=== PATIENT | female | born 1950 | race Caucasian/White ===

== ENCOUNTER 2016-08-11 02:08 | Inpatient (IN) | payer OTHER ==
[~2016-08-11] VITALS: Ht 160 cm; Wt 43.5 kg
[~2016-08-11 02:08] MED LIST: ALIGN4 MG PO; AUGMENTIN 875875 MG PO; BLACK CHERRY PO; CALCIUM 600600 M1 PO; CANASA1000 MG RC; CIPRO 500MG TA500 MG PO; CRANBERRY200 MG PO; CRANBERRY400 M1 PO; DILAUDID2 M1 PO; DILAUDID2 MG PO; FISH OIL CONCEN1 SGL PO; FLAG500 PO; GLUCOSAMINE & C1 CAP PO; HAIR VITAMINS E1 TAB PO; LEVSIN/SL0.125 MG SL; LOMOTIL 0.025 M1 TAB PO; MELATONIN5 M1 PO; MELOXICAM15 MG PO; MSIR PO; OMEPRAZOLE D/R20 MG PO; PERCOCET 325 MG1 TA2 PO; PHENERGAN25 M1 PO; PHENERGAN25 MG PO; PRINIVIL 5MG5 MG PO; PROBIOTIC FORM1 EACH PO; PROBIOTIC FORMU1 CA1 PO; PROMETHAZINE25 M1 PO; REGLAN10 MG PO; TYLENOL TAB 32325 MG PO; VITAMIN B-121000 MC3 PO; VITAMIN C500 M6 PO; VITAMIN D31000 UNI2 PO; VITAMIN E100 I1 PO; VITAMIN E100 UNI3 PO; ZOFRAN 4 MG TABL4 MG PO; ZOFRAN ODT4 MG PO
--- NOTE | 2016-08-11 02:24 | NUR ---
PT WITH HX BOWEL OBSTRUCTION C/O NAUSEA, VOMITING, AND DIFFUSE ABDOMINAL PAIN FOR PAST 4 HOURS.
--- NOTE | 2016-08-11 02:33 | ED GI/GU/ABDOMINAL COMPLAINT ---
History of Present Illness General Chief Complaint: General Adult Stated Complaint: "PER PT N+V+D, CHILLS" Source: patient, family, old records Exam Limitations: no limitations Vital Signs & Intake/Output Vital Signs & Intake/Output Vital Signs Date Time Temp Pulse Resp B/P Pulse O2 O2 Flow FiO2 Ox Delivery Rate 08/11 0431 101 18 148/69 97 08/11 0223 97.7 88 18 154/87 97 Allergies Coded Allergies: NO KNOWN ALLERGIES (09/07/15) Reconcile Medications Ascorbic Acid (Vitamin C) 500 MG TAB 1 TAB PO DAILY SUPPLEMENT (Reported) [BLACK SERNA] 1 CAP PO DAILY SUPPLEMENT (Reported) Cholecalciferol (Vitamin D3) 1,000 UNIT TABLET 1,000 IU PO DAILY VITAMIN D SUPPLEMET (Reported) CRANBERRY FRUIT CONCENTRATE (Cranberry) (Unknown Strength) CAP (Unknown Dose) PO DAILY SUPPLEMENT (Reported) Cyanocobalamin (Vitamin B-12) (Unknown Strength) TAB (Unknown Dose) PO DAILY SUPPLEMENT (Reported) Hydromorphone HCl (Dilaudid) 2 MG TABLET 1 TAB PO Q6H PRN PAIN Lactobacillus Acidophilus (Probiotic Formula Capsule) 1 CAP CAP 1 CAP PO DAILY SUPPLEMENT (Reported) Lisinopril (Prinivil) 5 MG TABLET 1 TAB PO DAILY BP (Reported) Multivitamin, Minerals, and 88 (Hair Vitamins Extra Strength) (Unknown Strength) TAB 1 TAB PO DAILY SUPPLEMENT (Reported) Promethazine Hydrochloride (Phenergan) 25 MG TAB 1 TAB PO Q6H PRN NAUSEA Vitamin E Succinate (Vitamin E) (Unknown Strength) TAB (Unknown Dose) PO DAILY SUPPLEMENT (Reported) Triage Note: PT WITH HX BOWEL OBSTRUCTION C/O NAUSEA LLQ PAIN AND CHILLS FOR PAST 3 HOURS. Triage Nurses Notes Reviewed? yes ? N Is pt currently ? No HPI: Patient presents with a 4 hour long history of crampy diffuse abdominal pain as well as nausea vomiting and diarrhea. The diarrhea is constant over the past few years however the nausea and vomiting is new since this evening. The pain is cramping and is diffuse however there is no radiation outside of the abdominal area. There are no aggravating or mitigating factors. The pain is 10 out of 10. Patient does not know if the pain is similar or dissimilar to her prior small bowel obstructions. Past History Travel History Traveled to [place] past 21 day No Medical History Any Pertinent Medical History? 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 [employer]/Reproductive: miscarriage, OOPHORECTOMY History of MRSA: No History of VRE: No History of CDIFF: No Surgical History Surgical History: colon resection (2001), hysterectomy, right subclavian Port-A- C enucleation right eye bunions ileostomy reversal 2003 laparotomy, lysis of adhesions, revision of anastomosis, ventral hernia repair 01/11/15 ILEECTOMY, LYSIS OF ADHESION Psychosocial History Who do you live with Son Services at Home None What is your primary language Vietnamese Tobacco Use: Never used ETOH Use: denies use Illicit Drug Use: denies illicit drug use Family History Family History, If Any: MOTHER FH: CAD (coronary artery disease) FH: ovarian cancer FATHER FH: CAD (coronary artery disease) FATHER (CAD s/p bipass age 69). Hx Contributory? No Review of Systems Review of Systems Constitutional: Reports: no symptoms. EENTM: Reports: no symptoms. Respiratory: Reports: no symptoms. Cardiovascular: Reports: no symptoms. GI: Reports: see HPI, abdominal pain, diarrhea, nausea, vomiting. Genitourinary: Reports: no symptoms. Musculoskeletal: Reports: no symptoms. Skin: Reports: no symptoms. Neurological/Psychological: Reports: no symptoms. Hematologic/Endocrine: Reports: no symptoms. Immunologic/Allergic: Reports: no symptoms. All Other Systems: Reviewed and Negative Physical Exam Physical Exam General Appearance: well developed/nourished, alert, awake, anxious, severe distress Head: atraumatic, normal appearance Eyes: Bilateral: PERRL, EOMI. Ears, Nose, Throat, Mouth: hearing grossly normal, DRY MUCOUS MEMBRANES Neck: normal inspection, supple, full range of motion Respiratory: normal breath sounds, chest non-tender, no respiratory distress, lungs clear Cardiovascular: regular rate/rhythm, normal peripheral pulses Gastrointestinal: normal bowel sounds, soft, tenderness, NO GUARDING OR REBOUND Back: normal inspection, normal range of motion Extremities: normal range of motion Neurologic/Psych: no motor/sensory deficits, awake, alert, oriented x 3, normal mood/affect Skin: intact, normal color, warm/dry Core Measures ACS in differential dx? No Severe Sepsis Present: No Septic Shock Present: No Progress Differential Diagnosis: bowel obstruction, gastritis, hepatitis, ischemic bowel, inflamm bowel dis, pancreatitis, SBO, UTI/pyelo Plan of Care: Orders Procedure Date/time Status Place in observation 08/11 458 Active Telemetry/Rn Homecare 08/11 229 Active URINALYSIS 08/11 229 Complete TROPONIN LEVEL 08/11 229 Complete LIPASE 08/11 229 Complete COMPREHENSIVE METABOLIC PANEL 08/11 229 Complete CBC WITHOUT DIFFERENTIAL 08/11 229 Complete AMYLASE 08/11 229 Complete EKG 08/11 229 Active Laboratory Tests 08/11/16 0432: Urine Color STRAW, Urine Clarity CLEAR, Urine pH 7.5, Ur Specific [place] 1.010, Urine Protein NEG, Urine Ketones NEG, Urine Nitrite NEG, Urine Bilirubin NEG, Urine Urobilinogen 0.2, Ur Leukocyte Esterase NEG, Ur Microscopic EXAM NOT REQUIRED, Urine Hemoglobin NEG, Urine Glucose NEG 08/11/16 0246: Anion Gap 10, Estimated GFR > 60, BUN/Creatinine Ratio 45.0 H, Glucose 178 H, Calcium 9.2, Total Bilirubin 0.6, AST 26, ALT 53 H, Alkaline Phosphatase 138 H , Troponin I < 0.01, Total Protein 6.7, Albumin 3.8, Globulin 2.9, Albumin/ Globulin Ratio 1.3, Amylase < 30 L, Lipase 123, CBC w Diff MAN DIFF ORDERED, RBC 3.86 L, MCV 82.5, MCH 26.5 L, RDW 16.0 H, MPV 8.0, Gran % 84.6 H, Lymphocytes % 7.8 L, Monocytes % 6.5, Eosinophils % 0.4, Basophils % 0.7, Absolute Granulocytes 11.5 H, Absolute Lymphocytes 1.1 L, Absolute Monocytes 0.9 H, Absolute Eosinophils 0, Absolute Basophils 0.1, Platelet Estimate INCREASED, Polychromasia 1+, Hypochromic-Microcytic 1+, Poikilocytosis 1+, PUBS MCHC 32.2 L Diagnostic Imaging: Viewed by Me: CT Scan. Discussed w/RAD: CT Scan. Radiology Impression: PATIENT: DILIP BUCHANAN PRESENT AGE: 66 PATIENT ACCOUNT NO: [id number] : 49 LOCATION: [facility] ORDERING PHYSICIAN: SIRENA GOLDEN MD SERVICE DATE: 08/11/16 EXAM TYPE: CAT - CT ABD & PELVIS W IV CONTRAST EXAMINATION: CT ABDOMEN AND PELVIS WITH CONTRAST CLINICAL INFORMATION: Pain, vomiting, diarrhea COMPARISON: Multiple priors, most recent 12/13/2015 TECHNIQUE: Multidetector volumetric imaging was performed of the abdomen and pelvis before and after the IV administration of 85 mL of Optiray 320 intravenous contrast. Sagittal and coronal reformatted images were obtained on the technologist's workstation. DLP: 247.41 mGy-cm. FINDINGS: LUNG BASES: The visualized lung bases are unremarkable. LIVER, GALLBLADDER, AND BILIARY TREE: The liver is normal in size, shape, and attenuation. A few scattered hepatic lesions are again noted, largest in the left lobe and favored to reflect cysts. No biliary ductal dilatation is present. The gallbladder is unremarkable with no evidence of radiopaque gallstones, gallbladder wall thickening, or obvious pericholecystic inflammatory changes. PANCREAS: Unremarkable. SPLEEN: Unremarkable. ADRENAL GLANDS: Unremarkable. KIDNEYS AND URETERS: The kidneys are normal in size, shape, and attenuation. No hydronephrosis, hydroureter, or calculi seen. No perinephric stranding. BLADDER: Unremarkable. GASTROINTESTINAL TRACT: There are several loops of mildly dilated, fluid-filled small bowel in the pelvis. The colon is mostly collapsed. Overall pattern is concerning for a small bowel obstruction. Transition point is not discretely identified, though suspected to lie in the region of the central to right pelvis. Overall appearance of small bowel is similar to prior studies including 12/13/2015 and 01/18/2016 ABDOMINAL WALL: No significant hernia is appreciated. LYMPH NODES: Normal. VASCULAR: Scattered atherosclerotic calcifications are present. PELVIC VISCERA: Grossly unremarkable. Presacral fluid is noted. OSSEOUS STRUCTURES: There are degenerative changes in the lumbar spine and bilateral hips. IMPRESSION: Multiple loops of mildly dilated, fluid- filled small bowel in the pelvis. The colon is mostly collapsed, and pattern is suspicious for small bowel obstruction. Of note, overall appearance is similar to prior exams, suggesting recurrent obstruction. DICTATED BY: FIONA GOOD MD DATE/TIME DICTATED:08/11/16433 PILE OPERATOR:AGA DATE/TIME TRANSCRIBED:08/11/16433 CONFIDENTIAL, DO NOT COPY WITHOUT APPROPRIATE AUTHORIZATION. <Electronically signed in Other Vendor System> SIGNED BY: FIONA GOOD MD 08/11/16 0448 Initial ED EKG: NSR, no ST T wave changes Prior EKG: unchanged Rhythm Strip: normal sinus rhythm Departure Departure Disposition: STILL A PATIENT Condition: Stable Clinical Impression Primary Impression: SBO (small bowel obstruction) Referrals: KENNY RAO MD (PCP/Family) Departure Forms: Customer Survey General Discharge Information Observation Note Spoke With: MAHAD HOLMAN,MANSOOR [place] Physician Advisor Notified: CHICO HOLMAN,SIRENA Astudillo Place Patient In: Non-ED OBS Care Area Rationale for Observation: My rational for observation is as follows [nothing by mouth, IV fluids, IV antiemetics, IV pain control. The patient has a history of recurrent small bowel obstructions and they usually resolve on their own however she has required surgical intervention in the past.].
--- NOTE | 2016-08-11 02:49 | NUR ---
PT MEDICATED WITH HYDROMORPHONE 2 MG AND ZOFRAN 4 MG PER ORDER. WILL CONTINUE TO MONITOR.
[2016-08-11 02:54] LABS: ABSOLUTE BASOPHIL COUNT 0.1 /CUMM (0.0-0.2); ABSOLUTE EOSINOPHIL COUNT 0 /CUMM (0.0-0.7); ABSOLUTE GRANULOCYTE CT 11.5 /CUMM (1.4-6.5); ABSOLUTE LYMPH COUNT 1.1 /CUMM (1.2-3.4); ABSOLUTE MONOCYTE COUNT 0.9 /CUMM (0.10-0.60); BASOPHIL % 0.7 % (0.0-2.0); EOSINOPHIL % 0.4 % (0-5); GRANULOCYTE % 84.6 % (42.2-75.2); HEMATOCRIT 31.9 % (37-47); MEAN CORPUSCULAR HGB 26.5 PG (27.0-31.0); MEAN CORPUSCULAR HGB CONC 32.2 G/DL (33.0-37.0); MEAN CORPUSCULAR VOLUME 82.5 FL (81.0-99.0); PLATELET COUNT 443 /CUMM (130-400); RED BLOOD CELL CT 3.86 /CUMM (4.20-5.40); WHITE BLOOD CELL COUNT 13.6 /CUMM (4.8-10.8)
--- NOTE | 2016-08-11 02:54 | NUR ---
EKG DONE AND SHOWN TO DR. GOLDEN.
--- NOTE | 2016-08-11 04:48 | CT SCAN REPORT ---
EXAMINATION: CT ABDOMEN AND PELVIS WITH CONTRAST CLINICAL INFORMATION: Pain, vomiting, diarrhea COMPARISON: Multiple priors, most recent 12/13/2015 TECHNIQUE: Multidetector volumetric imaging was performed of the abdomen and pelvis before and after the IV administration of 85 mL of Optiray 320 intravenous contrast. Sagittal and coronal reformatted images were obtained on the technologist's workstation. DLP: 247.41 mGy-cm. FINDINGS: LUNG BASES: The visualized lung bases are unremarkable. LIVER, GALLBLADDER, AND BILIARY TREE: The liver is normal in size, shape, and attenuation. A few scattered hepatic lesions are again noted, largest in the left lobe and favored to reflect cysts. No biliary ductal dilatation is present. The gallbladder is unremarkable with no evidence of radiopaque gallstones, gallbladder wall thickening, or obvious pericholecystic inflammatory changes. PANCREAS: Unremarkable. SPLEEN: Unremarkable. ADRENAL GLANDS: Unremarkable. KIDNEYS AND URETERS: The kidneys are normal in size, shape, and attenuation. No hydronephrosis, hydroureter, or calculi seen. No perinephric stranding. BLADDER: Unremarkable. GASTROINTESTINAL TRACT: There are several loops of mildly dilated, fluid-filled small bowel in the pelvis. The colon is mostly collapsed. Overall pattern is concerning for a small bowel obstruction. Transition point is not discretely identified, though suspected to lie in the region of the central to right pelvis. Overall appearance of small bowel is similar to prior studies including 12/13/2015 and 01/18/2016 ABDOMINAL WALL: No significant hernia is appreciated. LYMPH NODES: Normal. VASCULAR: Scattered atherosclerotic calcifications are present. PELVIC VISCERA: Grossly unremarkable. Presacral fluid is noted. OSSEOUS STRUCTURES: There are degenerative changes in the lumbar spine and bilateral hips. IMPRESSION: Multiple loops of mildly dilated, fluid-filled small bowel in the pelvis. The colon is mostly collapsed, and pattern is suspicious for small bowel obstruction. Of note, overall appearance is similar to prior exams, suggesting recurrent obstruction.
--- NOTE | 2016-08-11 04:52 | NUR ---
PT REPORTS PAIN AND NAUSEA RETURNING. PT MEDICATED ZOFRAN AND HYDROMORPHONE PER ORDER.
--- NOTE | 2016-08-11 05:30 | NUR ---
PT AMBULATORY TO BATHROOM. GAIT STEADY. TOLERTED WELL
--- NOTE | 2016-08-11 05:41 | Admission Core Measures ---
Admission Lab Results I reviewed the following labs: Laboratory Tests 08/11 08/11 0932 0246 Chemistry Sodium (137 - 145 mmol/L) 141 Potassium (3.5 - 5.1 mmol/L) 3.1 L Chloride (98 - 107 mmol/L) 98 Carbon Dioxide (22 - 30 mmol/L) 33 H Anion Gap (5 - 16) 10 BUN (7 - 17 mg/dL) 18 H Creatinine (0.5 - 1.0 mg/dL) 0.4 L Estimated GFR (>60 ml/min) > 60 BUN/Creatinine Ratio (7 - 25 %) 45.0 H Glucose (65 - 99 mg/dL) 178 H Calcium (8.4 - 10.2 mg/dL) 9.2 Total Bilirubin (0.2 - 1.3 mg/dL) 0.6 AST (14 - 36 U/L) 26 ALT (9 - 52 U/L) 53 H Alkaline Phosphatase (<127 U/L) 138 H Troponin I (< 0.11 ng/ml) < 0.01 Total Protein (6.3 - 8.2 g/dL) 6.7 Albumin (3.5 - 5.0 g/dL) 3.8 Globulin (1.9 - 4.2 gm/dL) 2.9 Albumin/Globulin Ratio (1.1 - 2.2 %) 1.3 Amylase (30 - 110 U/L) < 30 L Lipase (23 - 300 U/L) 123 Hematology CBC w Diff MAN DIFF ORDERED WBC (4.8 - 10.8 /CUMM) 13.6 H RBC (4.20 - 5.40 /CUMM) 3.86 L Hgb (12.0 - 16.0 G/DL) 10.3 L Hct (37 - 47 %) 31.9 L MCV (81.0 - 99.0 FL) 82.5 MCH (27.0 - 31.0 PG) 26.5 L RDW (11.5 - 14.5 %) 16.0 H Plt Count (130 - 400 /CUMM) 443 H MPV (7.4 - 10.4 FL) 8.0 Gran % (42.2 - 75.2 %) 84.6 H Lymphocytes % (20.5 - 51.1 %) 7.8 L Monocytes % (1.7 - 9.3 %) 6.5 Eosinophils % (0 - 5 %) 0.4 Basophils % (0.0 - 2.0 %) 0.7 Absolute Granulocytes (1.4 - 6.5 /CUMM) 11.5 H Absolute Lymphocytes (1.2 - 3.4 /CUMM) 1.1 L Absolute Monocytes (0.10 - 0.60 /CUMM) 0.9 H Absolute Eosinophils (0.0 - 0.7 /CUMM) 0 Absolute Basophils (0.0 - 0.2 /CUMM) 0.1 Platelet Estimate (ADEQUATE) INCREASED Polychromasia 1+ Hypochromic-Microcytic 1+ Poikilocytosis 1+ PUBS MCHC (33.0 - 37.0 G/DL) 32.2 L Urines Urine Color (YEL,AMB,STR) STRAW Urine Clarity (CLEAR) CLEAR Urine pH (5.0 - 8.0) 7.5 Ur Specific [employer] (1.001 - 1.035) 1.010 Urine Protein (NEG,<30 MG/DL) NEG Urine Ketones (NEG) NEG Urine Nitrite (NEG) NEG Urine Bilirubin (NEG) NEG Urine Urobilinogen (0.1 - 1.0 EU/dl) 0.2 Ur Leukocyte Esterase (NEG) NEG Ur Microscopic EXAM NOT REQUIRED Urine Hemoglobin (NEG) NEG Urine Glucose (N MG/DL) NEG Admission Meds I reviewed the following Meds: Current Medications Sig/Millicent Start time Last Medication Dose Stop Time Status Admin Acetaminophen 1,000 MG Q6P PRN 08/11 0545 UNVr (Ofirmev) N/A 1 UNIT (No Carrier) Dextrose/Sodium 1,000 ML .Q10H 08/11 0530 UNVr Chloride (D5W-1/2 Normal Saline 1000ML) Heparin Sodium 5,000 UNIT Q8 08/11 0600 UNVr (Porcine) Hydromorphone HCl 1 MG Q4P PRN 08/11 0545 UNVr (Dilaudid) Morphine Sulfate 2 MG Q2P PRN 08/11 0545 UNVr (Morphine) Ondansetron HCl 4 MG Q8P PRN 08/11 0530 UNVr (Zofran) Acute Coronary Syndrome Inclusion Criteria ACS Diagnosis No Inpatient Core Measures LDL Reminder: If No, please order W/I first 24hr of stay Congestive Heart Failure Inclusion Criteria CHF Diagnosis No Cerebrovascular accident Inclusion Criteria CVA/TIA Diagnosis No Inpatient Core Measures Bedside Swallow Eval Reminder: If BSE failed, place ST order Antithrombotic Reminder: Order Antithrombotic Medication by end of day 2 Antithrombotic Reminder: Document Reason Antithrombotic Not ordered by end of day 2 AFIB/Flutter Reminder: If Present, add to problem list AFIB/Flutter Reminder: Order Anticoag Medication for pts with AFIB/Flutter Atherosclerosis Reminder: If Present, add to problem list LDL Reminder: If No, please order W/I first 24hr of stay PT Order Reminder: If No, please order Venous thromboembolism Inpatient Core Measures VTE Risk Factors: Age > 40 VTE Prophylaxis Ordered Inpt Mech & Pharm No Mech VTE prophylaxis d/t No contraindications No VTE Pharm Prophylaxis d/t No contraindications Inclusion Criteria - Per Current guidelines, there needs to be overlap - treatment for the first 5 days of Warfarin therapy. - Parenteral Anticoagulation (IV or SC) needs to be - given along with Warfarin therapy. VTE Diagnosis No VTE Type NONE VTE Confirmed by (Test) NONE Problem List As ranked by this Provider includes Assessment & Plan 1. Vomiting 2. Abdominal pain HOME MEDS Home Med List Ascorbic Acid (Vitamin C) 500 MG TAB 1 TAB PO DAILY SUPPLEMENT (Reported) [BLACK SERNA] 1 CAP PO DAILY SUPPLEMENT (Reported) Cholecalciferol (Vitamin D3) 1,000 UNIT TABLET 1,000 IU PO DAILY VITAMIN D SUPPLEMET (Reported) CRANBERRY FRUIT CONCENTRATE (Cranberry) (Unknown Strength) CAP (Unknown Dose) PO DAILY SUPPLEMENT (Reported) Cyanocobalamin (Vitamin B-12) (Unknown Strength) TAB (Unknown Dose) PO DAILY SUPPLEMENT (Reported) Hydromorphone HCl (Dilaudid) 2 MG TABLET 1 TAB PO Q6H PRN PAIN Lactobacillus Acidophilus (Probiotic Formula Capsule) 1 CAP CAP 1 CAP PO DAILY SUPPLEMENT (Reported) Lisinopril (Prinivil) 5 MG TABLET 1 TAB PO DAILY BP (Reported) Multivitamin, Minerals, and 88 (Hair Vitamins Extra Strength) (Unknown Strength) TAB 1 TAB PO DAILY SUPPLEMENT (Reported) Promethazine Hydrochloride (Phenergan) 25 MG TAB 1 TAB PO Q6H PRN NAUSEA Vitamin E Succinate (Vitamin E) (Unknown Strength) TAB (Unknown Dose) PO DAILY SUPPLEMENT (Reported)
--- NOTE | 2016-08-11 06:31 | NUR ---
PT APPEARS COMFORTABLE AFTER BEING MEDICATED. PT REPORTS NAUSEA AND PAIN SUBSIDING.
--- NOTE | 2016-08-11 07:35 | NUR ---
PT SLEEPING AT THIS TIME
--- NOTE | 2016-08-11 07:41 | NUR ---
PT AWAKE STATES HER NAUSEA IS RETURNING HOUSE STAFF PAGED AT [phone] PT HAS ORDER FOR Q8 AND RECEIVED LAST DOSE AT 0800
--- NOTE | 2016-08-11 07:51 | NUR ---
SPOKE WITH CHIOMA ALBERTS SHE WILL ORDER MEDICATION
--- NOTE | 2016-08-11 08:29 | NUR ---
PT AMBULATED BACK AND FORTH TO BR WITH STAND BY ASSIST OF1
--- NOTE | 2016-08-11 08:29 | NUR ---
PT MEDICATED FOR PAIN (SEE MAR)
--- NOTE | 2016-08-11 10:29 | NUR ---
PT MEDICATED WITH MORPHINE FOR PAIN
--- NOTE | 2016-08-11 10:52 | NUR ---
PT HAS BED ASSIGNMENT [id number] NOTIFIED.
--- NOTE | 2016-08-11 11:21 | NUR ---
PT GIVEN RICE SOCK STATES SHE IS FEELING BETTER AFTER THE MORPHINE
[2016-08-11 14:15] VITALS: BP 120/70
--- NOTE | 2016-08-11 15:43 | Patient Discharge Instructions ---
Discharge Instructions General Discharge Information You were seen/treated for: Abdominal pain and questionable partial small bowel obstruction You had these procedures: Conservative management Watch for these problems: Significantly increased pain, temperature, vomiting, increased abdominal distention or no bowel movements for 48 hours Diet Continue normal diet: Yes Activity Full Activity/No Limits: Yes Acute Coronary Syndrome Inclusion Criteria At DC or during hospital stay patient has or had the following: ACS DIAGNOSIS No Discharge Core Measures Meds if any: Prescribed or Continued at Discharge Meds if any: NOT Prescribed or Continued at Discharge Congestive Heart Failure Inclusion Criteria At DC or during hospital stay patient has or had the following: CHF DIAGNOSIS No Discharge Core Measures Meds if any: Prescribed or Continued at Discharge Meds if any: NOT Prescribed or Continued at Discharge Cerebrovascular accident Inclusion Criteria At DC or during hospital stay patient has or had the following: CVA/TIA Diagnosis No Discharge Core Measures Meds if any: Prescribed or Continued at Discharge Meds if any: NOT Prescribed or Continued at Discharge Venous thromboembolism Inclusion Criteria VTE Diagnosis No VTE Type NONE VTE Confirmed by (Test) NONE Discharge Core Measures - Per Current guidelines, there needs to be overlap - treatment for the first 5 days of Warfarin therapy. - If discharged on Warfarin prior to 5 days of - overlap therapy, the patient will need to be - assessed for post discharge needs including - *Post discharge parental anticoagulation - *Warfarin and/or parental anticoagulation education - *Follow up date to check INR post discharge At least 5 days overlap therapy as Inpatient No Meds if any: Prescribed or Continued at Discharge Note: Overlap Therapy is Warfarin and Anticoagulant Meds if any: NOT Prescribed or Continued at Discharge
--- NOTE | 2016-08-11 16:52 | History & Physical Pre-Op ---
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 I saw last in my office postoperatively after an ileocecectomy back in June 2015 a little over a year ago, then my colleague admitted her briefly for recurrent symptoms last November. Just prior to this, she underwent a lysis of adhesions at another facility. Now she returns to the ER for the first time since November complaining of 4 hours of increased abdominal pain and vomiting, no diarrhea. This is a recurrent set of symptoms and despite the gap, this is the seventh time this year. Patient denies any fevers or sweats or upper respiratory symptoms, wonders if it's the flu bug going around. She has stopped vomiting in the ER. She denies any unusual meals unusual straining she doesn't recall anything unusual prior to onset today. The abdominal pain is relieved with IV analgesics. I've reviewed the PFSH and ROS and there are no changes unless stated here since the ENM done here on 12/30/2014. No history of GERD, PUD, bleeding problems, heart disease or issues with anesthesia. Allergies/Medications Allergies: Coded Allergies: NO KNOWN ALLERGIES (09/07/15) Home Med list Ascorbic Acid (Vitamin C) 500 MG TAB 1 TAB PO DAILY SUPPLEMENT (Reported) [BLACK SERNA] 1 CAP PO DAILY SUPPLEMENT (Reported) Cholecalciferol (Vitamin D3) 1,000 UNIT TABLET 1,000 IU PO DAILY VITAMIN D SUPPLEMET (Reported) CRANBERRY FRUIT CONCENTRATE (Cranberry) (Unknown Strength) CAP (Unknown Dose) PO DAILY SUPPLEMENT (Reported) Cyanocobalamin (Vitamin B-12) (Unknown Strength) TAB (Unknown Dose) PO DAILY SUPPLEMENT (Reported) Hydromorphone HCl (Dilaudid) 2 MG TABLET 1 TAB PO Q6H PRN PAIN Lactobacillus Acidophilus (Probiotic Formula Capsule) 1 CAP CAP 1 CAP PO DAILY SUPPLEMENT (Reported) Lisinopril (Prinivil) 5 MG TABLET 1 TAB PO DAILY BP (Reported) Multivitamin, Minerals, and 88 (Hair Vitamins Extra Strength) (Unknown Strength) TAB 1 TAB PO DAILY SUPPLEMENT (Reported) Promethazine Hydrochloride (Phenergan) 25 MG TAB 1 TAB PO Q6H PRN NAUSEA Vitamin E Succinate (Vitamin E) (Unknown Strength) TAB (Unknown Dose) PO DAILY SUPPLEMENT (Reported) Past History Medical History Blood Transfusion Hx: No Neurological: NONE EENT: LT.EYE ENUCLEATION Cardiovascular: hypertension Respiratory: pulmonary embolism (- and DVT s/p completion of AC) Gastrointestinal: umbilical hernia, SMALL BOWEL OBSTRUCTIONS Hepatic: NONE Renal: NONE Musculoskeletal: osteoarthritis, BUNIONS Psychiatric: NONE Endocrine: NONE Blood Disorders: NONE Cancer(s): colon/rectal cancer (s/p chemo, xrt, resection), 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 Psychosocial History Who Do You Live With? child Services at Home None Smoking Status: Former Smoker ETOH Use: denies use Illicit Drug Use: denies illicit drug use Functional Ability ADLs Independent: dressing, eating, toileting, bathing. IADLs Independent: shopping, housework, finances, food prep, telephone, transportation , medication admin. Review of Systems Review of Systems: Reviewed as stated above Exam & Diagnostic Data Last 24 Hrs of Vital Signs/I&O I reviewed Vital Signs Date Time Temp Pulse Resp B/P Pulse O2 O2 Flow FiO2 Ox Delivery Rate 08/11 1415 98.2 76 20 120/70 95 Room Air 08/11 1032 98.6 80 18 177/84 100 Room Air 08/11 1029 97.8 75 18 130/63 08/11 0647 97.8 75 18 130/63 100 Room Air 08/11 0431 101 18 148/69 97 08/11 0223 97.7 88 18 154/87 97 I reviewed Intake & Output 08/11 1600 08/11 0800 08/11 0000 Intake Total 2000 Output Total Balance 2000 Intake, IV 2000 Patient 96 lb 96 lb 15.98 oz Weight Physical Exam: Constitutional: pleasant, no acute distress, conversant Eyes: sclera anicteric ENMT: ears and nose atraumatic, moist mucous membranes, good dentition, no lip lesions Neck: Supple, trachea is midline, no cervical or supraclavicular adenopathy and no palpable thyromegaly Cardiovascular: S1, S2, no murmurs, no peripheral edema Respiratory: clear to auscultation with normal respiratory effort and no intercostal retractions GI: abdomen soft, not focally tender, no rebound, nondistended, no palpable hepatosplenomegaly Extremities / lymphatics: symmetrically warm, free range of motion no peripheral edema, no cervical, supraclavicular, axillary, or inguinal adenopathy Musculoskeletal: Denies evaluate gait and station, no digital cyanosis, good muscle strength and tone no atrophy, motor grossly 5 out of 5 throughout Skin: no jaundice, no rashes warm, nondiaphoretic, no areas of erythema or induration Psychiatric: mood and affect are appropriate and alert and oriented to person place and time Last 24 Hrs of Labs/Gilbert: I reviewed Laboratory Tests 08/11/16 0432: Urine Color STRAW, Urine Clarity CLEAR, Urine pH 7.5, Ur Specific [place] 1.010, Urine Protein NEG, Urine Ketones NEG, Urine Nitrite NEG, Urine Bilirubin NEG, Urine Urobilinogen 0.2, Ur Leukocyte Esterase NEG, Ur Microscopic EXAM NOT REQUIRED, Urine Hemoglobin NEG, Urine Glucose NEG 08/11/16 0246: Anion Gap 10, Estimated GFR > 60, BUN/Creatinine Ratio 45.0 H, Glucose 178 H, Calcium 9.2, Total Bilirubin 0.6, AST 26, ALT 53 H, Alkaline Phosphatase 138 H , Troponin I < 0.01, Total Protein 6.7, Albumin 3.8, Globulin 2.9, Albumin/ Globulin Ratio 1.3, Amylase < 30 L, Lipase 123, CBC w Diff MAN DIFF ORDERED, RBC 3.86 L, MCV 82.5, MCH 26.5 L, RDW 16.0 H, MPV 8.0, Gran % 84.6 H, Lymphocytes % 7.8 L, Monocytes % 6.5, Eosinophils % 0.4, Basophils % 0.7, Absolute Granulocytes 11.5 H, Absolute Lymphocytes 1.1 L, Absolute Monocytes 0.9 H, Absolute Eosinophils 0, Absolute Basophils 0.1, Platelet Estimate INCREASED, Polychromasia 1+, Hypochromic-Microcytic 1+, Poikilocytosis 1+, PUBS MCHC 32.2 L I reviewed the CT scan on PACS myself from earlier today compared it to the previous one on 12/13/2015, there are similar current film shows a slightly paulson stomach but she has chronically dilated small bowel and also suggested on the report there is no definite transition point. Assessment/Plan Assessment/Plan: Impression is given her history she possibly has so we should treat her for one but she does improve rapidly and at this point doesn't need an NG tube, the small bowel obstruction could be presumably from adhesions from prior surgeries, often exacerbated by an unusual meal high in fiber or chewy food, or even straining, which her history doesn't suggest, perhaps she really does have the GI bug it's prevalent. In the meantime will treat in routine nonoperative fashion with bowel rest, hold off on NG tube unless she worsens, give maintenance IV fluids and for the GI losses, monitor uo, electrolytes, vital signs, serial exams, labs, abdominal x-rays, as before her labs suggest an element of dehydration. Presently there are no peritoneal signs, if situation plateaus or worsens, especially if abdominal pain worsens in next 6-12 hours, might need urgent surgical intervention in the interest of bowel viability, but as I explained, most of the time it is not needed. As Ranked By This Provider Problem List: 1. Vomiting 2. Dehydration 3. Nausea and vomiting 4. Abdominal pain 5. Partial small bowel obstruction 6. Enteritis Attending MD Review Statement Attending Statement Attending MD Statement: examined this patient
[2016-08-11 22:10] VITALS: BP 132/60
--- NOTE | 2016-08-12 04:37 | NUR ---
LATE ENTRY; PT COMPLAINS OF 10/10 PAIN, PA AWARE, PT IS NOT TO RECIEVE ADDITIONAL PAIN MEDS. PT REFUSED DISCHARGE 08/11. DC ORDER ACTIVE AT THIS TIME.
[2016-08-12 06:33] VITALS: BP 150/72
[2016-08-12 08:12] LABS: ABSOLUTE BASOPHIL COUNT 0 /CUMM (0.0-0.2); ABSOLUTE EOSINOPHIL COUNT 0 /CUMM (0.0-0.7); ABSOLUTE GRANULOCYTE CT 8.5 /CUMM (1.4-6.5); ABSOLUTE LYMPH COUNT 0.7 /CUMM (1.2-3.4); ABSOLUTE MONOCYTE COUNT 0.6 /CUMM (0.10-0.60); BASOPHIL % 0.1 % (0.0-2.0); EOSINOPHIL % 0.1 % (0-5); GRANULOCYTE % 86.4 % (42.2-75.2); HEMATOCRIT 32.2 % (37-47); MEAN CORPUSCULAR HGB 26.8 PG (27.0-31.0); MEAN CORPUSCULAR HGB CONC 32.7 G/DL (33.0-37.0); MEAN CORPUSCULAR VOLUME 82.1 FL (81.0-99.0); MEAN PLATELET VOLUME 8.5 FL (7.4-10.4); PLATELET COUNT 425 /CUMM (130-400); RBC DISTRIBUTION WIDTH 15.8 % (11.5-14.5); RED BLOOD CELL CT 3.93 /CUMM (4.20-5.40); WHITE BLOOD CELL COUNT 9.9 /CUMM (4.8-10.8)
[2016-08-12 14:34] VITALS: BP 160/80
--- NOTE | 2016-08-12 16:55 | NUR ---
LATE ENTRY: ADMISSION NOTE. PT ARRIVED ON THE FLOOR FROM ED ON STRETCHER, AMBULATED TO BED ON OWN, ALERT AND ORIETNED X3 VSS AFEBRILE, C/O ABD PAIN 8-04/05 STATING " MEDICATINS IN THE ED HAVE NOT HELPED". PT HAS PIV#20 TO RAC WITH D5 1/2NS RUNNING @75ML/HR. PT IS BEING ADMITTED A 23 HOUR OBS TO RULE OUT SBO VS VIRAL INFECTION. PT DENIES NAUSEA AT THIS TIME. ORIENTED TO ROOM CALL DYSON BED CONTROLS. PT AMBULATED TO THE BATHROOM WITH MINIMAL ASSISTANCE. WILL CONT TO MONITOR
--- NOTE | 2016-08-12 19:27 | NUR ---
PER DR. TOBIN, PT DOES NOT NEED TO BE ON TELE MONITOR AND ORDER WILL BE REMOVED LATER HE IS IN SX NOW. K+ 2.7 THIS AM, PT REPLETED DURING DAY SHIFT. BLOOD WORK OBTAINED AT 1800 AND RESULTS PENDING.
--- NOTE | 2016-08-12 20:45 | PN- General Surgery ---
Subjective Subjective: followup SBO, no more nausea vomiting still has abdominal pain passing a little bit of gas no bowel movement no fevers no sweats Objective Vital Signs and I&Os I reviewed Vital Signs Date Time Temp Pulse Resp B/P Pulse O2 O2 Flow FiO2 Ox Delivery Rate 08/12 1434 99.0 85 20 160/80 96 Room Air 08/12 1035 70 148/90 08/12 0633 97.9 69 20 150/72 98 Room Air 08/11 2210 98.0 87 20 132/60 98 I reviewed Intake & Output 08/12 1600 08/12 0800 08/12 0000 08/11 1600 08/11 0800 08/11 0000 Intake Total 1400 102 979 3514 Output Total Balance 1400 859 969 5358 Intake, IV 800 356 665 9539 Intake, Oral 600 Patient 96 lb 96 lb 15.98 oz Weight Physical Exam: Constitutional: no acute distress no pain Eyes: sclera anicteric ENMT: moist mucous membranes Cardiovascular: S1-S2 no murmurs no peripheral edema Respiratory: clear to auscultation with normal respiratory effort and no intercostal retractions GI: abdomen soft nontender nondistended Extremities / lymphatics: free range of motion no peripheral edema Skin: no jaundice no rashes warm, nondiaphoretic Psychiatric: mood and affect are appropriate and alert and oriented to person place and time Current Medications: I reviewed Current Medications Sig/Millicent Start time Last Medication Dose Route Stop Time Status Admin Acetaminophen 1,000 MG Q6P PRN 08/11 0545 N/A 1 UNIT IV Dextrose/Sodium 1,000 ML .Q10H 08/11 0530 DC 08/12 Chloride IV 0030 Heparin Sodium 5,000 UNIT Q8 08/11 0600 08/12 (Porcine) SC 1350 Hydromorphone HCl 2 MG Q6P PRN 08/11 1545 AC 08/12 PO 1845 Lisinopril 5 MG DAILY 08/11 1000 AC 08/12 PO 1035 Ondansetron HCl 4 MG .STK-MED ONE 08/12 0533 DC IM 08/12 0534 Ondansetron HCl 4 MG Q6-PRN PRN 08/11 0800 08/12 IV 1351 Potassium Chloride 40 MEQ BID 08/12 1000 AC 08/12 PO 08/12 2201 1033 Potassium Chloride 20 MEQ Q10H 08/12 0915 08/12 Dextrose/Sodium 1,000 ML IV 1959 Chloride Trimethobenzamide HCl 200 MG TID PRN 08/11 0800 AC 08/11 IM 0758 Results Last 48 Hours of Labs: I reviewed Laboratory Tests 08/12 08/12 1800 0630 Chemistry Sodium (137 - 145 mmol/L) 136 L 137 Potassium (3.5 - 5.1 mmol/L) 3.2 L 2.7 *L Chloride (98 - 107 mmol/L) 97 L 97 L Carbon Dioxide (22 - 30 mmol/L) 29 29 Anion Gap (5 - 16) 9 11 BUN (7 - 17 mg/dL) 8 Creatinine (0.5 - 1.0 mg/dL) 0.4 L Estimated GFR (>60 ml/min) > 60 BUN/Creatinine Ratio (7 - 25 %) 20.0 Hematology CBC w Diff NO MAN DIFF REQ WBC (4.8 - 10.8 /CUMM) 9.9 RBC (4.20 - 5.40 /CUMM) 3.93 L Hgb (12.0 - 16.0 G/DL) 10.5 L Hct (37 - 47 %) 32.2 L MCV (81.0 - 99.0 FL) 82.1 MCH (27.0 - 31.0 PG) 26.8 L RDW (11.5 - 14.5 %) 15.8 H Plt Count (130 - 400 /CUMM) 425 H MPV (7.4 - 10.4 FL) 8.5 Gran % (42.2 - 75.2 %) 86.4 H Lymphocytes % (20.5 - 51.1 %) 7.4 L Monocytes % (1.7 - 9.3 %) 6.0 Eosinophils % (0 - 5 %) 0.1 Basophils % (0.0 - 2.0 %) 0.1 Absolute Granulocytes (1.4 - 6.5 /CUMM) 8.5 H Absolute Lymphocytes (1.2 - 3.4 /CUMM) 0.7 L Absolute Monocytes (0.10 - 0.60 /CUMM) 0.6 Absolute Eosinophils (0.0 - 0.7 /CUMM) 0 Absolute Basophils (0.0 - 0.2 /CUMM) 0 PUBS MCHC (33.0 - 37.0 G/DL) 32.7 L 08/11 08/11 0432 0246 Chemistry Sodium (137 - 145 mmol/L) 141 Potassium (3.5 - 5.1 mmol/L) 3.1 L Chloride (98 - 107 mmol/L) 98 Carbon Dioxide (22 - 30 mmol/L) 33 H Anion Gap (5 - 16) 10 BUN (7 - 17 mg/dL) 18 H Creatinine (0.5 - 1.0 mg/dL) 0.4 L Estimated GFR (>60 ml/min) > 60 BUN/Creatinine Ratio (7 - 25 %) 45.0 H Glucose (65 - 99 mg/dL) 178 H Calcium (8.4 - 10.2 mg/dL) 9.2 Total Bilirubin (0.2 - 1.3 mg/dL) 0.6 AST (14 - 36 U/L) 26 ALT (9 - 52 U/L) 53 H Alkaline Phosphatase (<127 U/L) 138 H Troponin I (< 0.11 ng/ml) < 0.01 Total Protein (6.3 - 8.2 g/dL) 6.7 Albumin (3.5 - 5.0 g/dL) 3.8 Globulin (1.9 - 4.2 gm/dL) 2.9 Albumin/Globulin Ratio (1.1 - 2.2 %) 1.3 Amylase (30 - 110 U/L) < 30 L Lipase (23 - 300 U/L) 123 Hematology CBC w Diff MAN DIFF ORDERED WBC (4.8 - 10.8 /CUMM) 13.6 H RBC (4.20 - 5.40 /CUMM) 3.86 L Hgb (12.0 - 16.0 G/DL) 10.3 L Hct (37 - 47 %) 31.9 L MCV (81.0 - 99.0 FL) 82.5 MCH (27.0 - 31.0 PG) 26.5 L RDW (11.5 - 14.5 %) 16.0 H Plt Count (130 - 400 /CUMM) 443 H MPV (7.4 - 10.4 FL) 8.0 Gran % (42.2 - 75.2 %) 84.6 H Lymphocytes % (20.5 - 51.1 %) 7.8 L Monocytes % (1.7 - 9.3 %) 6.5 Eosinophils % (0 - 5 %) 0.4 Basophils % (0.0 - 2.0 %) 0.7 Absolute Granulocytes (1.4 - 6.5 /CUMM) 11.5 H Absolute Lymphocytes (1.2 - 3.4 /CUMM) 1.1 L Absolute Monocytes (0.10 - 0.60 /CUMM) 0.9 H Absolute Eosinophils (0.0 - 0.7 /CUMM) 0 Absolute Basophils (0.0 - 0.2 /CUMM) 0.1 Platelet Estimate (ADEQUATE) INCREASED Polychromasia 1+ Hypochromic-Microcytic 1+ Poikilocytosis 1+ PUBS MCHC (33.0 - 37.0 G/DL) 32.2 L Urines Urine Color (YEL,AMB,STR) STRAW Urine Clarity (CLEAR) CLEAR Urine pH (5.0 - 8.0) 7.5 Ur Specific [place] (1.001 - 1.035) 1.010 Urine Protein (NEG,<30 MG/DL) NEG Urine Ketones (NEG) NEG Urine Nitrite (NEG) NEG Urine Bilirubin (NEG) NEG Urine Urobilinogen (0.1 - 1.0 EU/dl) 0.2 Ur Leukocyte Esterase (NEG) NEG Ur Microscopic EXAM NOT REQUIRED Urine Hemoglobin (NEG) NEG Urine Glucose (N MG/DL) NEG Assessment/Plan Assessment/Plan Possible partial small bowel obstruction appears to be resolving there are signs of bowel function no need for NG tube at this time may start some clear liquid diet I encouraged her to avoid the narcotic analgesics because I feel that they contribute to the slow transit if not almost an ileus type of pattern, which is compounded by some chronic radiation enteritis distally. Core Measures/Miscellaneous Venous Thromboembolism VTE Risk Factors: Acute medical illness VTE Contraindications: No Contraindications VTE Prophylaxis Ordered Inpt Mech & Pharm VTE Diagnosis: No VTE Type: NONE VTE Confirmed by (Test): NONE Beta Saravanan Is Beta Saravanan a Home Med? No Antibiotics Is Patient on Antibiotics? No
[2016-08-12 21:05] VITALS: BP 170/76
[2016-08-12 22:29] VITALS: BP 180/90
[2016-08-13] VITALS: BP 176/70
--- NOTE | 2016-08-13 03:54 | NUR ---
PT BP 176/70 HR 80, SUGRICIAL ARISTEO DASILVA MADE AWARE, NO NEW ORDERS AT THIS TIME.
[2016-08-13 06:30] VITALS: BP 154/90
--- NOTE | 2016-08-13 07:35 | PN- General Surgery ---
Subjective Subjective: Awake, alert Feels better than yesterday Still with chronic abdominal pain - no nausea Objective Vital Signs and I&Os Vital Signs Date Time Temp Pulse Resp B/P Pulse O2 O2 Flow FiO2 Ox Delivery Rate 08/13 0630 98.2 73 18 154/90 97 Room Air 08/13 0000 80 176/70 08/12 2229 98.5 82 20 180/90 98 Room Air 08/12 2105 170/76 08/12 1434 99.0 85 20 160/80 96 Room Air 08/12 1035 70 148/90 Intake & Output 08/13 0800 08/13 0000 08/12 1600 08/12 0800 08/12 0000 08/11 1600 Intake Total 470 513 6586 800 300 Output Total Balance 915 480 8372 800 300 Intake, IV 800 800 800 300 Intake, Oral 120 240 600 Number 0 Bowel Movements Patient 96 lb Weight Physical Exam: BP slightly high - diastolic reading 90 Other VSS afebrile No loose stools since admission General: alert and oriented Chest: clear anteriorly bilaterally, RRR Abd: soft, nondistended, good bs Ext: warm, no edema Assessment/Plan Assessment/Plan 66 yo female with recurrent chronic abdominal pain fu labs this am monitor potassium continue regular diet continue home dilaudid dose - pt takes this chronically Will discuss with attending - further plan to follow Core Measures/Miscellaneous Venous Thromboembolism VTE Risk Factors: Age > 40 VTE Contraindications: No Contraindications VTE Prophylaxis Ordered Inpt Mech & Pharm VTE Diagnosis: No VTE Type: NONE VTE Confirmed by (Test): NONE Beta Saravanan Is Beta Saravanan a Home Med? No Antibiotics Is Patient on Antibiotics? No
[2016-08-13 14:32] VITALS: BP 170/94
--- NOTE | 2016-08-13 15:05 | NUR ---
1430- B/P 170/94. B/P THIS MORNING 148/84. LISINOPRIL GIVEN THIS MORNING. SURG PA TU MUNOZ NOTIFIED OF ABOVE. NO NEW ORDERS GIVEN.
--- NOTE | 2016-08-13 16:52 | NUR ---
1630-B/P 168/96, HR 90, RR 18, O2 SAT 97% ON RA. PT COMPLAINING OF SOB AND CONTINUED PAIN. POOR PO INTAKE TODAY. ABOVE REPORTED TO SURG ARISTEO MUNOZ. DISCHARGE ORDER CURRENTLY IN PLACE. PER SURG PA, SHE WILL REPORT ABOVE TO DR TOBIN. NO NEW ORDERS AT THIS TIME.
--- NOTE | 2016-08-13 17:27 | PN- General Surgery ---
Subjective Subjective: f/up abdomial pain, still no vomiting passing gas no bowel movement there has been some relief of abdominal pain with IV analgesics nonnarcotic, this afternoon it was noted that her blood pressure is elevated and the patient feels short of breath. Patient denies any increase in abdominal or chest pain denies any leg swelling or discomfort, she has tried a little bit of solid food today. Objective Vital Signs and I&Os I reviewed Vital Signs Date Time Temp Pulse Resp B/P Pulse O2 O2 Flow FiO2 Ox Delivery Rate 08/13 1441 98.1 90 18 98 Room Air 08/13 1432 170/94 08/13 0954 70 148/84 08/13 0630 98.2 73 18 154/90 97 Room Air 08/13 0000 80 176/70 08/12 2229 98.5 82 20 180/90 98 Room Air 08/12 2105 170/76 I reviewed Intake & Output 08/13 1600 08/13 0800 08/13 0000 08/12 1600 08/12 0800 08/12 0000 Intake Total 1400 750 166 2787 800 300 Output Total Balance 1400 704 142 6899 800 300 Intake, IV 800 800 800 800 300 Intake, Oral 600 120 240 600 Number 0 Bowel Movements Physical Exam: Constitutional: no acute distress no pain Eyes: sclera anicteric ENMT: moist mucous membranes Cardiovascular: S1-S2 no murmurs no peripheral edema Respiratory: clear to auscultation with normal respiratory effort and no intercostal retractions GI: abdomen soft nontender nondistended Extremities / lymphatics: free range of motion no peripheral edema Skin: no jaundice no rashes warm, nondiaphoretic Psychiatric: mood and affect are appropriate and alert and oriented to person place and time Current Medications: I reviewed Current Medications Sig/Millicent Start time Last Medication Dose Route Stop Time Status Admin Acetaminophen 1,000 MG Q6P PRN 08/11 0545 AC 08/12 N/A 1 UNIT IV 2258 Heparin Sodium 5,000 UNIT Q8 08/11 0600 AC 08/13 (Porcine) SC 1424 Hydromorphone HCl 2 MG Q6P PRN 08/11 1545 AC 08/13 PO 0116 Ketorolac 30 MG Q8P PRN 08/12 2100 AC 08/13 Tromethamine IV 08/13 2101 1424 Lisinopril 5 MG DAILY 08/11 1000 AC 08/13 PO 0954 Magnesium Sulfate 1 GM Q2H 08/13 0930 DC 08/13 Dextrose/Water 100 ML IV 08/13 1329 1416 Ondansetron HCl 4 MG .STK-MED ONE 08/13 0054 DC IM 08/13 0055 Ondansetron HCl 4 MG Q6-PRN PRN 08/11 0800 AC 08/13 IV 0101 Patient Medication 1 ED .STK-MED ONE 08/13 1408 DC Teaching ED 08/13 1409 Potassium Chloride 40 MEQ ONCE ONE 08/13 0930 DC 08/13 PO 08/13 0931 1157 Potassium Chloride 40 MEQ BID 08/12 1000 DC 08/12 PO 08/12 2201 2113 Potassium Chloride 20 MEQ Q10H 08/12 0915 DC 08/13 Dextrose/Sodium 1,000 ML IV 0557 Chloride Trimethobenzamide HCl 200 MG TID PRN 08/11 0800 AC 08/11 IM 0758 Results Last 48 Hours of Labs: I reviewed Laboratory Tests 08/13 08/12 08/12 0625 1800 0630 Chemistry Sodium (137 - 145 mmol/L) 135 L 136 L 137 Potassium (3.5 - 5.1 mmol/L) 3.8 3.2 L 2.7 *L Chloride (98 - 107 mmol/L) 98 97 L 97 L Carbon Dioxide (22 - 30 mmol/L) 28 29 29 Anion Gap (5 - 16) 9 9 11 BUN (7 - 17 mg/dL) 5 L 8 Creatinine (0.5 - 1.0 mg/dL) 0.4 L 0.4 L Estimated GFR (>60 ml/min) > 60 > 60 BUN/Creatinine Ratio (7 - 25 %) 12.5 20.0 Magnesium (1.6 - 2.3 mg/dL) 1.4 L Hematology CBC w Diff NO MAN DIFF REQ WBC (4.8 - 10.8 /CUMM) 9.9 RBC (4.20 - 5.40 /CUMM) 3.93 L Hgb (12.0 - 16.0 G/DL) 10.5 L Hct (37 - 47 %) 32.2 L MCV (81.0 - 99.0 FL) 82.1 MCH (27.0 - 31.0 PG) 26.8 L RDW (11.5 - 14.5 %) 15.8 H Plt Count (130 - 400 /CUMM) 425 H MPV (7.4 - 10.4 FL) 8.5 Gran % (42.2 - 75.2 %) 86.4 H Lymphocytes % (20.5 - 51.1 %) 7.4 L Monocytes % (1.7 - 9.3 %) 6.0 Eosinophils % (0 - 5 %) 0.1 Basophils % (0.0 - 2.0 %) 0.1 Absolute Granulocytes (1.4 - 6.5 /CUMM) 8.5 H Absolute Lymphocytes (1.2 - 3.4 /CUMM) 0.7 L Absolute Monocytes (0.10 - 0.60 /CUMM) 0.6 Absolute Eosinophils (0.0 - 0.7 /CUMM) 0 Absolute Basophils (0.0 - 0.2 /CUMM) 0 PUBS MCHC (33.0 - 37.0 G/DL) 32.7 L Assessment/Plan Assessment/Plan Impression is gradually improving bowel function and pain control, now with new onset elevated blood pressure and dyspnea, physical exam is unchanged, encouraged her to eat out of bed in the meantime we will check a chest x-ray and consult medicine for example perhaps she needs an increase in her blood pressure medication temporarily. Problem List: 1. Hypertension 2. Dyspnea Core Measures/Miscellaneous Venous Thromboembolism VTE Risk Factors: Age > 40 VTE Contraindications: No Contraindications VTE Prophylaxis Ordered Inpt Mech & Pharm VTE Diagnosis: No VTE Type: NONE VTE Confirmed by (Test): NONE Beta Saravanan Is Beta Saravanan a Home Med? No Antibiotics Is Patient on Antibiotics? No
--- NOTE | 2016-08-13 19:16 | RADIOLOGY REPORT ---
EXAMINATION: XR CHEST CLINICAL INFORMATION: Shortness of breath. COMPARISON: None. TECHNIQUE: PA and lateral views of the chest were obtained. FINDINGS: Hyperinflation of lungs. Lungs are clear. No pulmonary vascular congestion. No infiltrate or pleural effusion. No pneumothorax. Heart size is normal. Cardiac and mediastinal contours are normal. Degenerative change of both shoulders involving the glenohumeral joint with joint space narrowing and spur. There is residual deformity of an old healed fracture of the left proximal humerus. Ossified loose bodies are present in the left and right shoulder joints. Multilevel degenerative change of dorsal spine with disc height narrowing and endplate spurs of the vertebrae. IMPRESSION: No acute abnormality of chest.
--- NOTE | 2016-08-13 22:07 | NUR ---
Patient BP 160/100, no chest pain, TAMEZ, dizziness. Pulse 76, O2 saturation 99% on RA, lungs clear. Discussed with surgical ARISTEO Lux, no changes to POC at this time. Will continue to monitor.
[2016-08-13 23:49] VITALS: BP 160/100
[2016-08-14 06:42] VITALS: BP 158/90
--- NOTE | 2016-08-14 08:53 | PN- General Surgery ---
See Addendum Subjective Subjective: Discharge held yesterday due to reported shortness of breath, with no evidence of hypoxia. No acute findings by chest xray last night. Her blood pressure remains elevated with her usual dose of lisinopril 5 mg from home. She reports her blood pressure is usually much lower than it has been reading here. She is currently asking for toradol for abdominal discomfort. Tolerating diet. Intermittent nausea. Passing flatus. No more loose stools reported since admission. Objective Vital Signs and I&Os Vital Signs Date Time Temp Pulse Resp B/P Pulse O2 O2 Flow FiO2 Ox Delivery Rate 08/14 0642 98.4 91 18 158/90 97 Room Air 08/13 2349 98.0 99 20 160/100 98 Room Air 08/13 1441 98.1 90 18 98 Room Air 08/13 1432 170/94 08/13 0954 70 148/84 Intake & Output 08/14 1600 08/14 0800 08/14 0000 08/13 1600 08/13 0800 08/13 0000 Intake Total 739 683 8789 920 240 Output Total 300 400 Balance -723 455 9565 920 240 Intake, IV 800 800 Intake, Oral 100 500 600 120 240 Number 0 Bowel Movements Output, Urine 300 400 Physical Exam: General - alert & oriented x 3. no acute distress. Lungs - clear bilaterally. no w/r/r. Cardiac - s1s2. reg. Abdomen - soft. nondistended. bowel sounds appreciated. Extremities - warm bilaterally. no c/c/e. calves soft and nontender b/l. 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 no more loose stools reported since admission. f/u labs toradol prn dilaudid is her home med for chronic pain holding opium tincture for now given "sbo" continue lisinopril called medical consult for uncontrolled hypertension per encouraged oob/ambulation hep sc - dvt ppx will d/w Core Measures/Miscellaneous Venous Thromboembolism VTE Risk Factors: Age > 40 VTE Contraindications: No Contraindications VTE Prophylaxis Ordered Inpt Mech & Pharm VTE Diagnosis: No VTE Type: NONE VTE Confirmed by (Test): NONE Beta Saravanan Is Beta Saravanan a Home Med? No Antibiotics Is Patient on Antibiotics? No
--- NOTE | 2016-08-14 09:17 | Cons- Medical ---
SHELBIE CLEMENTE 08/14/16 0917: General Information and HPI Consulting Request Date of Consult: 08/14/16 Requested By: MAHAD HOLMAN,MANSOOR Waters Reason for Consult: hypertension Source of Information: patient History of Present Illness: Patient is 66-year-old female with past medical history significant for rectal cancer status post radical surgery, chemotherapy therapy and radiation, multiple bowel obstructions in the past and multiple surgeries, hypertension and PE not on any anticoagulation was admitted to [facility] under surgical services on 16 with diagnosis of small bowel obstruction and was managed conservatively. At baseline she is hypertensive and her blood pressure remained stable for first 1-2 days but lately her blood pressure was running high between 148-170/84-100 millimeters of mercury. She was complaining of some headache off and on but denying any headache at current moment. She is also complaining of shortness of breath and explaining that it's hard for her to catch her breath for last 2 days but no hypoxia was noted. She denied any pleuritic chest pain but admit for having palpitations and also hyperventilating. She feels very weak and tired but denies any fever, nausea vomiting, diarrhea or any urinary complaints. She denied any lower extremity swelling or calf tenderness. Allergies/Medications Allergies: Coded Allergies: NO KNOWN ALLERGIES (09/07/15) Home Med List: Ascorbic Acid (Vitamin C) 500 MG TAB 1 TAB PO DAILY SUPPLEMENT (Reported) [BLACK SERNA] 1 CAP PO DAILY SUPPLEMENT (Reported) Cholecalciferol (Vitamin D3) 1,000 UNIT TABLET 1,000 IU PO DAILY VITAMIN D SUPPLEMET (Reported) CRANBERRY FRUIT CONCENTRATE (Cranberry) (Unknown Strength) CAP (Unknown Dose) PO DAILY SUPPLEMENT (Reported) Cyanocobalamin (Vitamin B-12) (Unknown Strength) TAB (Unknown Dose) PO DAILY SUPPLEMENT (Reported) Hydromorphone HCl (Dilaudid) 2 MG TABLET 1 TAB PO Q6H PRN PAIN Lactobacillus Acidophilus (Probiotic Formula Capsule) 1 CAP CAP 1 CAP PO DAILY SUPPLEMENT (Reported) Lisinopril (Prinivil) 5 MG TABLET 1 TAB PO DAILY BP (Reported) Multivitamin, Minerals, and 88 (Hair Vitamins Extra Strength) (Unknown Strength) TAB 1 TAB PO DAILY SUPPLEMENT (Reported) Promethazine Hydrochloride (Phenergan) 25 MG TAB 1 TAB PO Q6H PRN NAUSEA Vitamin E Succinate (Vitamin E) (Unknown Strength) TAB (Unknown Dose) PO DAILY SUPPLEMENT (Reported) Current Medications: Current Medications Sig/Millicent Start time Last Medication Dose Route Stop Time Status Admin Acetaminophen 1,000 MG .STK-MED ONE 08/13 2002 DC IV 08/13 2003 Acetaminophen 1,000 MG Q6P PRN 08/11 0545 08/14 N/A 1 UNIT IV 0621 Heparin Sodium 5,000 UNIT Q8 08/11 0600 08/14 (Porcine) SC 0534 Hydromorphone HCl 2 MG Q6P PRN 08/11 1545 AC 08/14 PO 0109 Ketorolac 30 MG Q8P PRN 08/14 0900 DC 08/14 Tromethamine IV 0923 Ketorolac 30 MG Q8P PRN 08/12 2100 NJ 08/13 Tromethamine IV 08/13 2101 1424 Lisinopril 10 MG DAILY 08/15 1000 AC PO Lisinopril 5 MG ONCE ONE 08/14 1000 DC PO 08/14 1001 Lisinopril 5 MG DAILY 08/11 1000 DC 08/14 PO 0922 Magnesium Sulfate 1 GM Q2H 08/13 0930 NJ 08/13 Dextrose/Water 100 ML IV 08/13 1329 1416 Ondansetron HCl 4 MG Q6-PRN PRN 08/11 0800 08/14 IV 0922 Patient Medication 1 ED .STK-MED ONE 08/13 1408 DC Teaching ED 08/13 1409 Potassium Chloride 20 MEQ Q10H 08/12 0915 NJ 08/13 Dextrose/Sodium 1,000 ML IV 0557 Chloride Trimethobenzamide HCl 200 MG TID PRN 08/11 0800 08/11 IM 0758 Review of Systems Review of Systems Constitutional: Reports: chills, malaise, weakness. EENTM: Denies: blurred vision. Cardiovascular: Reports: palpitations. Denies: chest pain, edema. Respiratory: Reports: short of breath. Denies: cough, orthopnea. GI: Denies: abdominal pain, constipation, diarrhea. Genitourinary: Denies: dysuria, frequency. Musculoskeletal: Reports: back pain, muscle pain. 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 Psychosocial History Who Do You Live With? child Services at Home: None Smoking Status: Former Smoker ETOH Use: denies use Illicit Drug Use: denies illicit drug use Functional Ability ADLs Independent: dressing, eating, toileting, bathing. IADLs Independent: shopping, housework, finances, food prep, telephone, transportation , medication admin. Exam & Diagnostic Data Last 24 Hrs of Vital Signs/I&O Vital Signs Date Time Temp Pulse Resp B/P Pulse O2 O2 Flow FiO2 Ox Delivery Rate 08/14 0922 90 158/98 08/14 0642 98.4 91 18 158/90 97 Room Air 08/13 2349 98.0 99 20 160/100 98 Room Air 08/13 1441 98.1 90 18 98 Room Air 08/13 1432 170/94 Intake & Output 08/14 1600 08/14 0800 08/14 0000 Intake Total 100 500 Output Total 300 400 Balance -200 100 Intake, Oral 100 500 Output, Urine 300 400 Physical Exam General Appearance: awake, anxious, cachetic, lethargic Head: atraumatic Respiratory: normal breath sounds, chest non-tender Cardiovascular: regular rate/rhythm Gastrointestinal: soft, non-tender Last 24 Hrs of Labs/Gilbert: Laboratory Tests 08/14/16 0620: Anion Gap 9, Estimated GFR > 60, BUN/Creatinine Ratio 30.0 H, Magnesium 1.7 Diagnostic Data CXR Results SERVICE DATE: 08/13/16- EXAM TYPE: RAD - XRY-CHEST XRAY, PA AND LATERAL EXAMINATION: XR CHEST CLINICAL INFORMATION: Shortness of breath. COMPARISON: None. TECHNIQUE: PA and lateral views of the chest were obtained. FINDINGS: Hyperinflation of lungs. Lungs are clear. No pulmonary vascular congestion. No infiltrate or pleural effusion. No pneumothorax. Heart size is normal. Cardiac and mediastinal contours are normal. Degenerative change of both shoulders involving the glenohumeral joint with joint space narrowing and spur. There is residual deformity of an old healed fracture of the left proximal humerus. Ossified loose bodies are present in the left and right shoulder joints. Multilevel degenerative change of dorsal spine with disc height narrowing and endplate spurs of the vertebrae. IMPRESSION: No acute abnormality of chest. Assessment/Plan Assessment/Plan Patient is 66 year old female with diagnosis of rectal cancer in 2002 status post radical surgery, chemotherapy and radiation with multiple surgeries in the past and multiple episodes of intestinal obstruction, hypertension and PE not on any anticoagulation was admitted with another episode of small bowel obstruction and found to have elevated blood pressure during her admission and also she is very short of breath and as she is cancer patient in which is hypercoagulable state we will to rule out PE. Recommendations: Problem #1 hypertension -For her elevated blood pressure during admission that could be attributed by NSAIDs. We will increase lisinopril to 10 mg daily for now and avoid NSAIDs. -Please order EKG Problem #2 shortness of breath -Stat CTA chest to rule out PE. -Continue subcutaneous heparin f DVT prophylaxis -Maintain oxygen saturation more than 90% Problem #3 small bowel obstruction Conservative management as per surgical team Thank you for allowing us to participate in patient's care. Please call us at anytime for any issues or concerns Shelbie Clemente PGY 2 Pager [phone] Consult Acknowledgment - Thank you for your consult request. CYDNEY JOY MD 08/14/16 1221: Assessment/Plan Consult Acknowledgment - Thank you for your consult request. 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 Patient managed conservatively. Medical consult obtained for uncontrolled htn. Patient herself was c/o SOb and some dizziness. She said she is not feeling well. Her pain is not controlled. Only IV Dilaudid helps. She claims that she is short of breath all the time. DEnies any CP, no nausea. + flatus. Has been started on regular diet. Vital Signs Date Time Temp Pulse Resp B/P Pulse O2 O2 Flow FiO2 Ox Delivery Rate 08/14 1205 90 148/98 08/14 0922 90 158/98 08/14 0642 98.4 91 18 158/90 97 Room Air 08/13 2349 98.0 99 20 160/100 98 Room Air 08/13 1441 98.1 90 18 98 Room Air 08/13 1432 170/94 on exam; aox3, nad. cv; s1,s2, rrr. resp; clear abd; soft, mildly tender periumblical region, bs+ ext; no edema. 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 Patient managed conservatively. Medical consult obtained for uncontrolled htn. With patient's previous hx of reported PE, malignancy and now c/o sob, it is important to r/o PE. Would recommend getting a chest CTA to rule out PE. Please increase the dose of lisinopril to 10 mg daily. Pain management per surgery. Abdominal pain and SBO management per surgery. Agree with repeating magnesium. DVT px: Heparin subcutaneous. Thank you will follow along with you.
--- NOTE | 2016-08-14 11:34 | RADIOLOGY REPORT ---
EXAMINATION: XR ABDOMEN MULTIPLE VIEWS CLINICAL INDICATION: Abdominal pain and dyspnea. COMPARISON: 08/11/2016 TECHNIQUE: 2 views of the abdomen FINDINGS: Normal bowel gas pattern without dilated loops of bowel. Gas and stool seen throughout the colon. Gas is seen in the rectum. Prominent degenerative changes of the spine. The lung bases are clear. No free air on the upright view. Severe degenerative changes of the hips. IMPRESSION: Nonobstructive bowel gas pattern.
--- NOTE | 2016-08-14 12:28 | CT SCAN REPORT ---
EXAMINATION: CT ANGIOGRAM CHEST WITH AND WITHOUT CONTRAST (CT PULMONARY ANGIOGRAM FOR PE) CLINICAL INFORMATION: Shortness of breath. Evaluate for pulmonary embolism. COMPARISON: Multiple prior examinations including chest x-ray 08/13/2016. TECHNIQUE: Prior to contrast administration, noncontrast localization images were obtained. Subsequently, multidetector volumetric imaging was performed from the thoracic inlet to below the diaphragms following the administration of 90 mL Optiray 350 intravenous contrast. No contrast reaction reported. Sagittal, coronal, and MIP oblique sagittal reformatted images were obtained on the CT workstation, uploaded to PACS, and reviewed. DLP: 251.87 mGy-cm FINDINGS: QUALITY OF STUDY/CONTRAST BOLUS: Satisfactory. CARDIOVASCULAR: Pulmonary Arteries and Branches: Normal, no embolism. Minimal arterial calcification. No aneurysmal dilatation. Heart unremarkable. No pericardial effusion. LUNGS: Minimal scarring or discoid atelectasis in the left lower lobe, unchanged. LYMPH NODES: Normal. THORACIC INLET: Normal. ESOPHAGUS: Normal. SOFT TISSUES AND CHEST WALL: Normal. UPPER ABDOMEN: Stable scattered low-attenuation lesions, the largest in the left lobe, unchanged, favored to reflect simple cysts. SKELETAL: Severe bilateral glenohumeral arthrosis with loose bodies and joint effusions. IMPRESSION: No evidence for pulmonary embolism. Minimal scarring or discoid atelectasis in the left lower lobe. No acute abnormality. Stable low-attenuation liver lesions favored to reflect simple cysts, unchanged. Severe bilateral glenohumeral arthrosis with loose bodies.
[2016-08-14 14:20] VITALS: BP 140/60
[2016-08-14 22:14] VITALS: BP 110/64
[2016-08-15 06:30] VITALS: BP 104/50
--- NOTE | 2016-08-15 07:34 | PN- Medicine Consult ---
RONNIE CLEMENTE 08/15/16 0734: Assessment/Plan Assessment/Plan Assessment: Patient is 66 year old female with diagnosis of rectal cancer in 2002 status post radical surgery, chemotherapy and radiation with multiple surgeries in the past and multiple episodes of intestinal obstruction, hypertension and PE not on any anticoagulation was admitted with another episode of small bowel obstruction and found to have elevated blood pressure during her admission and also she is very short of breath and as she is cancer patient in which is hypercoagulable state PE was ruled out by negative CTA. Plan: -As her blood pressure was on higher side lately her lisinopril was increased from 5 mg daily to 10 mg yesterday but her blood pressure dropped significantly overnight and patient is ready to be discharged today. We will recommend to continue with home dose of 5 mg of lisinopril on discharge and patient would need to follow-up as outpatient with her PCP and will recommend to maintain blood pressure log for antihypertensive adjustments if needed. -Please continue to avoid NSAIDs -As her blood pressure droped significantly today, hold her lisinopril for today and she can restart it from tomorrow 5 mg daily. Subjective Subjective: Patient was seen and examined this morning. She was sitting comfortably in bed without any complaint of shortness of breath and admits that she is feeling better. Blood pressure was on the lower side from 104-110/50-64 mmHg. She denies any chest pressure, headache, dizziness or any urinary or bowel complaints. Review of Systems Constitutional: Denies: fever, malaise. EENTM: Denies: blurred vision, double vision. Cardiovascular: Denies: chest pain, edema, palpitations. Respiratory: Denies: cough, short of breath. Gastrointestinal: Denies: abdominal pain, constipation, diarrhea. Genitourinary: Denies: discharge, dysuria. Musculoskeletal: Reports: muscle pain. Objective Last 24 Hrs of Vital Signs/I&O Vital Signs Date Time Temp Pulse Resp B/P Pulse O2 O2 Flow FiO2 Ox Delivery Rate 08/15 0630 98.6 98 20 104/50 98 Room Air 08/14 2214 98.1 102 22 110/64 92 Room Air 08/14 1420 98.9 97 20 140/60 99 Room Air 08/14 1205 90 148/98 08/14 0922 90 158/98 Intake & Output 08/15 1600 08/15 0800 08/15 0000 Intake Total 600 100 Output Total Balance 600 100 Intake, IV 500 Intake, Oral 100 100 Number 1 1 Bowel Movements Patient 96 lb Weight Physical Exam General Appearance: alert, awake, comfortable Head: atraumatic Neck: supple Cardiovascular: regular rate/rhythm Respiratory: normal breath sounds, chest non-tender Abdomen: soft, non-tender Extremities: normal inspection Current Medications: Current Medications Sig/Millicent Start time Last Medication Dose Route Stop Time Status Admin Acetaminophen 1,000 MG Q6P PRN 08/11 0545 08/15 N/A 1 UNIT IV 0329 Heparin Sodium 5,000 UNIT Q8 08/11 0600 08/15 (Porcine) SC 0549 Hydromorphone HCl 2 MG Q6P PRN 08/11 1545 AC 08/14 PO 1309 Ketorolac 30 MG Q8P PRN 08/14 0900 IA 08/14 Tromethamine IV 0923 Lisinopril 10 MG DAILY 08/15 1000 DC PO Lisinopril 5 MG DAILY 08/15 1000 AC PO Lisinopril 5 MG ONCE ONE 08/14 1000 DC 08/14 PO 08/14 1001 1205 Lisinopril 5 MG DAILY 08/11 1000 DC 08/14 PO 0922 Magnesium Sulfate 1 GM ONCE ONE 08/14 1115 DC 08/14 Dextrose/Water 100 ML IV 08/14 1514 1300 Ondansetron HCl 4 MG .STK-MED ONE 08/14 0912 DC IM 08/14 0913 Ondansetron HCl 4 MG Q6-PRN PRN 08/11 0800 08/14 IV 0922 Patient Medication 1 ED .STK-MED ONE 08/14 1357 DC Teaching ED 08/14 1358 Sodium Chloride 1,000 ML BOLUS ONE 08/15 0615 08/15 IV 08/15 1014 0621 Trimethobenzamide HCl 200 MG TID PRN 08/11 0800 08/11 IM 0758 Results Last 24 Hrs Lab/Gilbert Results: Laboratory Tests 08/15/16 0640: Sodium Pending, Potassium Pending, Chloride Pending, Carbon Dioxide Pending, Anion Gap Pending, BUN Pending, Creatinine Pending, BUN/Creatinine Ratio Pending CYDNEY JOY MD 08/15/16 0946: Attending MD Review Statement Attending Sign Off Attending Cosign Statement: I have: examined this patient, reviewed [facility] EMR data, personally reviewd images, discussd w/resident/PA/HEEL STIFFENER, discussed mgmt plan w/pt, agreed w/resident/ PA/HEEL STIFFENER, amended to note. Other Findings: Patient seen and examined, feeling much better today. Denies any shortness of breath. Bleeding has improved. Blood pressure is running on the low side today. Currently patient denies feeling dizzy. Noted that her Cr was high today. Patient claims that after she eats she has diarrhea and she wants to take some Imodium. Vital Signs Date Time Temp Pulse Resp B/P Pulse O2 O2 Flow FiO2 Ox Delivery Rate 08/15 0857 92/52 08/15 0630 98.6 98 20 104/50 98 Room Air 08/14 2214 98.1 102 22 110/64 92 Room Air 08/14 1420 98.9 97 20 140/60 99 Room Air 08/14 1205 90 148/98 on exam; aox3, nad. cv; s1,s2, rrr. resp; clear abd; soft, nt, bs+ ext; no edema. 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 Patient managed conservatively. Medical consult obtained for uncontrolled htn. Patient has received a CT yesterday rule out PE. Creatinine went up today. She also received high-dose of lisinopril yesterday. Blood pressure is running low today. Question if this is contrast-induced nephropathy or azotemia as BUN is also high. Patient claims that she is having diarrhea after she eats. I would recommend holding the lisinopril altogether today. Gently hydrate her with IV fluids. Recheck a creatinine in the morning. If stable can likely resume lisinopril at 5 mg. If on the other hand creatinine continues to get worse than please call nephrology consult. Please add Imodium per patient's request. DVT Px; Hep sq.
--- NOTE | 2016-08-15 07:44 | PN- General Surgery ---
See Addendum Subjective Subjective: The patient was seen this morning. She reports that she is eager to go home today and had no complaints this morning aside from feeling slightly dizzy earlier. She is tolerating a regular diet without nausea and has had 2 loose bowel movements yesterday evening. She denies any current chest pain, difficulty breathing, or palpitations. Objective Vital Signs and I&Os Vital Signs Date Time Temp Pulse Resp B/P Pulse O2 O2 Flow FiO2 Ox Delivery Rate 08/15 0630 98.6 98 20 104/50 98 Room Air 08/14 2214 98.1 102 22 110/64 92 Room Air 08/14 1420 98.9 97 20 140/60 99 Room Air 08/14 1205 90 148/98 08/14 0922 90 158/98 Intake & Output 08/15 0800 08/15 0000 08/14 1600 08/14 0800 08/14 0000 08/13 1600 Intake Total 100 720 426 802 5712 Output Total 300 400 Balance 100 720 -958 427 3013 Intake, IV 800 Intake, Oral 100 720 100 500 600 Number 1 Bowel Movements Output, Urine 300 400 Patient 96 lb 96 lb Weight Physical Exam: Gen.: Alert and in no obvious distress Skin: Warm and dry Abdomen: Soft, nontender, nondistended, bowel sounds positive. Extremities: Bilateral lower extremities are warm without calf tenderness or significant edema. Assessment/Plan Assessment/Plan Assessment: 66-year-old female with a resolved questionable partial small bowel obstruction. The patient's tolerating a regular diet without nausea and having regular bowel movements. She continues to have a myriad of complaints which all workup have been negative. Plan: Limit narcotics and NSAIDs Will reduce lisinopril back to 5 mg by mouth daily due to patient's lower blood pressure and complaints of dizziness Continue regular diet GI and DVT prophylaxis Discharge home Core Measures/Miscellaneous Venous Thromboembolism VTE Risk Factors: Acute medical illness VTE Contraindications: No Contraindications VTE Prophylaxis Ordered Inpt Mech & Pharm VTE Diagnosis: No VTE Type: NONE VTE Confirmed by (Test): NONE Beta Saravanan Is Beta Saravanan a Home Med? No Antibiotics Is Patient on Antibiotics? No
--- NOTE | 2016-08-15 08:57 | NUR ---
PT'S BP 92/52 AT THIS TIME. PATIENT C/O OF "LITTLE DIZZINESS" WITH CHANGE OF POSITIONS FROM LYING TO STANDING. DR. RONNIE CHEW NOTIFIED. PER MD, TO HOLD AM DOSE OF LISIOPRIL AND MONITOR PATIENT. WILL CONT TO MONITOR.
[2016-08-15 13:35] VITALS: BP 92/60
--- NOTE | 2016-08-15 15:10 | NUR ---
PT INSISTS ON HAVING IMMODIUM ON BOARD FOR DIARRHEA. SURGICAL PA HARDEEP NOTIFIED. PER HARDEEP, DR. TOBIN DOES NOT WANT THE PATIENT TO HAVE IMMODIUM IT CAN CAUSE HER TO BE CONSTIPATED. HARDEEP ALREADY SPOKE TO THE PATIENT THIS AM REGARDING THIS MATTER. PATIENT VERBALIZES UNDERSTANDING BUT DOES NOT AGREE THAT SHE SHOULD NOT HAVE IT SHE TAKES IT AT HOME.
[2016-08-15 22:19] VITALS: BP 110/62
[2016-08-16 07:06] VITALS: BP 124/64
--- NOTE | 2016-08-16 10:09 | Surgical Discharge Summary ---
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 Psychosocial History Who Do You Live With? Son Services at Home: None What is Your Primary Language? Yi ETOH Use: denies use Review of Systems: not performed at d/c Hospital Course Course Attending Physician: MAHAD HOLMAN,[facility] [place]. Primary Care Physician: JALEN HOLMAN,[facility] Course: Admitted for bowel rest for presumed medication induced slow transit. No obvious bowel obstruction. Her symptoms slowly resolved but continued to request narcotic pain medications. At time of proposed d/c, she c/o new onset dyspnea and developed worsening of chronic htn. Medical consultation was obtained. increase of antihypertensives was initiated and CTA of chest performed due to concerns for PE. Test was negative. Her Cr elevated the next day, likely due to dehydration in the setting of IV contrast. She was hydrated and it returned to normal. Allergies: Coded Allergies: NO KNOWN ALLERGIES (09/07/15) Disposition Summary Disposition Principal Diagnosis: Abdominal pain Additional Diagnosis: none Discharge Disposition: home or self care Discharge Instructions General Discharge Information Code Status: Full Code Patient's Diet: ad bernarda Patient's Activity: ad bernarda Follow-Up Instructions/Appts: primary care Medications at Discharge Discharge Medications: Continue taking these medications: Lisinopril (Prinivil) 5 MG TABLET 1 Tablet ORAL DAILY Qty = 90 Comments: PER PT NOT GIVEN IN HOSPITAL Ascorbic Acid (Vitamin C) 500 MG TAB 1 Tablet ORAL DAILY Comments: PER PT NOT GIVEN IN HOSPITAL Cholecalciferol (Vitamin D3) 1,000 UNIT TABLET 1,000 International Unit ORAL DAILY Comments: PER PT NOT GIVEN IN HOSPITAL Vitamin E Succinate (Vitamin E) (Unknown Strength) TAB Unknown Dose ORAL DAILY Comments: PER PT NOT GIVEN IN HOSPITAL Lactobacillus Acidophilus (Probiotic Formula Capsule) 1 CAP CAP 1 Capsule ORAL DAILY Comments: PER PT NOT GIVEN IN HOSPITAL Cyanocobalamin (Vitamin B-12) (Unknown Strength) TAB Unknown Dose ORAL DAILY Comments: PER PT NOT GIVEN IN HOSPITAL Multivitamin, Minerals, and 88 (Hair Vitamins Extra Strength) (Unknown Strength) TAB 1 Tablet ORAL DAILY Comments: PER PT NOT GIVEN IN HOSPITAL CRANBERRY FRUIT CONCENTRATE (Cranberry) (Unknown Strength) CAP Unknown Dose ORAL DAILY Comments: PER PT NOT GIVEN IN HOSPITAL [BLACK SERNA] 1 Capsule ORAL DAILY Comments: PER PT NOT GIVEN IN HOSPITAL Promethazine Hydrochloride (Phenergan) 25 MG TAB 1 Tablet ORAL Q6H as needed for NAUSEA Qty = 30 Comments: NOT GIVEN IN HOSPITAL Hydromorphone HCl (Dilaudid) 2 MG TABLET 1 Tablet ORAL Q6H as needed for PAIN Qty = 15 Comments: IV DILAUDID GIVEN 12/16 AT 1200 PM
== END 2016-08-16 14:00 | DRG 389 ==
LOC: ENRESERVDT → ENRESERVTM → ERH 02:08 → ERHI 04:59 → DELPENDDIS 04:59 → 2NA 04:59 → ENPENDDIS 04:59 → EDBEDREQSVC 08:30 → 2NA 11:13 → EDPENDDISTM 08-14 15:45 → EDPENDDISDT 08-14 15:45 → 2NA 08-14 15:45 → ENPENDDIS 08-14 15:45 → 2NA 08-14 15:54
PROVIDERS: Emergency Medicine; Nurse Practitioner; ADMIT Surgery
DX: K56.60 Unspecified intestinal obstruction (principal); K52.0 Gastroenteritis and colitis due to radiation; N14.4 Toxic nephropathy, not elsewhere classified; I10 Essential (primary) hypertension; Z87.891 Personal history of nicotine dependence; Z85.038 Personal history of other malignant neoplasm of large intestine; T50.8X5A Adverse effect of diagnostic agents, initial encounter; T40.605A Adverse effect of unspecified narcotics, initial encounter; R94.4 Abnormal results of kidney function studies
CPT/HCPCS: 2NASP; 36415; 74020; 74177; 81003; 82436; 93005; 93010; 96374; 96375; 96376; J0131; J1644; J1885; J2405; J3250; J7040; J7042; J7060

== ENCOUNTER 2016-12-08 12:58 | Inpatient (IN) | payer OTHER ==
[~2016-12-08] VITALS: Ht 160 cm; Wt 41.3 kg
--- NOTE | 2016-12-08 13:11 | NUR ---
66 Y/O FEMALE C/O DIFFUSE ABDOMINAL PAIN, N/V/D SINCE THURSDAY. HX BOWEL OBSTRUCTIONS, BOWEL SURGERIES AND A REVERSED ILEOSTOMY. STATES SYMPTOMS REMIND HER OF THE OBSTRUCTIONS IN THE PAST. REPORTS DIFFUSE ABDOMINAL PAIN AND N/V. STATES SHE HAD A BACTERIAL INFECTION AND WAS ON "HEAVY DUTY" ANTIBIOTICS WHICH CAUSED STOMACH "BURNING". CURRENTLY ON OPIUM FOR CHRONIC DIARRHEA. AFEBRILE.
--- NOTE | 2016-12-08 13:50 | NUR ---
RECIEVED TO ROOM 21. SEEN BY NERI MC. PT WITH N/V/D SINCE THURSDAY. SIMILAR SYMPTOMS TO WHEN SHE HAD SBO LAST YEAR. UNABLE TO KEEP ANY PO INTAKE DOWN.
--- NOTE | 2016-12-08 14:00 | ED GI/GU/ABDOMINAL COMPLAINT ---
History of Present Illness General Chief Complaint: Abdominal Pain/Flank Pain Stated Complaint: +NV, CHILLS, ABD PAIN Source: patient, family, old records Exam Limitations: no limitations Vital Signs & Intake/Output Vital Signs & Intake/Output Vital Signs Date Time Temp Pulse Resp B/P B/P Pulse O2 O2 Flow FiO2 Mean Ox Delivery Rate 12/09 1008 70 100/58 12/09 0817 98.5 70 18 100/58 97 Room Air 12/09 0800 Room Air 12/08 2330 97.7 84 18 138/78 97 Room Air 12/08 1840 97.9 70 20 130/80 98 Room Air 12/08 1805 125/72 12/08 1638 96.9 73 18 117/65 96 Room Air 12/08 1419 Room Air 12/08 1306 97.8 109 14 131/91 96 Room Air ED Intake and Output 12/09 0000 12/08 1200 Intake Total 1420 Output Total Balance 1420 Intake, IV 1200 Intake, Oral 220 Number 1 Bowel Movements Patient 91 lb Weight Weight Reported by Patient Measurement Method Allergies Coded Allergies: NO KNOWN ALLERGIES (09/07/15) Reconcile Medications Ascorbate Calcium (Vitamin C) 500 MG TABLET 1 TAB PO DAILY VITAMIN SUPPORT ( Reported) Bacillus Coagulans/Inulin (Probiotic Formula Capsule) 1 BILLION CELL-250 MG CAPSULE 1 CAP PO DAILY GI (Reported) [BLACK SERNA] 1 CAP PO DAILY SUPPLEMENT (Reported) Calcium Carbonate/Vitamin D3 (Os-Cachorro 500+D3 Caplet) 500 MG-200 TABLET 1 TAB PO DAILY VITAMIN SUPPORT (Reported) Cholecalciferol (Vitamin D3) 1,000 UNIT TABLET 1 TAB PO DAILY VITAMIN SUPPORT (Reported) Cranberry Extract (Cranberry) (Unknown Strength) CAPSULE (Unknown Dose) PO DAILY SUPPLEMENT (Reported) Cyanocobalamin (Vitamin B-12) (Unknown Strength) TABLET (Unknown Dose) PO DAILY VITAMIN SUPPORT (Reported) Diphenoxylate HCl/Atropine (Lomotil 2.5-0.025 MG Tablet) 2.5 MG-0.025 MG TABLET 4 TAB PO BID DIARRHEA (Reported) Ferrous Sulfate 325 MG (65 MG IRON) TABLET 1 TAB PO DAILY SUPPLEMENT ( Reported) Lisinopril 5 MG TABLET 1 TAB PO DAILY HEART (Reported) Opium Tincture 10 MG/ML (MORPHINE) TINCTURE 0.8 ML PO 4XDP PRN UNKNOWN ( Reported) Vitamin E (Unknown Strength) CAPSULE (Unknown Dose) PO DAILY VITAMIN SUPPORT (Reported) Zolpidem Tartrate 5 MG TABLET 1 TAB PO QPM SLEEP (Reported) Triage Note: 66 Y/O FEMALE C/O DIFFUSE ABDOMINAL PAIN, N/V/D SINCE THURSDAY. HX BOWEL OBSTRUCTIONS, BOWEL SURGERIES AND A REVERSED ILEOSTOMY. STATES SYMPTOMS REMIND HER OF THE OBSTRUCTIONS IN THE PAST. REPORTS DIFFUSE ABDOMINAL PAIN AND N/V. STATES SHE HAD A BACTERIAL INFECTION AND WAS ON "HEAVY DUTY" ANTIBIOTICS WHICH CAUSED STOMACH "BURNING". CURRENTLY ON OPIUM FOR CHRONIC DIARRHEA. AFEBRILE. Triage Nurses Notes Reviewed? yes ? n Is pt currently ? No Onset: Abrupt Duration: day(s): (3), constant Timing: recent history Quality/Severity: aching, cramping, moderate, sharpness Severity Numbers: 10 Location: generalized abdomen Radiation: no radiation Prior Abdominal Problems: similar symptoms Modifying Factors: Worsens With: eating. Associated Symptoms: nausea/vomiting HPI: 66 year old female wtih history of chronic diarrhea, malabsorption,intestinal obstruction, stage 3 rectal Ca primary resection & diverting ileostomy 2004, radiation proctitis, diverticulosis of colon anemia presents to ER complaining of generalized diffuse abdominal pain for the past 3 days associated with nausea and vomiting. The patient states she recently finished a course of Flagyl last week as prescribed by her artificial breeding technician Dr. Dueñas. Patient states these symptoms feel similar to her obstructions in the past. She denies diarrhea since the symptoms began her last bowel movement was prior to the episodes of vomiting. No hematemesis. She takes opium for her pain without improvement no fever no chills no urinary complaints chest pain shortness of breath (NERI GU) Past History Travel History Traveled to [place] past 21 day No Medical History Any Pertinent Medical History? 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, OOPHORECTOMY History of MRSA: No History of VRE: No History of CDIFF: No Influenza Vaccine: 04/27/16 Surgical History Surgical History: colon resection (2001), hysterectomy, right subclavian Port-A- C enucleation right eye bunions ileostomy reversal 2003 laparotomy, lysis of adhesions, revision of anastomosis, ventral hernia repair 01/11/15 ILEECTOMY, LYSIS OF ADHESION Psychosocial History Who do you live with Son Services at Home None What is your primary language Latvian Tobacco Use: Never used Family History Family History, If Any: MOTHER FH: CAD (coronary artery disease) FH: ovarian cancer FATHER FH: CAD (coronary artery disease) FATHER (CAD s/p bipass age 69). Hx Contributory? No (NERI GU) Review of Systems Review of Systems Constitutional: Reports: see HPI. All Other Systems: Reviewed and Negative Comments Review of systems: See HPI, All other systems negative. Constitutional, no chills no fever, no malaise HEENT: No visual changes no sore throat no congestion, no ear pain Cardiovascular: No chest pain , no palpitation , no orthopnea Skin: no rashes, no change in skin Respiratory: No dyspnea no cough no sputum no hemoptysis GI: nausea vomiting, diarrhea : No dysuria No hematuria, no frequency, Muscle skeletal: No joint pain,, no back pain, no neck pain, Neurologic: no headache Psych: No stress Heme/endocrine: No bruising no bleeding Immunology: No lymphadenopathy (NERI GU) Physical Exam Physical Exam General Appearance: well developed/nourished, no apparent distress, alert, comfortable Gastrointestinal: soft Comments: Well-developed well-nourished person in no acute distress HEENT: Normal EENT exam; PERRL, EOMI,. HEAD is atraumatic. moist mucous membranes. Neck: Supple, no lymphadenopathy, normal range of motion Back: Nontender, no CVA tenderness. Full range of motion Cardiovascular: Regular rate and rhythms no murmurs rubs Respiratory: No respiratory distress. Patient speaking in full complete sentences. Breath sounds clear to auscultation bilaterally: NO W/R/R Abdomen: Soft, nontender nondistended, no appreciable organomegaly. Normal bowel sounds. No rebound/guarding Extremity: No edema, full range of motion of extremities Neuro: Alert oriented x3, motor sensory normal, There were no obvious focal neurologic abnormalities. Skin: No appreciable rash on exposed skin, skin is warm and dry. Psych: Mood and affect is normal, memory and judgment is normal. Core Measures ACS in differential dx? No Severe Sepsis Present: No Septic Shock Present: No (BRIANNA ALBERTS,NERI) Progress Differential Diagnosis: biliary colic, colon cancer, diverticulitis, gastritis, hepatitis, hernia, ischemic bowel, inflamm bowel dis, perforated viscous, SBO Plan of Care: Orders Procedure Date/time Status Full Liquid Diet 12/09 L Active Nothing by Mouth 12/09 B Complete Change service to 12/09 1017 Active CBC WITHOUT DIFFERENTIAL 12/09 0600 Complete BASIC ELECTROLYTES PLUS BUN&CR 12/09 0600 Complete Full Liquid Diet 12/08 D Complete POTASSIUM 12/08 2311 Complete POTASSIUM 12/08 2000 Complete Teach/Educate 12/08 1844 Active Pain Treatment and Response 12/08 1844 Active Nutritional Intake, Monitor 12/08 1844 Active Isolation 12/08 1844 Active Patient Care Conference 12/08 1844 Active Activity/Ambulation 12/08 1844 Active LACTIC ACID 12/08 1659 Complete Admit to inpatient 12/08 1622 Active Vital Signs 12/08 1622 Active Code Status 12/08 1622 Active Pathway - chart 12/08 1620 Active House Staff 12/08 1620 Active Code Status 12/08 1620 Complete Patient Data 12/08 1600 Active EKG 12/08 1519 Active Intake & Output 12/08 1419 Active MAGNESIUM 12/08 1415 Complete CULTURE,STOOL 12/08 1359 Active C.DIFFICILE 12/08 1359 Active LIPASE 12/08 1359 Complete LACTIC ACID 12/08 1359 Complete COMPREHENSIVE METABOLIC PANEL 12/08 1359 Complete CBC WITHOUT DIFFERENTIAL 12/08 1359 Complete AMYLASE 12/08 1359 Complete Lab Add-on Test 12/08 UNK Active VTE Mechanical Prophylaxis 12/08 UNK Active Telemetry/Supermarket Manager 12/08 UNK Complete Current Medications Sig/Millicent Start time Last Medication Dose Stop Time Status Admin Ascorbic Acid 500 MG DAILY 12/09 1000 AC 12/09 (Vitamin C) 1008 Cholecalciferol 1,000 IU DAILY 12/09 1000 AC 12/09 (Vitamin D) 1008 Lisinopril 5 MG DAILY 12/09 1000 AC 12/09 (Prinivil) 1008 Potassium Chloride 40 MEQ ONCE ONE 12/09 0845 CAN (Klor) 12/09 0846 Zolpidem Tartrate 5 MG QPM 12/08 2200 AC 12/08 (Ambien) 2258 Potassium Chloride 20 MEQ Q13H 12/08 1800 AC 12/08 (KCl 20MEQ in D5W 1904 2NS 1000ML) Dextrose/Sodium 1,000 ML Chloride (D5W-1/2 Normal Saline 1000ML) Enoxaparin Sodium 40 MG DAILY 12/08 1707 AC 12/09 (Lovenox) 1011 Acetaminophen 650 MG Q6P PRN 12/08 1630 AC (Tylenol) Laboratory Tests 12/09/16 0626: Anion Gap 6, Estimated GFR > 60, BUN/Creatinine Ratio 38.0 H, CBC w Diff NO MAN DIFF REQ, RBC 3.79 L, MCV 83.1, MCH 27.3, RDW 17.7 H, MPV 8.7, Gran % 63.7, Lymphocytes % 24.4, Monocytes % 10.3 H, Eosinophils % 0.9, Basophils % 0.7, Absolute Granulocytes 5.2, Absolute Lymphocytes 2.0, Absolute Monocytes 0.9 H, Absolute Eosinophils 0.1, Absolute Basophils 0.1, PUBS MCHC 32.8 L 12/08/16 2320: 12/08/16 1723: 12/08/16 1723: Lactic Acid 1.0 12/08/16 1415: Anion Gap 12, Estimated GFR > 60, BUN/Creatinine Ratio 44.0 H, Glucose 97, Lactic Acid 1.3, Calcium 9.5, Magnesium 1.7, Total Bilirubin 0.9, AST 20, ALT 35 , Alkaline Phosphatase 112, Total Protein 6.3, Albumin 3.8, Globulin 2.5, Albumin/Globulin Ratio 1.5, Amylase 71, Lipase 915 H, CBC w Diff NO MAN DIFF REQ, RBC 4.93, MCV 81.9, MCH 26.9 L, RDW 17.8 H, MPV 7.9, Gran % 74.2, Lymphocytes % 14.5 L, Monocytes % 10.5 H, Eosinophils % 0.4, Basophils % 0.4, Absolute Granulocytes 6.8 H, Absolute Lymphocytes 1.3, Absolute Monocytes 1.0 H, Absolute Eosinophils 0, Absolute Basophils 0, PUBS MCHC 32.8 L Microbiology 12/08 1359 STOOL: Clostridium difficile Toxin A & B - COLB 12/08 135 STOOL: Stool Culture - COLB Labs ordered old records reviewed CAT scan ordered case discussed with Dr. lopez who EVAL the patient agrees with plan. Discussed the patient at length all of her lab results and CAT scan findings she 's had no episodes of vomiting here pain is improved CASE D/W DR WATTS WILL ADMIT (BRIANNA ALBERTS,NERI) Diagnostic Imaging: Viewed by Me: CT Scan. Discussed w/RAD: CT Scan. Radiology Impression: PATIENT: DILIP BUCHANAN PRESENT AGE: 66 PATIENT ACCOUNT NO: [id number] : 49 LOCATION: [facility] ORDERING PHYSICIAN: NERI ALBERTS SERVICE DATE: 12/08/165228 EXAM TYPE: CAT - CT ABD & PELVIS W IV CONTRAST EXAMINATION: CT ABDOMEN AND PELVIS WITH CONTRAST CLINICAL INFORMATION: Nausea and vomiting. History of rectal cancer with frequent small bowel obstructions. COMPARISON: 08/11/2016 TECHNIQUE: Multidetector volumetric imaging was performed of the abdomen and pelvis before and after the IV administration of 94 mL of Optiray 320 intravenous contrast. Sagittal and coronal reformatted images were obtained on the technologist's workstation. DLP: 237 mGy-cm FINDINGS: LUNG BASES: Minimal scarring/atelectasis is seen in the right middle lobe. The visualized cardiac structures are unremarkable. LIVER, GALLBLADDER, AND BILIARY TREE: The liver is normal in size, shape, and attenuation. Stable hypoattenuating lesions in the liver, the largest is seen in segment 3 measuring 2.4 cm. These are unchanged. No biliary ductal dilatation. The gallbladder is unremarkable with no evidence of radiopaque gallstones, gallbladder wall thickening, or obvious pericholecystic inflammatory changes. PANCREAS: Mildly atrophic appearance of the pancreas with no focal abnormality seen. SPLEEN: Unremarkable. ADRENAL GLANDS: Unremarkable. KIDNEYS AND URETERS: The kidneys are normal in size, shape, and attenuation. No hydronephrosis, hydroureter, or calculi seen. No perinephric stranding. BLADDER: Unremarkable. GASTROINTESTINAL TRACT: The stomach is unremarkable. The small bowel is nondilated. No evidence of obstruction. Anastomotic suture lines are seen in the right lower quadrant and in the region of the rectum. Gas and stool is seen throughout the colon. Overall paucity of intra-abdominal fat limits evaluation of the bowel. No definite acute inflammatory changes are seen. Similar appearance of presacral edema. ABDOMINAL WALL: No significant hernia is appreciated. LYMPH NODES: Normal. VASCULAR: Unremarkable. PELVIC VISCERA: The uterus is not seen. No adnexal mass. OSSEOUS STRUCTURES: No acute or suspicious osseous abnormality. Grade 1 anterolisthesis of L4 on L5 and L5 on S1. Multilevel disc space narrowing and facet arthropathy. Severe degenerative changes of the left hip with loss of the joint space and prominent cyst formation. Moderate to severe degenerative changes at the right hip. These are similar to prior. There is likely a small left hip joint effusion. IMPRESSION: 1. No evidence of bowel obstruction. No dilated loops of bowel. No definite acute inflammatory changes, although lack of intra-abdominal fat limits that evaluation. 2. 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 These findings are unchanged. DICTATED BY: HARI KELLER MD DATE/TIME DICTATED:12/08/161524 CARPET SEWING MACHINE OPERATOR:AGA DATE/TIME TRANSCRIBED:12/08/161524 CONFIDENTIAL, DO NOT COPY WITHOUT APPROPRIATE AUTHORIZATION. <Electronically signed in Other Vendor System> SIGNED BY: HARI KELLER MD 12/08/16 1534 Initial ED EKG: normal intervals, normal p-waves, normal QRS complex, normal sinus rhythm, NSR Prior EKG: unchanged (NERI GU) Departure Departure Time of Disposition: 1547 Disposition: STILL A PATIENT Condition: Stable Clinical Impression Primary Impression: Hypokalemia Referrals: KENNY RAO MD (PCP/Family) Departure Forms: Customer Survey General Discharge Information Admission Note Spoke With: BINH WATTS M.D Documentation of Exam: Documentation of any treatments & extenuating circumstances including Concerns Regarding Discharge (functional status, medication knowledge or non-compliance, living conditions, etc.) that warrant an admission rather than observation: trend labs, electrolyte replacement, iv fluids, bowel rest, premature discharge would be medically harmful, iv pain control, gi consult, trend labs and cultures (NERI GU) PA/CHILD SUPPORT CASE OFFICER Co-Sign Statement Statement: ED Attending supervision documentation- [X] I saw and evaluated the patient. I have also reviewed all the pertinent lab results and diagnostic results. I agree with the findings and the plan of care as documented in the PA's/CHILD SUPPORT CASE OFFICER's documentation. [] I have reviewed the ED Record and agree with the PA's/CHILD SUPPORT CASE OFFICER's documentation. [] Additions or exceptions (if any) to the PAs/CHILD SUPPORT CASE OFFICER's note and plan are summarized below: [] (SIOBHAN LOPEZ DO)
--- NOTE | 2016-12-08 14:18 | NUR ---
IV STARTED. IVF BOLUS, DILAUDID AND ZOFRAN GIVEN. LABS DRAWN.
[2016-12-08 14:28] LABS: ABSOLUTE BASOPHIL COUNT 0 /CUMM (0.0-0.2); ABSOLUTE EOSINOPHIL COUNT 0 /CUMM (0.0-0.7); ABSOLUTE GRANULOCYTE CT 6.8 /CUMM (1.4-6.5); ABSOLUTE LYMPH COUNT 1.3 /CUMM (1.2-3.4); BASOPHIL % 0.4 % (0.0-2.0); EOSINOPHIL % 0.4 % (0-5); GRANULOCYTE % 74.2 % (42.2-75.2); HEMATOCRIT 40.3 % (37-47); MEAN CORPUSCULAR HGB 26.9 PG (27.0-31.0); MEAN CORPUSCULAR HGB CONC 32.8 G/DL (33.0-37.0); MEAN CORPUSCULAR VOLUME 81.9 FL (81.0-99.0); MEAN PLATELET VOLUME 7.9 FL (7.4-10.4); PLATELET COUNT 449 /CUMM (130-400); RBC DISTRIBUTION WIDTH 17.8 % (11.5-14.5); RED BLOOD CELL CT 4.93 /CUMM (4.20-5.40); WHITE BLOOD CELL COUNT 9.2 /CUMM (4.8-10.8)
--- NOTE | 2016-12-08 15:05 | NUR ---
CRITICAL TEST RESULTS [id number] DILIP BUCHANAN 66 F TESTS AND RESULTS: K+ 2.7 Results received and read back by: IVETTE SNYDER Results received date and time: 12/08/16 1506 The following provider was notified of the results, and read the results back: ARISTEO REED Notified date and time: 12/08/16 at 1506
[2016-12-08] MEDS ORDERED: OPIUM TINC10 MG/1 ML PO (15:21)
[2016-12-08] MEDS ORDERED: LOMOTIL 2.5-0.1 EACH PO (15:22)
[2016-12-08] MEDS ORDERED: LISINOPRIL5 M1 PO (15:22)
[2016-12-08] MEDS ORDERED: ZOLPIDEM TARTRAT5 M1 PO (15:23)
[2016-12-08] MEDS ORDERED: FERROUS SULFAT325 M3 PO (15:24)
[2016-12-08] MEDS ORDERED: OS-CAL 500+D31 EAC1 PO (15:24)
--- NOTE | 2016-12-08 15:34 | CT SCAN REPORT ---
EXAMINATION: CT ABDOMEN AND PELVIS WITH CONTRAST CLINICAL INFORMATION: Nausea and vomiting. History of rectal cancer with frequent small bowel obstructions. COMPARISON: 08/11/2016 TECHNIQUE: Multidetector volumetric imaging was performed of the abdomen and pelvis before and after the IV administration of 94 mL of Optiray 320 intravenous contrast. Sagittal and coronal reformatted images were obtained on the technologist's workstation. DLP: 237 mGy-cm FINDINGS: LUNG BASES: Minimal scarring/atelectasis is seen in the right middle lobe. The visualized cardiac structures are unremarkable. LIVER, GALLBLADDER, AND BILIARY TREE: The liver is normal in size, shape, and attenuation. Stable hypoattenuating lesions in the liver, the largest is seen in segment 3 measuring 2.4 cm. These are unchanged. No biliary ductal dilatation. The gallbladder is unremarkable with no evidence of radiopaque gallstones, gallbladder wall thickening, or obvious pericholecystic inflammatory changes. PANCREAS: Mildly atrophic appearance of the pancreas with no focal abnormality seen. SPLEEN: Unremarkable. ADRENAL GLANDS: Unremarkable. KIDNEYS AND URETERS: The kidneys are normal in size, shape, and attenuation. No hydronephrosis, hydroureter, or calculi seen. No perinephric stranding. BLADDER: Unremarkable. GASTROINTESTINAL TRACT: The stomach is unremarkable. The small bowel is nondilated. No evidence of obstruction. Anastomotic suture lines are seen in the right lower quadrant and in the region of the rectum. Gas and stool is seen throughout the colon. Overall paucity of intra-abdominal fat limits evaluation of the bowel. No definite acute inflammatory changes are seen. Similar appearance of presacral edema. ABDOMINAL WALL: No significant hernia is appreciated. LYMPH NODES: Normal. VASCULAR: Unremarkable. PELVIC VISCERA: The uterus is not seen. No adnexal mass. OSSEOUS STRUCTURES: No acute or suspicious osseous abnormality. Grade 1 anterolisthesis of L4 on L5 and L5 on S1. Multilevel disc space narrowing and facet arthropathy. Severe degenerative changes of the left hip with loss of the joint space and prominent cyst formation. Moderate to severe degenerative changes at the right hip. These are similar to prior. There is likely a small left hip joint effusion. IMPRESSION: 1. No evidence of bowel obstruction. No dilated loops of bowel. No definite acute inflammatory changes, although lack of intra-abdominal fat limits that evaluation. 2. 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 These findings are unchanged.
--- NOTE | 2016-12-08 16:13 | History & Physical ---
MARCELL RAINEY MD 12/08/16 8142: General Information and HPI MD Statement: I have seen and personally examined DILIP BUCHANAN and documented this H& P. The patient is a 66 year old F who presented with a patient stated chief complaint of [persistent nausea and vomiting]. Source of Information: patient History of Present Illness: This is a 66 y/Of with PMH rectal cancer stage 3 ,s/p ileostomy, chemoradaitiontherapy in 2002. She was diagnosed with stage III rectal cancer in 2001, for which she underwent a low anterior resection with diverting stoma. She has adjuvant chemoradiation, and her ileostomy was closed. 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 In 2014, she had a small bowel resection and ventral hernia repair. She continues to have bowel obstructions since then. The patient is brought to the emergency department today by her son as the patient has been persistently vomiting since the last 2 days. The patient vomited started on Thursday evening and since then she has nothing solid to eat and has been vomiting clear liquid. She felt weak and lethargic. She also had persistent abdominal pain but has been passing gas. No fever, chills shakes. The patient also had difficult and incomplete colonoscopy performed in [place] [address] Lindsay was not completed due to strictures and radiation proctitis. She also completed a 14 days therapy for Flagyl which she states is most likely secondary to Allergies/Medications Allergies: Coded Allergies: NO KNOWN ALLERGIES (09/07/15) Home Med list Ascorbate Calcium (Vitamin C) 500 MG TABLET 1 TAB PO DAILY VITAMIN SUPPORT ( Reported) Bacillus Coagulans/Inulin (Probiotic Formula Capsule) 1 BILLION CELL-250 MG CAPSULE 1 CAP PO DAILY GI (Reported) [BLACK SERNA] 1 CAP PO DAILY SUPPLEMENT (Reported) Calcium Carbonate/Vitamin D3 (Os-Cachorro 500+D3 Caplet) 500 MG-200 TABLET 1 TAB PO DAILY VITAMIN SUPPORT (Reported) Cholecalciferol (Vitamin D3) 1,000 UNIT TABLET 1 TAB PO DAILY VITAMIN SUPPORT (Reported) Cranberry Extract (Cranberry) (Unknown Strength) CAPSULE (Unknown Dose) PO DAILY SUPPLEMENT (Reported) Cyanocobalamin (Vitamin B-12) (Unknown Strength) TABLET (Unknown Dose) PO DAILY VITAMIN SUPPORT (Reported) Diphenoxylate HCl/Atropine (Lomotil 2.5-0.025 MG Tablet) 2.5 MG-0.025 MG TABLET 4 TAB PO BID DIARRHEA (Reported) Ferrous Sulfate 325 MG (65 MG IRON) TABLET 1 TAB PO DAILY SUPPLEMENT ( Reported) Lisinopril 5 MG TABLET 1 TAB PO DAILY HEART (Reported) Opium Tincture 10 MG/ML (MORPHINE) TINCTURE 0.8 ML PO 4XDP PRN UNKNOWN ( Reported) Vitamin E (Unknown Strength) CAPSULE (Unknown Dose) PO DAILY VITAMIN SUPPORT (Reported) Zolpidem Tartrate 5 MG TABLET 1 TAB PO QPM SLEEP (Reported) Past History Travel History Traveled to [place] past 21 day No Medical History Neurological: NONE EENT: LT.EYE ENUCLEATION Cardiovascular: hypertension Respiratory: pulmonary embolism (- and DVT s/p completion of AC) Gastrointestinal: umbilical hernia, SMALL BOWEL OBSTRUCTIONS Hepatic: NONE Renal: NONE Musculoskeletal: osteoarthritis, BUNIONS Psychiatric: NONE Endocrine: NONE Blood Disorders: NONE Cancer(s): colon/rectal cancer (s/p chemo, xrt, resection), 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 BROTHER Psychosocial History Who Do You Live With? child Services at Home: None Functional Ability ADLs Independent: dressing, eating, toileting, bathing. IADLs Independent: shopping, housework, finances, food prep, telephone, transportation , medication admin. Review of Systems Review of Systems Constitutional: Reports: see HPI. EENTM: Reports: see HPI. Cardiovascular: Denies: chest pain, edema, orthopena. Respiratory: Denies: cough, hemoptysis, orthopnea, short of breath. GI: Reports: abdominal pain, nausea, vomiting. Denies: diarrhea. Genitourinary: Denies: see HPI, discharge, frequency. Musculoskeletal: Denies: back pain, joint pain, joint swelling, muscle pain. Exam & Diagnostic Data Last 24 Hrs of Vital Signs/I&O Vital Signs Date Time Temp Pulse Resp B/P B/P Pulse O2 O2 Flow FiO2 Mean Ox Delivery Rate 12/08 1638 96.9 73 18 117/65 96 Room Air 12/08 1419 Room Air 12/08 1306 97.8 109 14 131/91 96 Room Air Intake & Output 12/08 1600 12/08 0800 12/08 0000 Intake Total 1000 Output Total Balance 1000 Intake, IV 1000 Patient 91 lb Weight Weight Reported by Patient Measurement Method Physical Exam General Appearance Alert, Oriented X3, Cooperative Skin No Rashes, No Breakdown Skin Temp/Moisture Exam: Warm/Dry Sepsis Skin Exam (color): Normal for Ethnicity, Cyanotic HEENT Atraumatic, PERRLA Neck Supple, No JVD Lungs Clear to Auscultation, Normal Air Movement Abdomen No Tenderness, slightly tender to touch on palpation normal bowel sounds Neurological Normal Gait, Normal Speech, Strength at 5/5 X4 Ext Assessment/Plan Assessment: This is a 66-year-old female with a past medical history of rectal cancer stage III status post resection and chemoradiation therapies status post proctitis who presented to the [facility] with persistent nausea and vomiting and extreme fatigue Vitals at the time of admission showed Blood pressure of 117/65, respiration rate of 18, saturation of 96% on room air, afebrile, pulse rate of 73 Labs at the time of admission showed WBC of 9.2 with no bands, normal hemoglobin and hematocrit, Potassium of 2.7,, sodium of 137, WN of 22, creatinine of 0.5, EKG showed normal sinus rhythm CT abdomen showed: 1. No evidence of bowel obstruction. No dilated loops of bowel. No definite acute inflammatory changes, although lack of intra-abdominal fat limits that evaluation. 2. 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 These findings are unchanged. Assessment 1. Acute hypokalemia secondary to persistent vomiting: The patient does not have any evidence of acute obstruction, 2. Hypochloremic hypokalemic metabolic alkalosis 3. Recent H. pylori infection treated with Flagyl? The patient said that she took Flagyl for 14 days in the absence of any other antibiotics. She told me that one of her serologies were positive for H. pylori but no record was noted 4. Radiation-induced proctitis 5. History of multiple small bowel obstructions and reversal of ileostomy: TRIGGERS BY IMODIUM 6. History of hypertension 7. Acute elevated lipase and absence of any radiological or clinical findings of pancreatitis most likely reactive and secondary to dehydration. Plan Admit to telemetry floor due to hypokalemia,we can dc ekta after potassium imporoves IV hydration with potassium 20 mEq in D5 normal saline Check magnesium levels Recheck potassium levels at night again No need for NG tube at this point as there is no evidence of obstruction. We can advance the diet to full liquid diet and advanced as tolerated in the morning I discussed the case with Osiel Harrison MD who is agreement with the plan Avoids narcotics to avoid small bowel obstruction Continue with lisinopril for blood pressure control, we can resume in the morning as the blood pressure is well controlled at this point Patient is full code DVT prophylaxis with subcutaneous Lovenox As Ranked By This Provider Problem List: 1. Small bowel obstruction due to adhesions 2. Nausea & vomiting Core Measures/Miscellaneous Acute Coronary Syndrome ACS Diagnosis: No Cerebrovascular Accident CVA/TIA Diagnosis: No Congestive Heart Failure CHF Diagnosis: No Venous Thromboembolism VTE Risk Factors: Acute medical illness, Age > 40 [facility] prophylaxis d/t: VTE low risk, No contraindications No VTE Pharm Prophylaxis d/t: VTE low risk, No contraindications VTE Diagnosis: No VTE Type: NONE VTE Confirmed by (Test): NONE Severe Sepsis Severe Sepsis Present: No Septic Shock Septic Shock Present: No Miscellaneous Documentation Attending Case Discussed With: BINH WATTS M.D Primary Care Physician: JALEN HOLMANKENNY Patient sees these Specialists Dr. Shiav Matthews Level of Patient Care: Telemetry EVA HOLMAN,[facility] 12/08/162: Attending MD Review Statement Attending Statement Attending MD Statement: examined this patient, discuss w/resident/PA/CHERRY CUTTER, agreed w/resident/PA/CHERRY CUTTER, reviewed EMR data (avail), discussed with nursing, reviewed images, amended to note Attending Assessment/Plan: Patient is a 66-year-old female with history significant for cancer status post ileostomy, radio and chemotherapy, with previous multiple episodes of subacute intestinal INFECTION due to radiation proctitis comes in again nausea, vomiting, and abdominal pain. He recently underwent bowel resection and underwent hernia repair at [facility]. The patient reported that her vomiting started since Thursday and has not been able to keep anything down. She has been vomiting clear liquids and weak and exhausted. She denies any fever or chills. She also underwent recent colonoscopy by Dr. Lindsay which be completed due to strictures. She is a chronic patient of Dr. Harrison and has operated upon her twice in the past. Vitals on admission were stable, and diffuse tenderness of the abdominal on deep palpation. Labs no leukocytosis and no bandemia,H & H stable, Na 137, K of 2.7 and creat of 0.5, EKG with normal sinus rhythm, CT abdomen no evidence of bowel obstruction with no evidence of dilated loops of bowel, no definite acute inflammatory chagnes. Assessment and Plan: Subacute intestinal obstruction secondary to colonic stricture, acute hypokalemia given persistent vomiting, recent H pylori infection treated with Flagyl. Admit patient to the telemetry floor for hypokalemia, replace elctrolytes ( mag and K), IV hydration, pt tolerated well clear liquid diets, advance diet to full in the am, surgical constult, continue the rest of her home medications, pain control ( watch out for narcotics analgesia ) full code, DVT prophylaxis,
--- NOTE | 2016-12-08 17:18 | NUR ---
PT ADMITTED TO ROOM 179-1
--- NOTE | 2016-12-08 17:40 | NUR ---
ALERT PT REPORTS UNABLE TO TAKE [PO POTASSIUM. STABLE AT THIS TIME NO NVD NOTED SINCE ED ARRIVAL.
--- NOTE | 2016-12-08 17:50 | NUR ---
REPORT GIVEN DAE, NURSE IS CONCERNED PT CANNOT TAKE PO POTASSIUM.... PA IN ED AWARE AND HOUSESTAFF TO WRITE REPLETE ORDERS. AT THIS TIME D5NS W 20 MEQ KCL @100 CCS/HR.
[2016-12-08 18:40] VITALS: BP 130/80
[2016-12-08 23:30] VITALS: BP 138/78
[2016-12-09 08:07] LABS: ABSOLUTE BASOPHIL COUNT 0.1 /CUMM (0.0-0.2); ABSOLUTE EOSINOPHIL COUNT 0.1 /CUMM (0.0-0.7); ABSOLUTE MONOCYTE COUNT 0.9 /CUMM (0.10-0.60); BASOPHIL % 0.7 % (0.0-2.0); RBC DISTRIBUTION WIDTH 17.7 % (11.5-14.5)
[2016-12-09 08:17] VITALS: BP 100/58
--- NOTE | 2016-12-09 08:22 | PN- Student ---
Subjective Subjective: CC: Persistent nausea and vomiting HPI: Patient is a 66-year-old female with a past medical history significant for stage 3 rectal cancer status post ileostomy, chemoradiation therapy, and small bowel resection, as well as radiation proctitis, and multiple previous small bowel obstructions who presented to [facility] complaining of persistent nausea and vomiting. The symptoms first began on the evening of 12/05/2016 with production of clear vomitus. Patient also reports that she recently finished a 14-day course of Flagyl for H. pylori. Patient reports feeling weakness, lethargy, and persistent abdominal pain. She has passed gas. She denies fevers or chills. Past Medical History: Right eye Enucleation, Hypertension, Pulmonary Embolism & DVT s/p Completion of AC, Umbilical Hernia, Small Bowel Obstructions, Osteoarthritis, Bunions, Colon/Rectal Cancer s/p Chemoradiation and Resection, Miscarriage, and Oophorectomy Past Surgical History: Colon Resection in 2001, Hysterectomy, Right Subclavian Port-A-Cath, Right Eye Enucleation, Bunions, Reversal of Ileostomy in 2003, Laparotomy, Lysis of Adhesions, Revision of Anastomosis, Ventral Hernia Repair in 2014, and Ileectomy Family History: Patient's mother has a history of coronary artery disease and ovarian cancer, and her father has a history of coronary artery disease. Home Medication List Ascorbate Calcium (Vitamin C) 500 mg Tablet 1 Tab PO Daily (Vitamin Support) Bacillus Coagulans/Inulin (Probiotic Formula Capsule) 1 Billion Cell-250 mg Capsule 1 Cap PO Daily (GI) [BLACK SERNA] 1 Cap PO Daily (Support) Calcium Carbonate/Vitamin D3 (Os-Cachorro 500+D3 Caplet) 500 mg-200 Tablet 1 Tab PO Daily (Vitamin Support) Cholecalciferol (Vitamin D3) 1,000 Unit Tablet 1 Tab PO Daily (Vitamin Support ) Cranberry Extract (Cranberry) (Unknown Strength) Capsule (Unknown Dose) PO Daily (Supplement) Cyanocobalamin (Vitamin B-12) (Unknown Strength) Tablet (Unknown Dose) PO Daily (Vitamin Support) Diphenoxylate HCl/Atropine (Lomotil 2.5-0.025 mg Tablet) 2.5 mg-0.025 mg Tablet 4 Tab PO BID (Diarrhea) Ferrous Sulfate 325 mg (65 mg Iron) Tablet 1 Tab PO Daily (Supplement) Lisinopril 5 mg Tablet 1 Tab PO Daily (Heart) Opium Tincture 10 mg/mL (Morphine) Tincture 0.8 mL PO 4XDP PRN (Unknown) Vitamin E (Unknown Strength) Capsule (Unknown Dose) PO Daily (Vitamin Support) Zolpidem Tartrate 5 mg Tablet 1 Tab PO QPM (Sleep) Allergies: No known allergies Review of Systems: Weakness, Lethargy, Abdominal pain, Nausea, Vomiting Objective Objective: Vital Signs Date Time Temp Pulse Resp B/P B/P Pulse O2 O2 Flow FiO2 Mean Ox Delivery Rate 12/09 1008 70 100/58 12/09 0817 98.5 70 18 100/58 97 Room Air 12/09 0800 Room Air 12/08 2330 97.7 84 18 138/78 97 Room Air 12/08 1840 97.9 70 20 130/80 98 Room Air 12/08 1805 125/72 12/08 1638 96.9 73 18 117/65 96 Room Air 12/08 1419 Room Air Intake & Output 12/09 1600 12/09 0800 12/09 0000 Intake Total 990 420 Output Total 300 Balance 690 420 Intake, IV 750 200 Intake, Oral 240 220 Number 1 1 Bowel Movements Output, Urine 300 Patient 91 lb Weight Current Medications Sig/Millicent Start time Last Medication Dose Route Stop Time Status Admin Acetaminophen 650 MG Q6P PRN 12/08 1630 AC PO Acetaminophen/ 1 TAB Q6P PRN 12/08 1630 DC Hydrocodone Bitart PO Ascorbic Acid 500 MG DAILY 12/09 1000 AC 12/09 PO 1008 Cholecalciferol 1,000 IU DAILY 12/09 1000 AC 12/09 PO 1008 Enoxaparin Sodium 40 MG DAILY 12/08 1707 AC 12/09 SC 1011 Hydromorphone HCl 0 .STK-MED ONE 12/08 1417 DC .ROUTE Hydromorphone HCl 1 MG ONCE ONE 12/08 1400 DC 12/08 IV 12/08 1401 1417 Lisinopril 5 MG DAILY 12/09 1000 AC 12/09 PO 1008 Magnesium Oxide 400 MG ONE ONE 12/08 2000 DC 12/08 PO 12/08 2000 2258 Ondansetron HCl 0 .STK-MED ONE 12/08 1418 DC .ROUTE Ondansetron HCl 4 MG ONCE ONE 12/08 1400 DC 12/08 IV 12/08 1401 1417 Patient Medication 1 ED .STK-MED ONE 12/09 1344 DC Teaching ED 12/09 1345 Potassium Chloride 40 MEQ ONCE ONE 12/09 0945 DC / PO 12/09 0946 1009 Potassium Chloride 40 MEQ ONCE ONE 12/09 0845 CAN PO 12/09 0846 Potassium Chloride 20 MEQ Q13H / 1800 AC 05/15 Dextrose/Sodium 1,000 ML IV 1904 Chloride Potassium Chloride 10 MEQ Q1 / 1800 DC 05/15 IV 12/08 2000 2308 Potassium Chloride 40 MEQ ONCE ONE 15 1800 DC 05/15 PO 12/08 1801 1907 Potassium Chloride 40 MEQ ONCE ONE /15 1545 DC PO 12/08 1546 Potassium Chloride 20 MEQ ONCE ONE 12/08 1545 DC 05/15 Dextrose/Sodium 1,000 ML IV 12/09 0144 1623 Chloride Sodium Chloride 1,000 ML BOLUS ONE 12/08 1400 DC 05/15 IV 12/08 1459 1412 Zolpidem Tartrate 5 MG QPM 12/08 2200 AC 12/08 PO 2258 Assessment/Plan Assessment: Patient is a 66-year-old female with a past medical history significant for stage 3 rectal cancer status post ileostomy, chemoradiation therapy, and small bowel resection, as well as radiation proctitis, and multiple previous small bowel obstructions who presented to [facility] complaining of persistent nausea and vomiting. The symptoms first began on the evening of 12/05/2016 with production of clear vomitus. 1 - Persistent Nausea and Vomiting 2 - Acute Hypokalemia 3 - Recent H. pylori Infection 4 - History of multiple small bowel obstructions 5 - History of hypertension ABDOMEN/PELVIS CT IMPRESSION: 1. No evidence of bowel obstruction. No dilated loops of bowel. No definite acute inflammatory changes, although lack of intra-abdominal fat limits that evaluation. 2. 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 These findings are unchanged. - - - - - - - - - - - - - - - - - - - - - - - - - - - - - - - - - - - - - - - - - - - - - - - - - 1. Persistent Nausea and Vomiting. Patient presented to [facility] with persistent nausea and vomiting that began on the evening of 12/05/2016. Dr. Garcia was consulted this morning and recommended safe discharge from a surgical point of view given that no evidence of obstruction was found on CT scan and she is tolerating the diet well. His recommendations are to hold Immodium on discharge and relay the plan to the primary team. Likely discharge today. 2. Acute Hypokalemia. Patient's potassium level was 2.8 on admission. Likely secondary to persistent nausea and vomiting. * Resolved 3. Recent H. pylori Infection. Patient reports that she recently finished a 14-day course of Flagyl for H. pylori. However, no records of this were found. 4. History of multiple small bowel obstructions. Patient has a history of small bowel obstructions secondary to strictures. Abdomen/Pelvis CT scan showed no evidence of obstruction. No dilated loops of bowel. No definite acute inflammatory changes, although lack of intra-abdominal fat limits that evaluation. She is tolerating the diet well. 5. History of Hypertension. * Continue Lisinopril DVT Prophylaxis - SC Lovenox Full Code
[2016-12-09 08:23] LABS: ABSOLUTE GRANULOCYTE CT 5.2 /CUMM (1.4-6.5); EOSINOPHIL % 0.9 % (0-5); GRANULOCYTE % 63.7 % (42.2-75.2); MEAN CORPUSCULAR HGB 27.3 PG (27.0-31.0); MEAN CORPUSCULAR HGB CONC 32.8 G/DL (33.0-37.0); MEAN CORPUSCULAR VOLUME 83.1 FL (81.0-99.0); MEAN PLATELET VOLUME 8.7 FL (7.4-10.4); PLATELET COUNT 299 /CUMM (130-400); RED BLOOD CELL CT 3.79 /CUMM (4.20-5.40); WHITE BLOOD CELL COUNT 8.2 /CUMM (4.8-10.8)
[2016-12-09 08:24] LABS: HEMATOCRIT 31.5 % (37-47)
--- NOTE | 2016-12-09 10:42 | PN- Housestaff ---
See Addendum Subjective Follow-up For: 1.Intractable nausea and vomiting 2.Hypokalemia 3.Radiation-induced proctitis 4.History of multiple small bowel obstructions and reversal of ileostomy 5.History of hypertension Tele-Events Since Last Visit: Sinus rhythm sinus tachycardia, heart rate is 60-119 with no overnight events Subjective: Afebrile, hemodynamically stable. Patient reported being nauseated overnight however she's feeling better since the morning. She denies abdominal pain, nausea, or chest pain. Review of Systems Constitutional: Reports: no symptoms. Objective Last 24 Hrs of Vital Signs/I&O Vital Signs Date Time Temp Pulse Resp B/P B/P Pulse O2 O2 Flow FiO2 Mean Ox Delivery Rate 12/09 1008 70 100/58 12/09 0817 98.5 70 18 100/58 97 Room Air 12/09 0800 Room Air 12/08 2330 97.7 84 18 138/78 97 Room Air 12/08 1840 97.9 70 20 130/80 98 Room Air 12/08 1805 125/72 12/08 1638 96.9 73 18 117/65 96 Room Air Intake & Output 12/09 1600 16 0800 12/09 0000 Intake Total 1650 990 420 Output Total 300 Balance 1650 690 420 Intake, IV 525 750 200 Intake, Oral 1125 240 220 Number 1 1 Bowel Movements Output, Urine 300 Patient 41.277 kg Weight Physical Exam General Appearance: Alert, Oriented X3, Cooperative, No Acute Distress HEENT: Atraumatic, PERRLA, EOMI, Mucous Membr. moist/pink Cardiovascular: Regular Rate, Normal S1, Normal S2, No Murmurs Lungs: Clear to Auscultation, Normal Air Movement Abdomen: Normal Bowel Sounds, Soft, No Tenderness Neurological: Normal Speech Extremities: No Clubbing, No Cyanosis, No Edema Assessment/Plan Assessment: This is a 66-year-old female with a past medical history of rectal cancer stage III status post resection and chemoradiation therapies status post proctitis who presented to the [facility] with persistent nausea and vomiting and extreme fatigue. She has history of multiple small bowel obstructions that required surgical interventions. Problems 1. Acute hypokalemia and hypochloremic secondary to persistent vomiting: The patient does not have any evidence of acute obstruction. Most likely she has gastroenteritis. 2. Radiation-induced proctitis 3. History of multiple small bowel obstructions and reversal of ileostomy: TRIGGERS BY IMODIUM 4. History of hypertension 5. Acute elevated lipase and absence of any radiological or clinical findings of pancreatitis most likely reactive and secondary to dehydration. Plan Patient was initially admitted because of the hypokalemia, intractable vomiting, extensive GI history, and fatigue. Initially we couldn't replete potassium orally because of the intractable vomiting. Patient responded rapidly to potassium repletion and IV hydration. This morning her potassium improved to 3.6. Patient did not have nausea since the morning, she insists to be discharged today if it's possible. Patient became stable and responded to treatment faster than we thought. * Continue IV hydration * Replete potassium as necessary * Avoid narcotics as they can induce bowel obstruction * Continue lisinopril * Advanced diet as tolerated Full liquid, without vessel regular diet if tolerated DVT prophylaxis with subcutaneous Lovenox Full code Problem List: 1. Vomiting 2. Nausea & vomiting Pain Ratin Pain Location: na Pain Goal: Remain pain free Pain Plan: See assessment and plan Tomorrow's Labs & Rationales: BEP if not discharged later today
--- NOTE | 2016-12-09 11:59 | Event Note ---
Event Note Event Note: Spoke to Dr Garcia @ around 06 25. He reviewed the patient scan and recommended that patient does not have any evidence of obstruction and as she is tolerating the diet well she can be discharged safely from surgical point of view. He recommended to keep holding the Immodium on discharge as can woren the SBO. He recommended to relay this plan to the primary team .
--- NOTE | 2016-12-09 13:50 | Patient Discharge Instructions ---
Discharge Instructions General Discharge Information You were seen/treated for: Hypokalemia secondary to vomiting Special Instructions: Please follow-up with your primary care doctor within 1 week Diet Continue normal diet: Yes Activity Full Activity/No Limits: Yes Activity Self Limited: Yes Acute Coronary Syndrome Inclusion Criteria At DC or during hospital stay patient has or had the following: ACS DIAGNOSIS No Discharge Core Measures Meds if any: Prescribed or Continued at Discharge Meds if any: NOT Prescribed or Continued at Discharge Congestive Heart Failure Inclusion Criteria At DC or during hospital stay patient has or had the following: CHF DIAGNOSIS No Discharge Core Measures Meds if any: Prescribed or Continued at Discharge Meds if any: NOT Prescribed or Continued at Discharge Cerebrovascular accident Inclusion Criteria At DC or during hospital stay patient has or had the following: CVA/TIA Diagnosis No Discharge Core Measures Meds if any: Prescribed or Continued at Discharge Meds if any: NOT Prescribed or Continued at Discharge Venous thromboembolism Inclusion Criteria VTE Diagnosis No VTE Type NONE VTE Confirmed by (Test) NONE Discharge Core Measures - Per Current guidelines, there needs to be overlap - treatment for the first 5 days of Warfarin therapy. - If discharged on Warfarin prior to 5 days of - overlap therapy, the patient will need to be - assessed for post discharge needs including - *Post discharge parental anticoagulation - *Warfarin and/or parental anticoagulation education - *Follow up date to check INR post discharge At least 5 days overlap therapy as Inpatient No Meds if any: Prescribed or Continued at Discharge Note: Overlap Therapy is Warfarin and Anticoagulant Meds if any: NOT Prescribed or Continued at Discharge
[2016-12-09 16:44] VITALS: BP 128/68
--- NOTE | 2016-12-11 01:05 | Discharge Summary ---
See Addendum Visit Information Visit Dates Admission Date: 12/08/16 Discharge Date: 12/09/16 Hospital Course Course Attending Physician: MIHAELA LAGUNA MD Primary Care Physician: JALEN HOLMAN,[facility] Course: This is a 66-year-old female with a past medical history of rectal cancer stage III status post resection and chemoradiation therapies status post proctitis who presented to the [facility] with persistent nausea and vomiting and extreme fatigue. She has history of multiple small bowel obstructions that required surgical interventions. Patient was admitted because of hypokalemia, intractable vomiting, extensive GI history, and fatigue. CT abdomen was done and the results was benign (detailed results can be found below )Possible causes of episode include viral gastritis or transient bowel obstruction (resolved). Patient was started on IV hydration, potassium was repleted, and we advanced diet as tolerated. Patient improved much more quickly than anticipated. On discharge potassium was within normal limits. Patient has no complaints and tolerating oral diet. Allergies: Coded Allergies: NO KNOWN ALLERGIES (09/07/15) Pertinent Lab Results: ERVICE DATE: 12/08/[id number]-[id number] TYPE: CAT - CT ABD & PELVIS W IV CONTRAST EXAMINATION: CT ABDOMEN AND PELVIS WITH CONTRAST CLINICAL INFORMATION: Nausea and vomiting. History of rectal cancer with frequent small bowel obstructions. COMPARISON: 08/11/2016 TECHNIQUE: Multidetector volumetric imaging was performed of the abdomen and pelvis before and after the IV administration of 94 mL of Optiray 320 intravenous contrast. Sagittal and coronal reformatted images were obtained on the technologist's workstation. DLP: 237 mGy-cm FINDINGS: LUNG BASES: Minimal scarring/atelectasis is seen in the right middle lobe. The visualized cardiac structures are unremarkable. LIVER, GALLBLADDER, AND BILIARY TREE: The liver is normal in size, shape, and attenuation. Stable hypoattenuating lesions in the liver, the largest is seen in segment 3 measuring 2.4 cm. These are unchanged. No biliary ductal dilatation. The gallbladder is unremarkable with no evidence of radiopaque gallstones, gallbladder wall thickening, or obvious pericholecystic inflammatory changes. PANCREAS: Mildly atrophic appearance of the pancreas with no focal abnormality seen. SPLEEN: Unremarkable. ADRENAL GLANDS: Unremarkable. KIDNEYS AND URETERS: The kidneys are normal in size, shape, and attenuation. No hydronephrosis, hydroureter, or calculi seen. No perinephric stranding. BLADDER: Unremarkable. GASTROINTESTINAL TRACT: The stomach is unremarkable. The small bowel is nondilated. No evidence of obstruction. Anastomotic suture lines are seen in the right lower quadrant and in the region of the rectum. Gas and stool is seen throughout the colon. Overall paucity of intra-abdominal fat limits evaluation of the bowel. No definite acute inflammatory changes are seen. Similar appearance of presacral edema. ABDOMINAL WALL: No significant hernia is appreciated. LYMPH NODES: Normal. VASCULAR: Unremarkable. PELVIC VISCERA: The uterus is not seen. No adnexal mass. OSSEOUS STRUCTURES: No acute or suspicious osseous abnormality. Grade 1 anterolisthesis of L4 on L5 and L5 on S1. Multilevel disc space narrowing and facet arthropathy. Severe degenerative changes of the left hip with loss of the joint space and prominent cyst formation. Moderate to severe degenerative changes at the right hip. These are similar to prior. There is likely a small left hip joint effusion. IMPRESSION: 1. No evidence of bowel obstruction. No dilated loops of bowel. No definite acute inflammatory changes, although lack of intra-abdominal fat limits that evaluation. 2. 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 These findings are unchanged. DICTATED BY: ARIANNA HOLMAN,HARI DATE/TIME DICTATED:12/08/161524 SENIOR JAVASCRIPT DEVELOPER:AGA DATE/TIME TRANSCRIBED:12/08/161524 CONFIDENTIAL, DO NOT COPY WITHOUT APPROPRIATE AUTHORIZATION. Disposition Summary Disposition Principal Diagnosis: Gastroenteritis Additional Diagnosis: Hypokalemia Discharge Disposition: home or self care Discharge Instructions General Discharge Information Code Status: Full Code Patient's Diet: Regular diet Patient's Activity: As tolerated Follow-Up Instructions/Appts: Please follow up with primary care doctor within 1 week Medications at Discharge Discharge Medications: Continue taking these medications: Ascorbate Calcium (Vitamin C) 500 MG TABLET 1 Tablet ORAL DAILY Comments: Last Taken: 12/09/16 Time: 9AM Cholecalciferol (Vitamin D3) 1,000 UNIT TABLET 1 Tablet ORAL DAILY Comments: Last Taken: 12/09/16 Time: 9AM Vitamin E (Vitamin E) (Unknown Strength) CAPSULE Unknown Dose ORAL DAILY Comments: NOT GIVEN IN HOSPITAL Bacillus Coagulans/Inulin (Probiotic Formula Capsule) 1 BILLION CELL-250 MG CAPSULE 1 Capsule ORAL DAILY Comments: NOT GIVEN IN HOSPITAL Cyanocobalamin (Vitamin B-12) (Unknown Strength) TABLET Unknown Dose ORAL DAILY Comments: NOT GIVEN IN HOSPITAL Cranberry Extract (Cranberry) (Unknown Strength) CAPSULE Unknown Dose ORAL DAILY Comments: NOT GIVEN IN HOSPITAL [BLACK SERNA] 1 Capsule ORAL DAILY Comments: NOT GIVEN IN HOSPITAL Opium Tincture (Opium Tincture) 10 MG/ML (MORPHINE) TINCTURE 0.8 Milliliters ORAL 4 times daily as needed as needed for UNKNOWN Qty = 288 Comments: NOT GIVEN IN HOSPITAL Lisinopril (Lisinopril) 5 MG TABLET 1 Tablet ORAL DAILY Qty = 90 Comments: Last Taken: 12/09/16 Time: 9AM Diphenoxylate HCl/Atropine (Lomotil 2.5-0.025 MG Tablet) 2.5 MG-0.025 MG TABLET 4 Tablet ORAL TWICE DAILY Qty = 240 Comments: NOT GIVEN IN HOSPITAL Zolpidem Tartrate (Zolpidem Tartrate) 5 MG TABLET 1 Tablet ORAL Every night Qty = 30 Comments: Last Taken: 12/08/16 Time: 10PM Ferrous Sulfate (Ferrous Sulfate) 325 MG (65 MG IRON) TABLET 1 Tablet ORAL DAILY Comments: NOT GIVEN IN HOSPITAL Calcium Carbonate/Vitamin D3 (Os-Cachorro 500+D3 Caplet) 500 MG-200 TABLET 1 Tablet ORAL DAILY Comments: NOT GIVEN IN HOSPITAL Copies To: JALEN HOLMAN,KENNY Attending MD Review Statement Documenting Attending: MIHAELA LAGUNA MD Other Findings: The patient was seen and agree with the plan of care upon discharge.
== END 2016-12-09 17:55 | DRG 641 ==
LOC: ERH 12:58 → ERHI 16:22 → 1NO 16:22 → ENRESERV 17:15 → 1NO 18:12
PROVIDERS: Internal Medicine Nephrology; Physician Assistant Medical; ADMIT Internal Medicine
DX: E87.6 Hypokalemia (principal); E87.3 Alkalosis; Z85.048 Personal history of other malignant neoplasm of rectum, rectosigmoid junction, and anus; I10 Essential (primary) hypertension; Z86.718 Personal history of other venous thrombosis and embolism; Z86.711 Personal history of pulmonary embolism; E87.8 Other disorders of electrolyte and fluid balance, not elsewhere classified; K52.9 Noninfective gastroenteritis and colitis, unspecified; K62.7 Radiation proctitis; Y84.2 Radiological procedure and radiotherapy as the cause of abnormal reaction of the patient, or of later complication, without mention of misadventure at the time of the procedure
CPT/HCPCS: 1NSP; 36415; 74177; 82436; 87045; 93005; 93010; 96361; 96374; 96375; 96376; J1650; J2405; J7042; S5012

== ENCOUNTER 2016-12-19 20:29 | Emergency (ER) | payer OTHER ==
[~2016-12-19] VITALS: Ht 160 cm; Wt 41.3 kg
[~2016-12-19 20:29] MED LIST changes: +FERROUS SULFAT325 M3 PO; +LISINOPRIL5 M1 PO; +LOMOTIL 2.5-0.1 EACH PO; +OPIUM TINC10 MG/1 ML PO; +OS-CAL 500+D31 EAC1 PO; +ZOLPIDEM TARTRAT5 M1 PO
--- NOTE | 2016-12-19 20:47 | ED GI/GU/ABDOMINAL COMPLAINT ---
History of Present Illness General Chief Complaint: Abdominal Pain/Flank Pain Stated Complaint: PT IS VOMITING ABDOMINAL PAIN Source: patient Exam Limitations: no limitations Vital Signs & Intake/Output Vital Signs & Intake/Output Vital Signs Date Time Temp Pulse Resp B/P B/P Pulse O2 O2 Flow FiO2 Mean Ox Delivery Rate 12/19 2335 79 18 141/66 99 Room Air 12/19 2105 Room Air 12/19 2101 97.1 84 18 173/82 97 Room Air ED Intake and Output 12/20 0000 12/19 1200 Intake Total 0 Output Total Balance 0 Intake, Oral 0 Patient 91 lb Weight Weight Reported by Patient Measurement Method Allergies Coded Allergies: NO KNOWN ALLERGIES (09/07/15) Reconcile Medications Ascorbate Calcium (Vitamin C) 500 MG TABLET 1 TAB PO DAILY VITAMIN SUPPORT ( Reported) Bacillus Coagulans/Inulin (Probiotic Formula Capsule) 1 BILLION CELL-250 MG CAPSULE 1 CAP PO DAILY GI (Reported) [BLACK SERNA] 1 CAP PO DAILY SUPPLEMENT (Reported) Calcium Carbonate/Vitamin D3 (Os-Cachorro 500+D3 Caplet) 500 MG-200 TABLET 1 TAB PO DAILY VITAMIN SUPPORT (Reported) Cholecalciferol (Vitamin D3) 1,000 UNIT TABLET 1 TAB PO DAILY VITAMIN SUPPORT (Reported) Cranberry Extract (Cranberry) (Unknown Strength) CAPSULE (Unknown Dose) PO DAILY SUPPLEMENT (Reported) Cyanocobalamin (Vitamin B-12) (Unknown Strength) TABLET (Unknown Dose) PO DAILY VITAMIN SUPPORT (Reported) Diphenoxylate HCl/Atropine (Lomotil 2.5-0.025 MG Tablet) 2.5 MG-0.025 MG TABLET 4 TAB PO BID DIARRHEA (Reported) Ferrous Sulfate 325 MG (65 MG IRON) TABLET 1 TAB PO DAILY SUPPLEMENT ( Reported) Lisinopril 5 MG TABLET 1 TAB PO DAILY HEART (Reported) Ondansetron HCl (Zofran) 4 MG TABLET 1 TAB PO Q6-8P PRN nausea Opium Tincture 10 MG/ML (MORPHINE) TINCTURE 0.8 ML PO 4XDP PRN UNKNOWN ( Reported) Vitamin E (Unknown Strength) CAPSULE (Unknown Dose) PO DAILY VITAMIN SUPPORT (Reported) Zolpidem Tartrate 5 MG TABLET 1 TAB PO QPM SLEEP (Reported) Triage Note: PT TO ED C/O "SEVERE ABDOMINAL PAIN" WITH +N/V FOR THE LAST 4 HRS. ADMITTED FOR HYPOKALEMIA ON 12/08. STATES "I FEEL WORSE TODAY" "I'M THROWING UP MORE" PT MOANING IN TRIAGE Triage Nurses Notes Reviewed? yes ? N Is pt currently ? No Onset: Abrupt Duration: constant Timing: single episode today Severity Numbers: 9 Location: generalized abdomen Radiation: no radiation Activities at Onset: eating Prior Abdominal Problems: similar symptoms HPI: Patient is a 66-year-old female with a past medical history of remote rectal cancer status post resection and remote radiation therapy,SBO, who was recently admitted to [facility] 9 days ago for concerns of intractable nausea vomiting abdominal pain and hypokalemia. Patient states that today she was in her normal state of health after eating chicken she had acute onset of nausea vomiting and abdominal pain since 1600. Patient currently declines a sharp stabbing 8/10 abdominal pain. No bowel movement today. Denies any fever chills shortness of breath cough. (NERI TARANGO) Past History Travel History Traveled to [place] past 21 day No Medical History Any Pertinent Medical History? 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, OOPHORECTOMY History of MRSA: No History of VRE: No History of CDIFF: No Surgical History Surgical History: colon resection (2001), hysterectomy, right subclavian Port-A- C enucleation LEFT eye bunions ileostomy reversal 2003 laparotomy, lysis of adhesions, revision of anastomosis, ventral hernia repair 01/11/15 ILEECTOMY, LYSIS OF ADHESION Psychosocial History Who do you live with Son Services at Home None What is your primary language Maori Tobacco Use: Never used Family History Family History, If Any: MOTHER FH: CAD (coronary artery disease) FH: ovarian cancer FATHER FH: CAD (coronary artery disease) FATHER (CAD s/p bipass age 69). BROTHER Hx Contributory? No (NERI TARANGO) Review of Systems Review of Systems Constitutional: Reports: no symptoms. EENTM: Reports: no symptoms. Respiratory: Reports: no symptoms. Cardiovascular: Reports: no symptoms. GI: Reports: see HPI, abdominal pain. Genitourinary: Reports: no symptoms. Musculoskeletal: Reports: no symptoms. Skin: Reports: no symptoms. Neurological/Psychological: Reports: no symptoms. Hematologic/Endocrine: Reports: no symptoms. Immunologic/Allergic: Reports: no symptoms. All Other Systems: Reviewed and Negative (NERI TARANGO) Physical Exam Physical Exam General Appearance: cachetic, moderate distress Head: atraumatic Eyes: Bilateral: normal appearance. Ears, Nose, Throat, Mouth: hearing grossly normal Neck: normal inspection Respiratory: normal breath sounds, chest non-tender Gastrointestinal: normal bowel sounds, soft, GENERALIZED ABDOMINAL PAIN Extremities: normal range of motion Neurologic/Psych: no motor/sensory deficits Skin: intact, normal color Core Measures ACS in differential dx? No Severe Sepsis Present: No Septic Shock Present: No (NERI TARANGO) Progress Differential Diagnosis: AAA, AMI, appendicitis, biliary colic, bowel obstruction , colon cancer, cholecystitis, diverticulitis, endometritis, esophageal varices, gastritis, hepatitis, hernia, hemorrhoids, ischemic bowel, inflamm bowel dis, kidney stone, Marycarmen-Hank tear, ovarian cyst, ovarian torsion, pancreatitis, PID/cervicitis, peptic ulcer, PUD/GERD, perforated viscous, SBO, UTI/pyelo Plan of Care: Orders Procedure Date/time Status LACTIC ACID 12/19 2099 Complete URINALYSIS 12/19 2046 Complete TROPONIN LEVEL 12/19 2033 Complete LIPASE 12/19 2033 Complete HEPATIC FUNCTION PANEL 12/19 2033 Complete CBC WITHOUT DIFFERENTIAL 12/19 2033 Complete BASIC METABOLIC PANEL 12/19 2033 Complete AMYLASE 12/19 2033 Complete EKG 12/19 2033 Active Current Medications Sig/Millicent Start time Last Medication Dose Stop Time Status Admin Ondansetron HCl 4 MG ONCE ONE 12/19 2099 CAN (Zofran) 12/19 2100 Laboratory Tests 12/19/16 2346: Lactic Acid Cancelled 12/19/162226: Urine Color YEL, Urine Clarity CLEAR, Urine pH 6.5, Ur Specific [place] 1.010, Urine Protein NEG, Urine Ketones TRACE H, Urine Nitrite NEG, Urine Bilirubin NEG, Urine Urobilinogen 0.2, Ur Leukocyte Esterase TRACE H, Ur Microscopic SEDIMENT EXAMINED, Urine WBC RARE, Urine Bacteria FEW H, Urine Hemoglobin NEG, Urine Glucose NEG 12/19/16 2100: Anion Gap 11, Estimated GFR > 60, BUN/Creatinine Ratio 35.0 H, Glucose 108 H, Lactic Acid 1.1, Calcium 9.6, Total Bilirubin 0.4, Direct Bilirubin 0.3, AST 23, ALT 36, Alkaline Phosphatase 108, Troponin I < 0.01, Total Protein 6.5, Albumin 3.8, Amylase 37, Lipase 83, CBC w Diff NO MAN DIFF REQ, RBC 4.20, MCV 82.9, MCH 26.9 L, RDW 17.0 H, MPV 8.1, Gran % 87.6 H, Lymphocytes % 6.9 L, Monocytes % 4.1, Eosinophils % 0.9, Basophils % 0.5, Absolute Granulocytes 13.9 H, Absolute Lymphocytes 1.1 L, Absolute Monocytes 0.7 H, Absolute Eosinophils 0.1, Absolute Basophils 0.1, PUBS MCHC 32.5 L 12/19/162045: Lactic Acid Cancelled 2140 PT HAD SIGNIFICANT RESOLUTION OF SYMPTOMS Patient had hypokalemia however she was given by mouth potassium where she tolerated this. Patient also had significant complete resolution of nausea vomiting and abdominal pain. Patient was able tolerate by mouth upon discharge. I discussed with the radiologist about the CT scan impression and which there is no concern of an obstructive process and patient's abdomen at this time. He will CHANGE and make an addendum on the impression of the CT scan. Upon discharge patient looks well no apparent distress and will comply with discharge instructions and had no questions. Patient is already taking supplementation of potassium (MINERVA ALBERTS,NERI) Diagnostic Imaging: Viewed by Me: CT Scan. Discussed w/RAD: CT Scan. Radiology Impression: SEE COMMENTS Initial ED EKG: normal QRS complex, normal sinus rhythm Comments: PATIENT: DILIP BUCHANAN PRESENT AGE: 66 PATIENT ACCOUNT NO: [id number] : 49 LOCATION: [facility] ORDERING PHYSICIAN: NERI ALBERTS SERVICE DATE: 12/19/16 EXAM TYPE: CAT - CT ABD & PELVIS W IV CONTRAST EXAMINATION: CT ABDOMEN AND PELVIS WITH CONTRAST CLINICAL INFORMATION: Abdominal pain. History of small bowel obstruction. COMPARISON: 12/08/2016 TECHNIQUE: Multidetector volumetric imaging was performed of the abdomen and pelvis before and after the IV administration of 95 mL of Optiray 320 intravenous contrast. Sagittal and coronal reformatted images were obtained on the technologist's workstation. DLP: 256 mGy-cm FINDINGS: LUNG BASES: Stable 0.3 cm right lower lobe pulmonary nodule series 2 image 14. Stable 0.3 cm left lower lobe pulmonary nodule series 2 image 17. LIVER, GALLBLADDER, AND BILIARY TREE: The liver is normal in size, shape, and attenuation. No biliary ductal dilatation. Stable hypoattenuating liver lesions. The gallbladder is unremarkable with no evidence of radiopaque gallstones, gallbladder wall thickening, or obvious pericholecystic inflammatory changes. PANCREAS: Mildly atrophic with no focal abnormality. SPLEEN: Unremarkable. ADRENAL GLANDS: Unremarkable. KIDNEYS AND URETERS: The kidneys are normal in size, shape, and attenuation. There is increased fullness of the right collecting system. The ureter is difficult to track along its entire course. There are no new calcifications in the pelvis to suggest a stone. No perinephric stranding. BLADDER: Unremarkable. GASTROINTESTINAL TRACT: The stomach is unremarkable. Mildly prominent loops of small bowel are seen in the central pelvis, although lack of intra-abdominal fat limits more complete evaluation. No evidence for wall thickening. This does not have the appearance of obstructive bowel. There is stool throughout the visualized colon with a moderate stool burden. Anastomotic suture lines in the right lower quadrant and region of the rectum. Presacral edema is unchanged. ABDOMINAL WALL: No significant hernia is appreciated. LYMPH NODES: Normal. VASCULAR: Unremarkable. PELVIC VISCERA: The uterus is not seen. No adnexal mass. OSSEOUS STRUCTURES: No acute or suspicious osseous abnormality. Redemonstration of a small left hip joint effusion with severe degenerative changes of both hips. Multilevel degenerative changes throughout the spine. IMPRESSION: 1. Mildly increased prominence of small bowel in the central pelvis without a nonobstructive appearance. Stool throughout the colon. 2. Increased fullness of the right renal collecting system. No obstructing calculus. 3. Severe degenerative changes of the hips. Left hip joint effusion present. (MINERVA ALBERTS,NERI) Departure Departure Disposition: HOME OR SELF CARE Condition: Stable Clinical Impression Primary Impression: Abdominal pain Secondary Impressions: Hypokalemia, Nausea and vomiting Referrals: BETSY HOLMAN,JOAQUÍN RAO MD,KENNY (PCP/Family) Additional Instructions: As discussed begin a 24-hour clear liquid and bland diet to rest her bowels. Continue all medications as directed. Begin the prescription Zofran for nausea. Follow-up on Thursday with your rn care transition Dr. MEYER if no better. If symptoms worsen return to emergency room. Prescription is waiting at [facility] pharmacy Departure Forms: Customer Survey General Discharge Information Prescriptions: Current Visit Scripts Ondansetron HCl (Zofran) 1 TAB PO Q6-8P PRN nausea #15 TAB (NERI TARANGO) PA/TEACHERS' ASSISTANT Co-Sign Statement Statement: ED Attending supervision documentation- [] I saw and evaluated the patient. I have also reviewed all the pertinent lab results and diagnostic results. I agree with the findings and the plan of care as documented in the PA's/TEACHERS' ASSISTANT's documentation. x[] I have reviewed the ED Record and agree with the PA's/TEACHERS' ASSISTANT's documentation. [] Additions or exceptions (if any) to the PAs/TEACHERS' ASSISTANT's note and plan are summarized below: [] (RODNEY HOLMAN,BIN Delgado)
[2016-12-19 21:11] LABS: ABSOLUTE BASOPHIL COUNT 0.1 /CUMM (0.0-0.2); ABSOLUTE EOSINOPHIL COUNT 0.1 /CUMM (0.0-0.7); ABSOLUTE GRANULOCYTE CT 13.9 /CUMM (1.4-6.5); ABSOLUTE LYMPH COUNT 1.1 /CUMM (1.2-3.4); ABSOLUTE MONOCYTE COUNT 0.7 /CUMM (0.10-0.60); BASOPHIL % 0.5 % (0.0-2.0); EOSINOPHIL % 0.9 % (0-5); HEMATOCRIT 34.8 % (37-47); MEAN CORPUSCULAR HGB 26.9 PG (27.0-31.0); MEAN CORPUSCULAR HGB CONC 32.5 G/DL (33.0-37.0); MEAN CORPUSCULAR VOLUME 82.9 FL (81.0-99.0); MEAN PLATELET VOLUME 8.1 FL (7.4-10.4); PLATELET COUNT 416 /CUMM (130-400); WHITE BLOOD CELL COUNT 15.9 /CUMM (4.8-10.8)
[2016-12-19 21:23] LABS: GRANULOCYTE % 87.6 % (42.2-75.2)
--- NOTE | 2016-12-19 22:33 | CT SCAN REPORT ---
EXAMINATION: CT ABDOMEN AND PELVIS WITH CONTRAST CLINICAL INFORMATION: Abdominal pain. History of small bowel obstruction. COMPARISON: 12/08/2016 TECHNIQUE: Multidetector volumetric imaging was performed of the abdomen and pelvis before and after the IV administration of 95 mL of Optiray 320 intravenous contrast. Sagittal and coronal reformatted images were obtained on the technologist's workstation. DLP: 256 mGy-cm FINDINGS: LUNG BASES: Stable 0.3 cm right lower lobe pulmonary nodule series 2 image 14. Stable 0.3 cm left lower lobe pulmonary nodule series 2 image 17. LIVER, GALLBLADDER, AND BILIARY TREE: The liver is normal in size, shape, and attenuation. No biliary ductal dilatation. Stable hypoattenuating liver lesions. The gallbladder is unremarkable with no evidence of radiopaque gallstones, gallbladder wall thickening, or obvious pericholecystic inflammatory changes. PANCREAS: Mildly atrophic with no focal abnormality. SPLEEN: Unremarkable. ADRENAL GLANDS: Unremarkable. KIDNEYS AND URETERS: The kidneys are normal in size, shape, and attenuation. There is increased fullness of the right collecting system. The ureter is difficult to track along its entire course. There are no new calcifications in the pelvis to suggest a stone. No perinephric stranding. BLADDER: Unremarkable. GASTROINTESTINAL TRACT: The stomach is unremarkable. Mildly prominent loops of small bowel are seen in the central pelvis, although lack of intra-abdominal fat limits more complete evaluation. No evidence for wall thickening. This does not have the appearance of obstructive bowel. There is stool throughout the visualized colon with a moderate stool burden. Anastomotic suture lines in the right lower quadrant and region of the rectum. Presacral edema is unchanged. ABDOMINAL WALL: No significant hernia is appreciated. LYMPH NODES: Normal. VASCULAR: Unremarkable. PELVIC VISCERA: The uterus is not seen. No adnexal mass. OSSEOUS STRUCTURES: No acute or suspicious osseous abnormality. Redemonstration of a small left hip joint effusion with severe degenerative changes of both hips. Multilevel degenerative changes throughout the spine. IMPRESSION: 1. Mildly increased prominence of small bowel in the central pelvis without a nonobstructive appearance. Stool throughout the colon. 2. Increased fullness of the right renal collecting system. No obstructing calculus. 3. Severe degenerative changes of the hips. Left hip joint effusion present.
[2016-12-19] MEDS ORDERED: ZOFRAN4 M2 PO (23:06)
[2016-12-19 23:35] VITALS: BP 141/66
== END 2016-12-19 23:37 ==
LOC: ERH 20:29
PROVIDERS: Pediatrics
DX: R10.84 Generalized abdominal pain (principal); E87.6 Hypokalemia; R11.2 Nausea with vomiting, unspecified
CPT/HCPCS: 74177; 81001; 93005; 93010; 96374; 96375; J2405

== ENCOUNTER 2017-02-14 13:01 | Inpatient (IN) | payer OTHER ==
[~2017-02-14] VITALS: Ht 160 cm; Wt 45.8 kg
[~2017-02-14 13:01] MED LIST changes: +K-TAB ER20 MEQ PO; +ZOFRAN ODT4 M1 SL; +ZOFRAN4 M2 PO
--- NOTE | 2017-02-14 13:14 | ED GENERAL ADULT ---
See Addendum History of Present Illness General Chief Complaint: General Adult Stated Complaint: N/V, ABD PAIN, CHEST PAIN Source: patient, family Exam Limitations: no limitations Vital Signs & Intake/Output Vital Signs & Intake/Output Vital Signs Date Time Temp Pulse Resp B/P B/P Pulse O2 O2 Flow FiO2 Mean Ox Delivery Rate 02/15 0342 74 122/68 02/14 2205 99.4 76 22 180/105 98 Room Air 02/14 2155 170/110 02/14 2124 98.1 81 20 164/72 99 Room Air 02/14 1824 98.7 75 19 122/75 94 Room Air 02/14 1610 142/90 02/14 1516 97.8 56 18 168/74 94 Room Air 02/14 1335 96 Room Air Room Air 02/14 1313 99.0 80 22 188/102 96 Room Air ED Intake and Output 02/15 0000 02/14 1200 Intake Total 1000 Output Total 0 Balance 1000 Intake, IV 1000 Intake, Oral 0 Output, Urine 0 Patient 100 lb Weight Weight Reported by Patient Measurement Method Allergies Coded Allergies: NO KNOWN ALLERGIES (09/07/15) Reconcile Medications Ascorbate Calcium (Vitamin C) 500 MG TABLET 1 TAB PO DAILY VITAMIN SUPPORT ( Reported) Bacillus Coagulans/Inulin (Probiotic Formula Capsule) 1 BILLION CELL-250 MG CAPSULE 1 CAP PO DAILY GI (Reported) [BLACK SERNA] 1 CAP PO DAILY SUPPLEMENT (Reported) Calcium Carbonate/Vitamin D3 (Os-[place] 500+D3 Caplet) 500 MG-200 TABLET 1 TAB PO DAILY VITAMIN SUPPORT (Reported) Cholecalciferol (Vitamin D3) 1,000 UNIT TABLET 1 TAB PO DAILY VITAMIN SUPPORT (Reported) Cranberry Extract (Cranberry) (Unknown Strength) CAPSULE (Unknown Dose) PO DAILY SUPPLEMENT (Reported) Cyanocobalamin (Vitamin B-12) (Unknown Strength) TABLET (Unknown Dose) PO DAILY VITAMIN SUPPORT (Reported) Diphenoxylate HCl/Atropine (Lomotil 2.5-0.025 MG Tablet) 2.5 MG-0.025 MG TABLET 4 TAB PO BID DIARRHEA (Reported) Ferrous Sulfate 325 MG (65 MG IRON) TABLET 1 TAB PO DAILY SUPPLEMENT ( Reported) Hydromorphone HCl (Dilaudid) 2 MG TABLET 1 TAB PO BIDP PRN pain Lisinopril 5 MG TABLET 1 TAB PO DAILY HEART (Reported) Ondansetron (Zofran Odt) 4 MG TAB.RAPDIS 1 TAB SL TID PRN nausea Opium Tincture 10 MG/ML (MORPHINE) TINCTURE 0.8 ML PO 4XDP PRN UNKNOWN ( Reported) Potassium Chloride (K-Tab ER) 20 MEQ TABLET.ER 1 TAB PO Q24 low k Vitamin E (Unknown Strength) CAPSULE (Unknown Dose) PO DAILY VITAMIN SUPPORT (Reported) Zolpidem Tartrate 5 MG TABLET 1 TAB PO QPM SLEEP (Reported) Triage Nurses Notes Reviewed? yes Onset: Abrupt Duration: day(s): (1), constant, continues in ED, getting worse Timing: single episode today Injury Environment: home Severity: mild, moderate Severity Numbers: 9 No Modifying Factors: none LMP (ages 10-50): post menopausal : No Patient currently breastfeeds: No HPI: 67-year-old female past medical history of pulmonary embolism, small bowel obstruction and colon cancer presents for evaluation of abdominal pain chest pain nausea and vomiting. Patient was seen for the same thing yesterday. She was given pain medication and Zofran. She was discharged home feeling completely fine. She is feeling okay last night she went to sleep and woke up this morning and her symptoms have returned. She reports diffuse abdominal pain diffuse chest pain. Pain is rated as a 10 out of 10 and she has not taken any medicine for the pain. She states she is often able to eat or drink anything due to nausea and vomiting. She denies any fevers, shortness of breath, hemoptysis, lower extremity edema, urinary symptoms, back pain, hemoptysis or any other associated symptoms. She had a normal CTA of her chest yesterday and it scan of her abdomen and pelvis with contrast. (MARCO ANTONIO ALCARAZ PA-C) Past History Travel History Traveled to [place] past 21 day No Medical History Any Pertinent Medical History? 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: miscarriage, OOPHORECTOMY History of MRSA: No History of VRE: No History of CDIFF: No Surgical History Surgical History: colon resection (2001), hysterectomy, right subclavian Port-A- C enucleation LEFT eye bunions ileostomy reversal 2003 laparotomy, lysis of adhesions, revision of anastomosis, ventral hernia repair 01/11/15 ILEECTOMY, LYSIS OF ADHESION Psychosocial History Who do you live with Son Services at Home None What is your primary language Slovenian Family History Family History, If Any: MOTHER FH: CAD (coronary artery disease) FH: ovarian cancer FATHER FH: CAD (coronary artery disease) FATHER (CAD s/p bipass age 69). BROTHER Hx Contributory? No (MARCO ANTONIO ALCARAZ PA-C) Review of Systems Review of Systems Constitutional: Reports: see HPI, weakness. EENTM: Reports: no symptoms. Respiratory: Reports: see HPI, short of breath. Cardiovascular: Reports: see HPI, chest pain. GI: Reports: see HPI, abdominal pain, nausea. Genitourinary: Reports: no symptoms. Musculoskeletal: Reports: no symptoms. Skin: Reports: no symptoms. Neurological/Psychological: Reports: no symptoms. Hematologic/Endocrine: Reports: no symptoms. Immunologic/Allergic: Reports: no symptoms. All Other Systems: Reviewed and Negative (LISSA RUIZ,MARCO ANTONIO) Physical Exam Physical Exam General Appearance: alert, awake, anxious, moderate distress, thin Head: atraumatic, normal appearance Eyes: Bilateral: normal appearance, PERRL, EOMI. Ears, Nose, Throat: normal pharynx, normal ENT inspection, hearing grossly normal Neck: normal inspection, supple, full range of motion Respiratory: normal breath sounds, chest non-tender, no respiratory distress, lungs clear Cardiovascular: regular rate/rhythm, normal peripheral pulses Peripheral Pulses: 2+ radial (R), 2+ radial (L) Gastrointestinal: normal bowel sounds, soft, non-tender, no organomegaly Back: normal inspection, normal range of motion, no vertebral tenderness Extremities: normal inspection, normal capillary refill, normal range of motion, no edema Neurologic/Psych: no motor/sensory deficits, awake, alert, oriented x 3, normal gait, normal mood/affect Reflexes: 2+: knee (R), knee (L). Skin: intact, normal color, warm/dry Lymphatic: no anterior cervical scotty Core Measures ACS in differential dx? No CVA/TIA Diagnosis: No Severe Sepsis Present: No Septic Shock Present: No (LISSA RUIZ,MARCO ANTONIO) Progress Differential Diagnoses I considered the following diagnoses in my evaluation of the patient: [Pulmonary embolus, acute coronary syndrome, small bowel obstruction, colon cancer, appendicitis, cholecystitis, pancreatitis, aortic dissection, gastroenteritis] Plan of Care: Orders Procedure Date/time Status Nothing by Mouth 02/15 B Active VRE ACTIVE SURVIELLANCE 02/15 0641 Active ACTIVE SURVEILLANCE NARES 02/15 0641 Active XRY-CHEST XRAY, PA AND LATERAL 02/15 0600 Active TROPONIN LEVEL 02/15 0600 Active CBC WITHOUT DIFFERENTIAL 02/15 0600 Active BASIC ELECTROLYTES PLUS BUN&CR 02/15 06 Active EKG 02/15 0600 Active Transfer Disposition 02/15 0539 Active Transfer patient to 02/15 0446 Active EKG 02/15 0121 Active Admit to inpatient 02/15 UNK Active ECHOCARDIOGRAM 02/15 UNK Active Pathway - chart 02/14 2302 Active House Staff 02/14 230 Active Code Status 02/14 2302 Active TROPONIN LEVEL 02/14 2259 Complete EKG 02/14 2259 Active Pathway - chart 02/14 2213 Active Vital Signs 02/14 2155 Active Teach/Educate 02/14 2155 Active Pain Treatment and Response 02/14 2155 Active Nutritional Intake, Monitor 02/14 2155 Active Isolation 02/14 2155 Active Intake & Output 02/14 2155 Active Patient Care Conference 02/14 2155 Active Activity/Ambulation 02/14 215 Active Patient Data 02/14 2010 Active OXYGEN SETUP (GEN) 02/14 183 Active Saline Lock 02/[address] in observation 02/14 1832 Active Vital Signs 02/14 1832 Active Activity/Ambulation 02/14 1832 Active Code Status 02/14 1832 Complete URINE DRUGS OF ABUSE 02/14 1400 Complete Intake & Output 02/14 1334 Active URINALYSIS 02/14 1326 Complete TROPONIN LEVEL 02/14 1326 Complete LIPASE 02/14 1326 Complete LACTIC ACID 02/14 1326 Complete C-REACTIVE PROTEIN 02/14 1326 Complete COMPREHENSIVE METABOLIC PANEL 02/14 1326 Complete CBC WITHOUT DIFFERENTIAL 02/14 1326 Complete EKG 02/14 1302 Active INCENTIVE SPIROMETRY TRX (GEN) 02/14 UNK Active Lab Add-on Test 02/14 UNK Active VTE Mechanical Prophylaxis 02/14 UNK Active Vital Signs 02/14 UNK Complete Intake & Output 02/14 UNK Complete Current Medications Sig/Millicent Start time Last Medication Dose Stop Time Status Admin Enoxaparin Sodium 30 MG DAILY 02/15 1000 CAN (Lovenox) Famotidine 20 MG BID 02/15 1000 AC (Pepcid) Heparin Sodium 25,000 UNIT Q24H 02/15 0515 AC 02/15 (Porcine) 0656 (Heparin) Sodium Chloride 500 ML Promethazine HCl 12.5 MG Q4-6 PRN PRN 02/15 0200 AC (Phenergen) 02/22 0159 Hydromorphone HCl 1 MG Q6P PRN 02/14 2315 AC (Dilaudid) Sodium Chloride 1,000 ML .[id number] 02/14 2300 AC 02/15 (Normal Saline 0.9%) 02/15 1219 0157 Acetaminophen 650 MG Q6P PRN 02/14 2215 AC (Tylenol) Hydromorphone HCl 2 MG Q6P PRN 02/14 2215 AC 02/15 (Dilaudid) 0646 Laboratory Tests 02/15/17 0630: Sodium Pending, Potassium Pending, Chloride Pending, Carbon Dioxide Pending, Anion Gap Pending, BUN Pending, Creatinine Pending, BUN/Creatinine Ratio Pending , Troponin I Pending, CBC w Diff Pending, WBC Pending, RBC Pending, Hgb Pending, Hct Pending, MCV Pending, MCH Pending, RDW Pending, Plt Count Pending, MPV Pending, PUBS MCHC Pending 02/15/17 0025: Troponin I 2.09 *H 02/14/17 1626: Lactic Acid Cancelled 02/14/17 1400: Urine Opiates Screen 277.00, Methadone Screen < 40, Barbiturate Screen < 60, Ur Phencyclidine Scrn < 6.00, Amphetamines Screen < 100, U Benzodiazepines Scrn < 85, Urine Cocaine Screen < 50, Urine Cannabis Screen < 5.00, Urine Color YEL, Urine Clarity CLEAR, Urine pH 7.0, Ur Specific [place] 1.010, Urine Protein NEG, Urine Ketones NEG, Urine Nitrite NEG, Urine Bilirubin NEG, Urine Urobilinogen 0.2, Ur Leukocyte Esterase NEG, Ur Microscopic SEDIMENT EXAMINED, Urine RBC 1-3, Urine WBC RARE, Ur Epithelial Cells RARE, Urine Bacteria FEW H, Urine Hemoglobin TRACE-INTACT, Urine Glucose NEG 02/14/17 1340: Anion Gap 13, Estimated GFR > 60, BUN/Creatinine Ratio 32.0 H, Glucose 128 H, Lactic Acid 1.4, Calcium 10.2, Total Bilirubin 1.0, AST 21, ALT 29, Alkaline Phosphatase 131 H, Troponin I < 0.01, C-Reactive Prot, Quant < 0.5, Total Protein 7.4, Albumin 4.6, Globulin 2.8, Albumin/Globulin Ratio 1.6, Lipase 124, CBC w Diff NO MAN DIFF REQ, RBC 5.12, MCV 82.4, MCH 26.8 L, RDW 14.6 H, MPV 8.3, Gran % 77.1 H, Lymphocytes % 15.0 L, Monocytes % 7.1, Eosinophils % 0.5, Basophils % 0.3, Absolute Granulocytes 6.6 H, Absolute Lymphocytes 1.3, Absolute Monocytes 0.6, Absolute Eosinophils 0, Absolute Basophils 0, PUBS MCHC 32.5 L Microbiology 02/15 641 UPPER RESP: Surveillance Culture - ORD 02/15 641 GI: Surveillance Culture - ORD Patient had a completely normal CTA of her chest yesterday and a CT of her abdomen and pelvis yesterday. She was feeling completely fine when she left here. Patient will be given a liter of normal saline 1mg of Dilaudid and 4 of Zofran. She will then have some basic blood work and EKG. 3 PM: Patient reevaluated. She is still reporting abdominal pain. Her blood work is within normal limits. EKG is unchanged. She'll be given another milligram of Dilaudid and 25 of Phenergan. 4:30 PM: Patient reevaluated. She is sleeping comfortably in the room. Blood work is within normal limits. Patient will be by mouth challenged. If she is not able tolerate food and fluids by mouth she'll need to be admitted. 6 PM: Patient has been able tolerate small sips of fluids and crackers. She continues to report abdominal pain. She'll be given Protonix and attempt to relieve some symptoms. Patient has been lethargic since receiving Phenergan. She repeatedly falls asleep and rested comfortably. 6:40 PM patient continues to complain of pain however she is too lethargic to receive any more narcotics. She is not been able to tolerate much by mouth. She continues to have severe abdominal pain we'll check a abdominal plain film look for air fluid levels. Patient will need admission for intractable nausea vomiting abdominal pain. Hospitalist called. Patient will be admitted to observation for intractable nausea vomiting and abdominal pain. (MARCO ANTONIO ALCARAZ PA-C) Initial ED EKG: NORMAL SINUS RHYTHM CONSIDER LVH (MARCO ANTONIO ALCARAZ PA-C) Departure Departure Disposition: STILL A PATIENT Condition: Stable Clinical Impression Primary Impression: Intractable abdominal pain Referrals: KENNY RAO MD (PCP/Family) Departure Forms: Customer Survey General Discharge Information Observation Note Spoke With: DARIO HOLMAN,KRISTINA Physician Advisor Notified: VIGNESH HOLMAN,VINAY [address] Place Patient In: Non-ED OBS Care Area Rationale for Observation: My rational for observation is as follows [IV fluids, IV pain medicine, abdominal imaging, serial exams, monitoring of vital signs, surgical consult]. (MARCO ANTONIO ALCARAZ PA-C) PA/CHIEF LOCK TENDER OPERATOR Co-Sign Statement Statement: ED Attending supervision documentation- x I saw and evaluated the patient. I have also reviewed all the pertinent lab results and diagnostic results. I agree with the findings and the plan of care as documented in the PA's/CHIEF LOCK TENDER OPERATOR's documentation. I have reviewed the ED Record and agree with the PA's/CHIEF LOCK TENDER OPERATOR's documentation. [] Additions or exceptions (if any) to the PAs/CHIEF LOCK TENDER OPERATOR's note and plan are summarized below: [] (CHELLE HOLMAN,JESSE) Critical Care Note Critical Care Note Critical Care Time: non-applicable (MARCO ANTONIO ALCARAZ PA-C)
[2017-02-14 13:49] LABS: ABSOLUTE BASOPHIL COUNT 0 /CUMM (0.0-0.2); ABSOLUTE EOSINOPHIL COUNT 0 /CUMM (0.0-0.7); ABSOLUTE GRANULOCYTE CT 6.6 /CUMM (1.4-6.5); ABSOLUTE LYMPH COUNT 1.3 /CUMM (1.2-3.4); ABSOLUTE MONOCYTE COUNT 0.6 /CUMM (0.10-0.60); BASOPHIL % 0.3 % (0.0-2.0); EOSINOPHIL % 0.5 % (0-5); GRANULOCYTE % 77.1 % (42.2-75.2); HEMATOCRIT 42.2 % (37-47); MEAN CORPUSCULAR HGB 26.8 PG (27.0-31.0); MEAN CORPUSCULAR HGB CONC 32.5 G/DL (33.0-37.0); MEAN CORPUSCULAR VOLUME 82.4 FL (81.0-99.0); MEAN PLATELET VOLUME 8.3 FL (7.4-10.4); PLATELET COUNT 443 /CUMM (130-400); RBC DISTRIBUTION WIDTH 14.6 % (11.5-14.5); RED BLOOD CELL CT 5.12 /CUMM (4.20-5.40); WHITE BLOOD CELL COUNT 8.6 /CUMM (4.8-10.8)
--- NOTE | 2017-02-14 20:13 | RADIOLOGY REPORT ---
EXAMINATION: XR PORTABLE ABDOMEN CLINICAL INFORMATION: Abdominal pain, nausea, and vomiting. Small bowel obstruction, perforation COMPARISON: CT 12/19/2016 and earlier TECHNIQUE: AP portable supine view of the abdomen. FINDINGS: Degenerative changes of the lumbar spine. Severe degenerative changes of the hips, left greater than right. Gas is seen within the stomach, small bowel, and colon. No dilated loops of bowel seen. No pneumatosis or pneumoperitoneum. Moderate volume of stool throughout the colon. IMPRESSION: Gas is seen within nondilated stomach, small bowel, and colon. Of note, only an AP supine view of the abdomen was ordered and obtained. This technique has limited sensitivity for identifying pneumoperitoneum or air-fluid levels to suggest obstruction.
--- NOTE | 2017-02-14 20:29 | History & Physical ---
SIRENA SALOMON MD 02/14/172027: General Information and HPI MD Statement: I have seen and personally examined DILIP BUCHANAN and documented this H& P. The patient is a 67 year old F who presented with a patient stated chief complaint of [chest pain, abdominal pain, and vomiting]. Source of Information: patient, old records Exam Limitations: no limitations History of Present Illness: pt is a 67 yo female with pmh significant for of stage III rectal carcinoma s/p resection, chemotherapy, and radiation, with radiation proctitis, multiple small bowel obstructions, s/p surgery ileocecectomywhich was reversed, cardioversion, htn, osteoarthritis. She presented to the ED c/o chest pain, abdominal pain, and vomiting. She describes the chest pain as a pressure like pain with associated SOB and anxiety. She reports having upwards of 30 episodes of vomiting today, decreased PO intake for 2-3 days. She denies hematemisis, and says the vomit has had small white solids in it. Of note, the nurses report that she has not vomited since presentation, but she does claim to be extremely nauseas. She denies fever or chills. She has diarrhea, but reports that is her baseline. She presented to the ED yesterday with the same complaints, was given zofran and pain medication and left feeling better. She reports that the pain today is worse. Allergies/Medications Allergies: Coded Allergies: NO KNOWN ALLERGIES (09/07/15) Home Med list Ascorbate Calcium (Vitamin C) 500 MG TABLET 1 TAB PO DAILY VITAMIN SUPPORT ( Reported) Bacillus Coagulans/Inulin (Probiotic Formula Capsule) 1 BILLION CELL-250 MG CAPSULE 1 CAP PO DAILY GI (Reported) [BLACK SERNA] 1 CAP PO DAILY SUPPLEMENT (Reported) Calcium Carbonate/Vitamin D3 (Os-Cachorro 500+D3 Caplet) 500 MG-200 TABLET 1 TAB PO DAILY VITAMIN SUPPORT (Reported) Cholecalciferol (Vitamin D3) 1,000 UNIT TABLET 1 TAB PO DAILY VITAMIN SUPPORT (Reported) Cranberry Extract (Cranberry) (Unknown Strength) CAPSULE (Unknown Dose) PO DAILY SUPPLEMENT (Reported) Cyanocobalamin (Vitamin B-12) (Unknown Strength) TABLET (Unknown Dose) PO DAILY VITAMIN SUPPORT (Reported) Diphenoxylate HCl/Atropine (Lomotil 2.5-0.025 MG Tablet) 2.5 MG-0.025 MG TABLET 4 TAB PO BID DIARRHEA (Reported) Ferrous Sulfate 325 MG (65 MG IRON) TABLET 1 TAB PO DAILY SUPPLEMENT ( Reported) Hydromorphone HCl (Dilaudid) 2 MG TABLET 1 TAB PO BIDP PRN pain Lisinopril 5 MG TABLET 1 TAB PO DAILY HEART (Reported) Ondansetron (Zofran Odt) 4 MG TAB.RAPDIS 1 TAB SL TID PRN nausea Opium Tincture 10 MG/ML (MORPHINE) TINCTURE 0.8 ML PO 4XDP PRN UNKNOWN ( Reported) Potassium Chloride (K-Tab ER) 20 MEQ TABLET.ER 1 TAB PO Q24 low k Vitamin E (Unknown Strength) CAPSULE (Unknown Dose) PO DAILY VITAMIN SUPPORT (Reported) Zolpidem Tartrate 5 MG TABLET 1 TAB PO QPM SLEEP (Reported) Past History Travel History Traveled to [place] past 21 day No Medical History Neurological: NONE EENT: LT.EYE ENUCLEATION Cardiovascular: hypertension Respiratory: pulmonary embolism (- and DVT s/p completion of AC) Gastrointestinal: umbilical hernia, SMALL BOWEL OBSTRUCTIONS Hepatic: NONE Renal: NONE Musculoskeletal: osteoarthritis, BUNIONS Psychiatric: NONE Endocrine: NONE Blood Disorders: NONE Cancer(s): colon/rectal cancer (s/p chemo, xrt, resection), CHEMO/RADIATION [employer]/Reproductive: miscarriage, OOPHORECTOMY History of MRSA: No History of VRE: No History of CDIFF: No Surgical History Surgical History: colon resection (2001), hysterectomy, right subclavian Port-A- C enucleation LEFT eye bunions ileostomy reversal 2003 laparotomy, lysis of adhesions, revision of anastomosis, ventral hernia repair 01/11/15 ILEECTOMY, LYSIS OF ADHESION Past Family/Social History Family History Relations & Conditions if any MOTHER FH: CAD (coronary artery disease) FH: ovarian cancer FATHER FH: CAD (coronary artery disease) FATHER (CAD s/p bipass age 69). BROTHER Psychosocial History Who Do You Live With? child Services at Home: None ETOH Use: occasional use Illicit Drug Use: denies illicit drug use Functional Ability ADLs Independent: dressing, eating, toileting, bathing. IADLs Independent: shopping, housework, finances, food prep, telephone, transportation , medication admin. Review of Systems Review of Systems Constitutional: Denies: chills, diaphoresis, fever. EENTM: Denies: visual changes. Cardiovascular: Reports: chest pain, palpitations. Respiratory: Denies: cough, hemoptysis. GI: Reports: abdominal pain, diarrhea, nausea, vomiting. Denies: bloody stool. Genitourinary: Denies: dysuria. Exam & Diagnostic Data Last 24 Hrs of Vital Signs/I&O Vital Signs Date Time Temp Pulse Resp B/P B/P Pulse O2 O2 Flow FiO2 Mean Ox Delivery Rate 02/14 2205 99.4 76 22 180/105 98 Room Air 02/14 2155 170/110 02/14 2124 98.1 81 20 164/72 99 Room Air 02/14 1824 98.7 75 19 122/75 94 Room Air 02/14 1610 142/90 02/14 1516 97.8 56 18 168/74 94 Room Air 02/14 1335 96 Room Air Room Air 02/14 1313 99.0 80 22 188/102 96 Room Air Intake & Output 02/15 0800 02/15 0000 02/14 1600 Intake Total 0 1000 Output Total 0 Balance 0 1000 Intake, IV 1000 Intake, Oral 0 Output, Urine 0 Patient 100 lb 99 lb 15.99 oz Weight Weight Reported by Patient Measurement Method Physical Exam General Appearance Alert, Oriented X3, Cooperative, Moderate Distress Skin No Rashes, No Breakdown, No Significant Lesion Skin Temp/Moisture Exam: Warm/Dry Sepsis Skin Exam (color): Normal for Ethnicity HEENT Atraumatic, PERRLA, Mucous Membr. moist/pink Neck Supple, No LAD Cardiovascular Regular Rate, Normal S1, Normal S2, No Murmurs Lungs Clear to Auscultation, Normal Air Movement Abdomen Normal Bowel Sounds, Soft, No Tenderness, No Hepatospenomegaly, No Masses Neurological Sensation Intact, Cranial Nerves 3-12 NL Extremities Normal Pulses Vascular Normal Pulses Diagnostic Data Other Results XR PORTABLE ABDOMEN IMPRESSION: Gas is seen within nondilated stomach, small bowel, and colon. Of note, only an AP supine view of the abdomen was ordered and obtained. This technique has limited sensitivity for identifying pneumoperitoneum or air-fluid levels to suggest obstruction. CT ABDOMEN AND PELVIS WITH CONTRAST 02/13 IMPRESSION: No evidence for bowel obstruction. Assessment/Plan Assessment: pt is a 67 yo female with pmh significant for of stage III rectal carcinoma s/p resection, chemotherapy, and radiation, with radiation proctitis, multiple small bowel obstructions, s/p surgery ileocecectomy and lysis, cardioversion, htn, osteoarthritis. She presented to the ED c/o chest pain, abdominal pain, and vomiting. She describes the chest pain as a pressure like pain with associated SOB and anxiety. She presented to the ED yesterday with the same complaints, was given zofran and pain medication and left feeling better. She reports that the pain today is worse. #nausea, vomiting, and abdominal pain Pt reports having upwards of 30 episodes of vomiting today, decreased PO intake for 2-3 days. Of note, the nurses report that she has not vomited since presentation, but she does claim to be extremely nauseas. Pt claims that dilaudid 2mg is the only medicaiton that helps with the pain, claims 1 mg or percocet does not reduce the pain. Normal abd exam, but pt has hx of multiple SBO and bowel surgeries. - Pt to be observed on the [facility] floor - NPO - IVF 75 ml/hr - IV pantoprazole 40 mg daily - 2 mg dilaudid for severe pain, 1 mg dilaudid for moderate pain - Consult surgery #chest pain Pt describes pain as pressure-like, nonradiating in the presence of SOB, but admits to being very anxious. CT chest done yesterday did not show PE, normal first ecg and troponin (<0.01) make ACS unlikely - repeat ECG and troponins x2 to rule out ACS #DVT prophylaxis - lovenox #Code status - Full Code As Ranked By This Provider Problem List: 1. Abdominal pain 2. Nausea and vomiting Core Measures/Miscellaneous Acute Coronary Syndrome ACS Diagnosis: No Cerebrovascular Accident CVA/TIA Diagnosis: No Congestive Heart Failure CHF Diagnosis: No VTE (View Protocol) VTE Risk Factors: Age > 40 No [facility] VTE prophylaxis d/t: No contraindications No VTE Pharm Prophylaxis d/t: No contraindications VTE Diagnosis: No VTE Type: NONE VTE Confirmed by (Test): NONE Sepsis (View Protocol) Severe Sepsis Present: No Septic Shock Septic Shock Present: No Miscellaneous Documentation Attending Case Discussed With: KRISTINA BISHOP MD Primary Care Physician: JONO RAO MDBHA Patient sees these Specialists NA Level of Patient Care: General Medicine Consults Needed: Consulting Specialty: General Surgery KRISTINA BISHOP 02/14/17 7784: Attending MD Review Statement Attending Statement Attending MD Statement: examined this patient, discuss w/resident/PA/DINING ROOM MAID, agreed w/resident/PA/DINING ROOM MAID, reviewed EMR data (avail), reviewed images, amended to note Attending Assessment/Plan: CC: Nausea vomiting, abdominal pain, chest pain PMH: Rectal cancer S/P colon resection and ileostomy reversal, chemotherapy, radiation, history of small bowel obstruction S/P resection, history of adhesion lysis, history of radiation proctitis, pulmonary embolism Patient was in ER yesterday for abdominal pain, chest pain, nausea vomiting. She was symptomatically treated after her CT abdomen and CT chest was unremarkable. Patient was discharged home after symptom control. Patient woke up with similar complaints again this morning, with persistent nausea, vomiting, diffuse abdominal pain, substernal chest pain. She had vomited 10 times, nonbloody. Continuous nausea. Abdominal pain is diffuse, she cannot point her finger to any particular area, nonradiating, no constipation or diarrhea, passing flatness, last bowel movement yesterday, no blood in stool. She also has substernal chest pain, nonradiating. Patient had been having similar complaints off-and-on since long time. Vitals: Unremarkable except blood pressure at arrival was 188/102 improved to 142/90. On exam: A O 3, cachectic, cooperative, distress due to pain, neck supple, JVD normal, no lymphadenopathy, mucosa moist, no focal neurological deficit, no dependent edema, no obvious skin rashes or inflammation CVS: S1-S2, RRR. RS: Clear to auscultate bilaterally. Abdomen: Soft, mild tenderness, no guarding or rigidity, ND, bowel sounds present. Peripheral pulses perfusion normal. Labs: CBC, BMP, LFT, troponin unremarkable, alkaline phosphatase 131, lipase 124 Patient had mild hypokalemia yesterday which resolved, patient had some urine ketones yesterday which resolved. EKG : unremarkable X-ray abdomen: Gas is seen within nondilated stomach, small bowel, and colon. Of note, only an AP supine view of the abdomen was ordered and obtained. This technique has limited sensitivity for identifying pneumoperitoneum or air-fluid levels to suggest obstruction. CTA chest: 1. No pulmonary embolism identified. Limited evaluation of subsegmental vessels in the lower lobes due to artifact. 2. Airways disease in the right middle lobe with possible mucoid impaction. CT ABD & PELVIS W IV CONTRAST: No evidence for bowel obstruction A and P 67-year-old female with a past medical history significant for multiple abdominal surgeries, abdominal adhesions and history of adhesion lysis, history of small bowel obstruction and multiple hospitalization for complaints of nausea , vomiting, abdominal pain. Patient comes back again with a similar complaints yesterday and today to ER along with chest pain. Vitals and complete physical examination unremarkable except patient appears cachectic and mild distress due to pain. She states that she has vomited several times today but according to nursing staff no vomiting since that time she is in ER. She is passing gas, bowel sounds present, not hyperactive. Abdominal pain can be secondary to her chronic adhesions. Gastroenteritis, gastritis are possibilities for nausea vomiting and abdominal pain. Chest pain which is retrosternal, nonradiating, atypical for cardiac origin, patient had CTA yesterday which is negative for pulmonary embolism. + Intractable abdominal pain + Recurrent vomitings with nausea + History of Rectal cancer S/P colon resection and ileostomy reversal, chemotherapy, radiation, history of small bowel obstruction S/P resection, history of adhesion lysis, history of radiation proctitis - Place in observation medical floor for Abdo pain N/ V r/o sbo - Continue gentle hydration - NPO - When necessary Zofran or Phenergan for nausea and vomiting - Adequate pain control with narcotics - EKG and Troponin X2 - Obtain U tox - Repeat chest x-ray PA lateral in a.m. - Incentive spirometry - hold all home meds, repeat BP after Dilaudid, if persistently high then give lisinopril - Surgical consult in a.m. - DVT prophylaxis with Lovenox GABY HOLMAN,KORI 02/14/17 2313: Resident Review Statement Resident Statement: examined this patient, discussed with purchasing intern, agreed with purchasing intern, reviewed EMR data (avail), discussed with nursing, reviewed images Other Findings: 67 -year-old female with past medical history of stage III rectal carcinoma status post resection/chemotherapy/radiation, with radiation enteritis, multiple small bowel obstructions, status post surgery ileocecectomy and additional lysis in 2014, hypertension, osteoarthritis, with the emergency department visit yesterday presented to the emergency department today again for similar complaints of nausea, vomiting, abdominal pain since a day. Patient complains of intractable nausea, and bilious non-bloody vomiting "30" times today and not be able to hold anything, associated with upper abdominal pain. Patient gives a similar history of abdominal pain, and multiple admissions for small bowel obstruction, but does not have constipation/obstipation, abdominal distention this time. She does admit to anxiety, chest heaviness, but denies any fever, chills, chest pain, leg swelling, eating outside, sick contacts. Of note, the old when patient presented to the ED, her blood pressure was 182/ 102 and pulse 86, which normalized to pressure 122/75 with pulse 75. In the general medical floor, her blood pressure was 180/108 with pulse rate of 80. Rest of vitals were normal with MAXIMUM TEMPERATURE of 99. When she presented to the ED yesterday potassium was 2.9 which was repleted to 3.3. CBC today: WBC 8.6, H&H 13.7/42.2, platelets 443, sodium 141 potassium 3.6, BUN 16, creatinine 0.5, lactic acid 1.4, alkaline phosphatase 131, rest of the liver enzymes normal , troponin 0.01, with normal-looking EKG with rate 18, and normal intervals, no ST-T changes. The patient received ondansetron IV, and then IV promethazine, IV Dilaudid, IV PPI, and normal saline 1 L in the emergency department. Patient is currently being observed in the general medical floor for the management following issues: #Intractable nausea/vomiting and abdomen pain Patient has intractable nausea, although the nursing staff reported that the patient doesn't have vomiting since she presented to the emergency department. Given her readmission to the emergency department, she warrants closer observation and management for the same issue. Her lab values currently appear benign, but will require a repeat check. She requires IV fluids until she can have anything by mouth. Rule out another episode of small bowel obstruction. * Nothing by mouth for now. Reassess diet orders in AM. * IV fluids running at 75 mL per hour, monitor for now, to be reassessed in the morning * IV pantoprazole 40 mg daily * Adequate pain management. Of note patient mentioned that Percocet doesn't help her and Dilaudid 2 mg is the only medication that helps her with the pain. She is being given 2 mg of IV Dilaudid for severe pain, and 1 mg of IV Dilaudid for moderate pain. We can reassess the pain medications in the morning again. * Consult surgical team in the morning, re: pain abdomen/nausea/vomitting, in the setting of recurrent small bowel obstruction. #Chest discomfort Patient complained of new onset (2 days) complain of chest heaviness, but denies chest pain, shortness of breath. PE was ruled out with yesterday's CT angiogram. The first set of troponin and EKG does not indicate ACS, but the acuity of symptoms and the patient having chest discomfort with nausea, vomiting warrants to rule out ACS. * Repeat is troponin and EKG x3 total, to rule out ACS #We are holding her home medication which are mostly supplements for now. Lisinopril needs to be reconsidered tomorrow, given her aberrant blood pressure readings. #Diet: Nothing by mouth for now #DVT prophylaxis: Lovenox #CODE STATUS: Full code
[2017-02-14 21:55] VITALS: BP 170/110
[2017-02-14 22:05] VITALS: BP 180/105
[2017-02-15 03:42] VITALS: BP 122/68
--- NOTE | 2017-02-15 03:46 | Event Note ---
Event Note Event Note: Subjective: I was informed by the nursing staff that the patient's troponin was high (2.09) and a repeat test was being done by the lab personnel in the same sample. Objective: Patient was resting comfortably in bed, vitals stable, no complaints. Previous complaints of chest heaviness was no longer present, and so did nausea and abdominal pain. However, troponin was reported to be 2.09 (repeat value). Vitals - BP: 122/68, pulse 74, afebrile, normal breathing on room air. Assessment and Plan: Given her gender (female), mild epigastric pain in the beginning, chest heaviness (which now has resolved), atypical ACS is still a possibility. Attending notified who agrees to the possibility and the acuity of the situation. * Transfer patient to ICU for continous closer monitoring. * ASA 325 mg PO STAT * She was asymptomatic, thus did not warrant nitroglycerin, also considering her fluctuating blood pressure. * Guaiac test was done, which was negative. * Patient was started on IV heparin after consulting with light cleaner on-call Juan Sanchez MD. update 5:30 AM: patient was received in ICU, VS stable, IV blous 2500 heparin given and IV heparin drip started. OBS changed to admission.
[2017-02-15 08:00] VITALS: BP 116/76
[2017-02-15 08:23] LABS: ABSOLUTE BASOPHIL COUNT 0 /CUMM (0.0-0.2); ABSOLUTE EOSINOPHIL COUNT 0.1 /CUMM (0.0-0.7); ABSOLUTE GRANULOCYTE CT 5.4 /CUMM (1.4-6.5); BASOPHIL % 0.4 % (0.0-2.0); EOSINOPHIL % 0.8 % (0-5); GRANULOCYTE % 63.3 % (42.2-75.2); HEMATOCRIT 38.2 % (37-47); MEAN CORPUSCULAR HGB 26.5 PG (27.0-31.0); MEAN CORPUSCULAR HGB CONC 32.2 G/DL (33.0-37.0); MEAN CORPUSCULAR VOLUME 82.3 FL (81.0-99.0); MEAN PLATELET VOLUME 9.3 FL (7.4-10.4); PLATELET COUNT 375 /CUMM (130-400); RBC DISTRIBUTION WIDTH 14.3 % (11.5-14.5); RED BLOOD CELL CT 4.64 /CUMM (4.20-5.40); WHITE BLOOD CELL COUNT 8.6 /CUMM (4.8-10.8)
--- NOTE | 2017-02-15 09:36 | RADIOLOGY REPORT ---
EXAMINATION: XR CHEST CLINICAL INFORMATION: Vomiting and chest discomfort. Evaluate for aspiration pneumonia. COMPARISON: Previous chest CT 02/13/2017 and chest x-rays most recent July 2016 TECHNIQUE: 2 views of the chest were obtained. FINDINGS: The cardiac and mediastinal contours are stable. The lungs are well inflated. There is a nodule at the left lateral costophrenic angle probably representing a nipple shadow. The lungs are otherwise clear without evidence of a pneumonia. There is blunting of the left posterior costophrenic angle suggestive of small left pleural effusion or pleural thickening. There are degenerative changes of the spine. There are degenerative changes at the left shoulder joint. There are periarticular ossifications at the right shoulder joint. IMPRESSION: No evidence of pneumonia. Blunting of the left posterior costophrenic angle suggestive of small pleural effusion or pleural thickening.
--- NOTE | 2017-02-15 10:57 | PN- Housestaff ---
KINSEY HOLMAN,KRISTY 02/15/17 1000: Subjective Follow-up For: n/v elevated troponin Subjective: Seen and examined at bedside. She is laying comfotably in bed using her cell phone. She does not endorse any nausea/vomiting during o/n course. She no longer complain of chest pain. Review of Systems Constitutional: Reports: see HPI. Objective Last 24 Hrs of Vital Signs/I&O Vital Signs Date Time Temp Pulse Resp B/P B/P Pulse O2 O2 Flow FiO2 Mean Ox Delivery Rate 02/15 0600 98 Room Air 02/15 0342 74 122/68 02/14 2205 99.4 76 22 180/105 98 Room Air 02/14 2155 170/110 02/14 2124 98.1 81 20 164/72 99 Room Air 02/14 1824 98.7 75 19 122/75 94 Room Air 02/14 1610 142/90 02/14 1516 97.8 56 18 168/74 94 Room Air 02/14 1335 96 Room Air Room Air 02/14 1313 99.0 80 22 188/102 96 Room Air Intake & Output 02/15 1600 02/15 0800 02/15 0000 Intake Total 0 Output Total 0 Balance 0 Intake, Oral 0 Output, Urine 0 Patient 45.813 kg 45.359 kg Weight Weight Bed scale Measurement Method Physical Exam General Appearance: Alert, Oriented X3, Cooperative, No Acute Distress Cardiovascular: Regular Rate, Normal S1, Normal S2 Lungs: Clear to Auscultation, Normal Air Movement Abdomen: Normal Bowel Sounds, Soft, No Tenderness Neurological: Normal Speech, Normal Tone, Sensation Intact Extremities: No Clubbing, No Cyanosis, No Edema Vascular: Pulses Symmetrical Assessment/Plan Assessment: This is a 67 yo female with pmh significant for of stage III rectal carcinoma s/p resection, chemotherapy, and radiation, with radiation proctitis, multiple small bowel obstructions, s/p surgery ileocecectomy and lysis, cardioversion, htn, osteoarthritis, presented to the ED c/o chest pain, abdominal pain, and vomiting. She describes the chest pain as a pressure like pain with associated SOB and anxiety. She had presented to the ED a day earlier with the same complaints, was given zofran and pain medication and left feeling better. She then to return back as her symptoms had not resolved. She was admitted to [facility] for evaluation and management of possible sbo vs gastroenteritis (CT/ABD done on 02/13 was unremarkable for any signs of SBO or any other acute abdominal pathology). Earlier in the morning today, pt was found to have elevated troponins (they were being trended) and EKG changes suggested some ischemic changes. She was started on Heparin drip and antiplatelet therapy per ACS protocol and transferred to ICU. Impression * ACS/probable minimal STEMI. Pt has positive family hx of CAD (Dad-CABG at 60). Initial elevation of troponin with the next one showing a downward trend (2.09-- -1.26). Serial EKG shows some suggestion of ischemic changes including q waves with loss of QRS progression in inferior leads. * Gastroeneteritis. currently resolved. Most likely 2/2 to [place]. Less likely from SBO. Even though patient has an extensive hx abdominal pmhx includig MARCELLA, resection from CA, and multiple SBOs, her CT ABD was unremrkable, her symptoms have resolved, and she is passing flatus and has positve active bowel sounds * Hx of Hypertension Plan Conitnue ICU monitoring Continue trending trops and EKG Continue medical management of ACS/STEMI with Heparin drip, ASA, statin. Given borderline BP, will hold off beta lars for now. Will await echo result, if wall motion abnormalities,patient will eventually need Cardiac cath in the near future. She is currently stable with downtrending trops and not complaint of chest pain or shortness of breath. Electrolyte replenishment. Will advance diet to clear liquids for now. Will consider surgical consult if GI symptoms re-occur/worsen. Problem List: 1. Vomiting 2. Myocardial infarction Pain Ratin Pain Location: none Pain Goal: Remain pain free Pain Plan: per pathway Tomorrow's Labs & Rationales: icu bundle Consulting Request: Consulting Specialty: General Surgery PASQUALE HOLMAN,AMIR 02/15/17 1224: Attending MD Review Statement Attending Statement Attending MD Statement: examined this patient, discuss w/resident/PA/HIM CLERK, agreed w/resident/PA/HIM CLERK, reviewed EMR data (avail), discussed with nursing Attending Assessment/Plan: Ms. Oropeza was seen and evalauted by me. Chart reviewed. Currently denies CP. Nausea improved. VSS GEN: pleasant thin lady, AAOx3 HEENT: moist mucosa LUNGS: CTAB HEART: s1s2 ABD: s1s2 EXT: no edema Labs/Diagnostics: reviewed. Trop's now trending down, low K/Mag A/P: -- Cards: likely STEMI as per cardilogy -- trend trops, cont Oxygen, Statin, Heparin gtt -- replete lytes -- rest of the plan as per resident's note
--- NOTE | 2017-02-15 11:21 | Cons- Cardiology ---
General Information and HPI Consulting Request Date of Consult: 02/15/17 Requested By: KRISTINA BISHOP MD Reason for Consult: Chest pain. Source of Information: patient, old records Exam Limitations: no limitations History of Present Illness: Mrs. Pavithra Oropeza is a 67-year-old female with a history of rectal carcinoma status post resection, chemotherapy, and radiation therapy 2001 -2002, hypertension, and a strong family history for coronary artery disease ( father s/p CABG in his early 60s) who presented to the ED 2 over the weekend , first on Thursday (02/13/2017) with nausea/vomiting and nothing by mouth/ abdominal pain/clamminess times 48 hours which improved after she was given Zofran and Dilauded with subsequent discharge and again on Thursday (02/14/2017) after she ate on arriving home with recurrent nausea/vomiting/abdominal pain, went to bed and was awakened around 6 a.m. not only with the nausea/vomiting/ abdominal pain but also severe ("10/10") chest pressure and shortness of breath that ultimately prompted return to the ED. She was again treated with Zofran and Dilauded, but the chest pain persisted and her troponin returned positive. I was contacted at 4:30 a.m. and discussed management with the warehouse order selector at that time after learning that Mrs. Oropeza was chest pain-free. She has, fortunately, remained chest pain-free since that time. Allergies/Medications Allergies: Coded Allergies: NO KNOWN ALLERGIES (09/07/15) Home Med List: Ascorbate Calcium (Vitamin C) 500 MG TABLET 1 TAB PO DAILY VITAMIN SUPPORT ( Reported) Bacillus Coagulans/Inulin (Probiotic Formula Capsule) 1 BILLION CELL-250 MG CAPSULE 1 CAP PO DAILY GI (Reported) [BLACK SERNA] 1 CAP PO DAILY SUPPLEMENT (Reported) Calcium Carbonate/Vitamin D3 (Os-Cachorro 500+D3 Caplet) 500 MG-200 TABLET 1 TAB PO DAILY VITAMIN SUPPORT (Reported) Cholecalciferol (Vitamin D3) 1,000 UNIT TABLET 1 TAB PO DAILY VITAMIN SUPPORT (Reported) Cranberry Extract (Cranberry) (Unknown Strength) CAPSULE (Unknown Dose) PO DAILY SUPPLEMENT (Reported) Cyanocobalamin (Vitamin B-12) (Unknown Strength) TABLET (Unknown Dose) PO DAILY VITAMIN SUPPORT (Reported) Diphenoxylate HCl/Atropine (Lomotil 2.5-0.025 MG Tablet) 2.5 MG-0.025 MG TABLET 4 TAB PO BID DIARRHEA (Reported) Ferrous Sulfate 325 MG (65 MG IRON) TABLET 1 TAB PO DAILY SUPPLEMENT ( Reported) Hydromorphone HCl (Dilaudid) 2 MG TABLET 1 TAB PO BIDP PRN pain Lisinopril 5 MG TABLET 1 TAB PO DAILY HEART (Reported) Ondansetron (Zofran Odt) 4 MG TAB.RAPDIS 1 TAB SL TID PRN nausea Opium Tincture 10 MG/ML (MORPHINE) TINCTURE 0.8 ML PO 4XDP PRN UNKNOWN ( Reported) Potassium Chloride (K-Tab ER) 20 MEQ TABLET.ER 1 TAB PO Q24 low k Vitamin E (Unknown Strength) CAPSULE (Unknown Dose) PO DAILY VITAMIN SUPPORT (Reported) Zolpidem Tartrate 5 MG TABLET 1 TAB PO QPM SLEEP (Reported) Review of Systems Review of Systems: A 14 point system review was obtained and was noncontributory, other than as above. 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 BROTHER Psychosocial History Who Do You Live With? child Services at Home: None Smoking Status: Never Smoked ETOH Use: occasional use Illicit Drug Use: denies illicit drug use Functional Ability ADLs Independent: dressing, eating, toileting, bathing. IADLs Independent: shopping, housework, finances, food prep, telephone, transportation , medication admin. Exam & Diagnostic Data Vital Signs and I&O Vital Signs Date Time Temp Pulse Resp B/P B/P Pulse O2 O2 Flow FiO2 Mean Ox Delivery Rate 02/15 0600 98 Room Air 02/15 0342 74 122/68 02/14 2205 99.4 76 22 180/105 98 Room Air 02/14 2155 170/110 02/14 2124 98.1 81 20 164/72 99 Room Air 02/14 1824 98.7 75 19 122/75 94 Room Air 02/14 1610 142/90 02/14 1516 97.8 56 18 168/74 94 Room Air 02/14 1335 96 Room Air Room Air 02/14 1313 99.0 80 22 188/102 96 Room Air Intake & Output 02/15 1600 02/15 0800 02/15 0000 02/14 1600 02/14 0800 02/14 0000 Intake Total 0 1000 Output Total 0 Balance 0 1000 Intake, IV 1000 Intake, Oral 0 Output, Urine 0 Patient 101 lb 100 lb 99 lb 15.99 oz Weight Weight Bed scale Reported by Patient Measurement Method Physical Exam: Well-developed, well-nourished female in no acute distress with nasal oxygen in place. Vital signs: See above. HEENT: Normocephalic, atraumatic, and slightly dry mucous membranes. Neck: JVD, no bruits. Lungs: Clear to auscultation bilaterally. Heart: S1, S2 with no murmur, gallop, or rub appreciated. PMI fifth ICS at MCL. Abdomen: Soft, nontender, positive bowel sounds. Extremities: No cyanosis, clubbing, or edema. Labs/Gilbert Results: Laboratory Tests 02/15 02/15 02/14 0630 0025 1626 Chemistry Sodium (137 - 145 mmol/L) 138 Potassium (3.5 - 5.1 mmol/L) 3.1 L Chloride (98 - 107 mmol/L) 99 Carbon Dioxide (22 - 30 mmol/L) 27 Anion Gap (5 - 16) 11 BUN (7 - 17 mg/dL) 17 Creatinine (0.5 - 1.0 mg/dL) 0.5 Estimated GFR (>60 ml/min) > 60 BUN/Creatinine Ratio (7 - 25 %) 34.0 H Lactic Acid Cancelled Magnesium (1.6 - 2.3 mg/dL) 1.5 L Troponin I (< 0.11 ng/ml) 1.26 *H 2.09 *H Hematology CBC w Diff NO MAN DIFF REQ WBC (4.8 - 10.8 /CUMM) 8.6 RBC (4.20 - 5.40 /CUMM) 4.64 Hgb (12.0 - 16.0 G/DL) 12.3 Hct (37 - 47 %) 38.2 MCV (81.0 - 99.0 FL) 82.3 MCH (27.0 - 31.0 PG) 26.5 L RDW (11.5 - 14.5 %) 14.3 Plt Count (130 - 400 /CUMM) 375 MPV (7.4 - 10.4 FL) 9.3 Gran % (42.2 - 75.2 %) 63.3 Lymphocytes % (20.5 - 51.1 %) 23.9 Monocytes % (1.7 - 9.3 %) 11.6 H Eosinophils % (0 - 5 %) 0.8 Basophils % (0.0 - 2.0 %) 0.4 Absolute Granulocytes (1.4 - 6.5 /CUMM) 5.4 Absolute Lymphocytes (1.2 - 3.4 /CUMM) 2.0 Absolute Monocytes (0.10 - 0.60 /CUMM) 1.0 H Absolute Eosinophils (0.0 - 0.7 /CUMM) 0.1 Absolute Basophils (0.0 - 0.2 /CUMM) 0 PUBS MCHC (33.0 - 37.0 G/DL) 32.2 L 02/14 02/14 1400 1340 Chemistry Sodium (137 - 145 mmol/L) 141 Potassium (3.5 - 5.1 mmol/L) 3.6 Chloride (98 - 107 mmol/L) 98 Carbon Dioxide (22 - 30 mmol/L) 30 Anion Gap (5 - 16) 13 BUN (7 - 17 mg/dL) 16 Creatinine (0.5 - 1.0 mg/dL) 0.5 Estimated GFR (>60 ml/min) > 60 BUN/Creatinine Ratio (7 - 25 %) 32.0 H Glucose (65 - 99 mg/dL) 128 H Lactic Acid (0.7 - 2.1 mmol/L) 1.4 Calcium (8.4 - 10.2 mg/dL) 10.2 Total Bilirubin (0.2 - 1.3 mg/dL) 1.0 AST (14 - 36 U/L) 21 ALT (9 - 52 U/L) 29 Alkaline Phosphatase (<127 U/L) 131 H Troponin I (< 0.11 ng/ml) < 0.01 C-Reactive Prot, Quant (<1.0 mg/dL) < 0.5 Total Protein (6.3 - 8.2 g/dL) 7.4 Albumin (3.5 - 5.0 g/dL) 4.6 Globulin (1.9 - 4.2 gm/dL) 2.8 Albumin/Globulin Ratio (1.1 - 2.2 %) 1.6 Lipase (23 - 300 U/L) 124 Hematology CBC w Diff NO MAN DIFF REQ WBC (4.8 - 10.8 /CUMM) 8.6 RBC (4.20 - 5.40 /CUMM) 5.12 Hgb (12.0 - 16.0 G/DL) 13.7 Hct (37 - 47 %) 42.2 MCV (81.0 - 99.0 FL) 82.4 MCH (27.0 - 31.0 PG) 26.8 L RDW (11.5 - 14.5 %) 14.6 H Plt Count (130 - 400 /CUMM) 443 H MPV (7.4 - 10.4 FL) 8.3 Gran % (42.2 - 75.2 %) 77.1 H Lymphocytes % (20.5 - 51.1 %) 15.0 L Monocytes % (1.7 - 9.3 %) 7.1 Eosinophils % (0 - 5 %) 0.5 Basophils % (0.0 - 2.0 %) 0.3 Absolute Granulocytes (1.4 - 6.5 /CUMM) 6.6 H Absolute Lymphocytes (1.2 - 3.4 /CUMM) 1.3 Absolute Monocytes (0.10 - 0.60 /CUMM) 0.6 Absolute Eosinophils (0.0 - 0.7 /CUMM) 0 Absolute Basophils (0.0 - 0.2 /CUMM) 0 PUBS MCHC (33.0 - 37.0 G/DL) 32.5 L Toxicology Urine Opiates Screen (>2000 NG/ML) 277.00 Methadone Screen (>300 NG/ML) < 40 Barbiturate Screen (>200 NG/ML) < 60 Ur Phencyclidine Scrn (>25 NG/ML) < 6.00 Amphetamines Screen (>1000 NG/ML) < 100 U Benzodiazepines Scrn (>200 NG/ML) < 85 Urine Cocaine Screen (>300 NG/ML) < 50 Urine Cannabis Screen (>50 NG/ML) < 5.00 Urines Urine Color (YEL,AMB,STR) YEL Urine Clarity (CLEAR) CLEAR Urine pH (5.0 - 8.0) 7.0 Ur Specific Levels (1.001 - 1.035) 1.010 Urine Protein (NEG,<30 MG/DL) NEG Urine Ketones (NEG) NEG Urine Nitrite (NEG) NEG Urine Bilirubin (NEG) NEG Urine Urobilinogen (0.1 - 1.0 EU/dl) 0.2 Ur Leukocyte Esterase (NEG) NEG Ur Microscopic SEDIMENT EXAMINED Urine RBC (0 - 5 /HPF) 1-3 Urine WBC (0 - 2 /HPF) RARE Ur Epithelial Cells (NONE,FEW) RARE Urine Bacteria (NEG/NONE) FEW H Urine Hemoglobin (NEG) TRACE-INTACT Urine Glucose (N MG/DL) NEG Diagnostic Data EKG Results (02/15/2017) sinus rhythm, probable indeterminate age inferior wall myocardial infarction with loss of R wave in leads III, aVF and slightly less subtle ST elevated in the inferior leads. CXR Results (02/15/2017): No evidence of pneumonia. Blunting of the left posterior costophrenic angle suggestive of small pleural effusion or pleural thickening. Assessment/Plan Assessment/Plan Probable small STEMI in this female with a history of hypertension and family history for coronary artery disease with small troponin bump that is trending downward. Fortunately, she remains chest discomfort free at this time. Recommendations: * Continue ICU monitoring follow-up troponins, follow-up electrocardiograms. * Scheduled for echocardiogram to assess left ventricular function, degree of left ventricular hypertrophy given history hypertension, segmental of wall motion abnormalities, etc. * Continue antiplatelet therapy and anticoagulation. Continue to check all stools for occult blood. * Reasonable to start on statin. * Blood pressure remains borderline so no role, at this juncture for ZION inhibitor or beta lars, etc. * Replete potassium and magnesium. * Check free T4, TSH, and glycosylated hemoglobin A1c. * Ultimately, would recommend cardiac catheterization with an eye towards revascularization. * DVT prophylaxis being addressed by anticoagulation for her acute coronary syndrome. Further recommendations will follow, Thank you. Consult Acknowledgment - Thank you for your consult request.
--- NOTE | 2017-02-15 13:57 | ECHOCARDIOGRAM REPORT ---
DILIP BUCHANAN Age: 67 : 1950 Gender: F Exam Date: 02/15/2017 09:08 Exam Location: [facility] Ht (in): 63 Wt (lb): 100 BSA: 1.41 BP: 122 / 68 Ordering Physician: JULIETTE LERNER MD Referring Physician: Juan Sanchez MD Technologist: Norma Grubbs [facility] Room Number: [id number] Indications: CHEST PAIN Rhythm: Sinus Technical Quality: Fair FINDINGS Left Ventricle Normal size left ventricle. Mild concentric left ventricular hypertrophy. Mild hypokinesis of basal inferior wall and proximal portion of mid inferior wall. No other obvious regional wall motion abnormalities. Normal left ventricular ejection fraction visually estimated at > 65%. "pseudonormal" filling pattern of the left ventricle for age (stage 2 diastolic dysfunction). Right Ventricle Normal right ventricular size and function. Right Atrium Normal right atrial size. Left Atrium Normal left atrial size. Mitral Valve Mitral valve mildly thickened. Trace mitral regurgitation. Aortic Valve Trileaflet aortic valve. Minimal aortic sclerosis. No aortic stenosis. Trace aortic regurgitation. Tricuspid Valve Structurally normal tricuspid valve. Mild tricuspid regurgitation. Right ventricular systolic pressure estimated at 34 mmHg. Pulmonic Valve Pulmonic valve not well visualized, grossly normal. No pulmonic regurgitation. Pericardium No pericardial effusion. Great Vessels Normal size aortic root. CONCLUSIONS Normal size left ventricle. Mild concentric left ventricular hypertrophy. Mild hypokinesis of basal inferior wall and proximal portion of mid inferior wall. No other obvious regional wall motion abnormalities. Normal left ventricular ejection fraction visually estimated at > 65%. "pseudonormal" filling pattern of the left ventricle for age (stage 2 diastolic dysfunction). Normal right ventricular size and function. Normal atrial size. Trace mitral regurgitation. Trace aortic regurgitation. Mild tricuspid regurgitation. Right ventricular systolic pressure estimated at 34 mmHg. Juan Sanchez M.D. (Electronically Signed) Final Date: 15 February 2017 13:56 MEASUREMENTS (Male / Female) Normal Values 2D ECHO LV Diastolic Diameter PLAX 3.4 cm 4.2 - 5.9 / 3.9 - 5.3 cm LV Systolic Diameter PLAX 2.1 cm 2.1 - 4.0 cm LV Fractional Shortening PLAX 38.2 % 25 - 46 % LV Ejection Fraction 2D Teich 69.6 % IVS Diastolic Thickness 1.2 cm LVPW Diastolic Thickness 1.2 cm LV Relative Wall Thickness 0.7 RV Internal Dim ED PLAX 2.6 cm 1.9 - 3.8 cm LVOT Diameter 1.9 cm Aortic Root Diameter 3.0 cm LA Systolic Diameter LX 2.3 cm 3.0 - 4.0 / 2.7 - 3.8 cm LA Volume 19.6 cm 18 - 58 / 22 - 52 cm LA Volume Index 13.9 cm/m 16 - 28 cm/m Ascending Aorta Diameter 3.0 cm DOPPLER AV Peak Velocity 112.0 cm/s AV Peak Gradient 5.0 mmHg AV Mean Velocity 76.6 cm/s AV Mean Gradient 3.0 mmHg AV Velocity Time Integral 20.8 cm LVOT Peak Velocity 66.9 cm/s LVOT Peak Gradient 1.8 mmHg LVOT Mean Velocity 50.1 cm/s LVOT Mean Gradient 1.0 mmHg LVOT Velocity Time Integral 17.4 cm LVOT Stroke Volume 49.3 cm AV Area Cont Eq vti 2.4 cm AV Area Cont Eq pk 1.7 cm MV Peak Velocity 71.5 cm/s MV Peak Gradient 2.0 mmHg MV Mean Velocity 38.8 cm/s MV Mean Gradient 1.0 mmHg Mitral E Point Velocity 54.3 cm/s Mitral A Point Velocity 55.8 cm/s Mitral E to A Ratio 1.0 MV PHT Velocity 58.9 cm/s MV Deceleration Conway 225.0 cm/s MV Pressure Half Time 78.5 ms MV Area PHT 2.8 cm MV Deceleration Time 317.0 ms TR Peak Velocity 271.0 cm/s TR Peak Gradient 29.4 mmHg Right Atrial Pressure 5.0 mmHg Pulmonary Artery Systolic Pressu 34.4 mmHg Right Ventricular Systolic Press 34.4 mmHg PV Peak Velocity 88.2 cm/s PV Peak Gradient 3.1 mmHg PV Mean Velocity 56.5 cm/s PV Mean Gradient 1.0 mmHg PV Velocity Time Integral 15.9 cm LV E' Lateral Velocity 5.3 cm/s Mitral E to LV E' Lateral Ratio 10.3 LV E' Septal Velocity 4.1 cm/s Mitral E to LV E' Septal Ratio 13.3
[2017-02-15 14:13] LABS: PTT 38 SEC (25-37)
[2017-02-15 16:00] VITALS: BP 130/80
[2017-02-15 21:05] LABS: PTT 69 SEC (25-37)
[2017-02-16] VITALS: BP 106/58
[2017-02-16 05:38] LABS: ABSOLUTE BASOPHIL COUNT 0.1 /CUMM (0.0-0.2); ABSOLUTE EOSINOPHIL COUNT 0.1 /CUMM (0.0-0.7); ABSOLUTE GRANULOCYTE CT 2.8 /CUMM (1.4-6.5); ABSOLUTE LYMPH COUNT 2.2 /CUMM (1.2-3.4); ABSOLUTE MONOCYTE COUNT 0.6 /CUMM (0.10-0.60); BASOPHIL % 0.9 % (0.0-2.0); EOSINOPHIL % 1.5 % (0-5); HEMATOCRIT 33.3 % (37-47); MEAN CORPUSCULAR HGB 26.8 PG (27.0-31.0); MEAN CORPUSCULAR HGB CONC 32.5 G/DL (33.0-37.0); MEAN CORPUSCULAR VOLUME 82.4 FL (81.0-99.0); MEAN PLATELET VOLUME 8.6 FL (7.4-10.4); PLATELET COUNT 276 /CUMM (130-400); RBC DISTRIBUTION WIDTH 14.6 % (11.5-14.5); RED BLOOD CELL CT 4.05 /CUMM (4.20-5.40); WHITE BLOOD CELL COUNT 5.8 /CUMM (4.8-10.8)
--- NOTE | 2017-02-16 07:38 | PN- Housestaff ---
BECKIE HOLMAN,CLARA 02/16/17 0737: Subjective Follow-up For: Elevated Troponins Abdominal pain Nausea/Vomiting Tele-Events Since Last Visit: No events HR 86-119 BP Sys 86-119 BP Ortega 49-69 O2 96-99% on Room air RR 16-30 Subjective: Patient seen and examined. She is seen lying flat in bed resting comfortably. She appears to be in no acute distress. She reports an episode of nausea this morning for which she received phenergen that resolved her symptoms. She admits that she has had issues with abdominal pain/nausea/vomiting for 'many years' and feels that this is baseline. She otherwise states that she feels well and denies any further chest pain/discomfort or shortness of breath. Review of Systems Constitutional: Reports: see HPI. Objective Last 24 Hrs of Vital Signs/I&O Vital Signs Date Time Temp Pulse Resp B/P B/P Pulse O2 O2 Flow FiO2 Mean Ox Delivery Rate 02/16 0400 97 Room Air 02/16 0000 98.8 68 20 106/58 97 Nasal Cannula 02/16 0000 97 Room Air 02/15 2000 98 Room Air 02/15 1600 100.2 75 18 130/80 98 Room Air 02/15 1121 Room Air Room Air Intake & Output 02/16 1600 02/16 0800 02/16 0000 Intake Total 361 1190 Output Total Balance 361 1190 Intake, IV 191 710 Intake, Oral 170 480 Physical Exam General Appearance: Alert, Oriented X3, Cooperative, No Acute Distress Other Physical Findings: General-well developed, thin elderly woman in no acute distress HEENT-NCAT, PERRL, EOMI, anicteric sclera, moist mucous membranes Cardio-S1, S2 w/o m/g/r; RRR Lung-CTA bilaterally Abdomen-Soft, nontender, nondistended, bowel sounds intact Neuro-Awake and alert, oriented to person/place/time, CN II - XII grossly intact Ext-normal pulses, no cyanosis/clubbing/edema Current Medications: Current Medications Sig/Millicent Start time Last Medication Dose Route Stop Time Status Admin Acetaminophen 650 MG Q6P PRN 02/14 2215 AC PO Aspirin 81 MG DAILY 02/16 1000 AC PO Atorvastatin Calcium 40 MG 1700 02/15 1700 AC 02/15 PO 1612 Diphenoxylate HCl/ 2.5 MG TID PRN 02/15 1245 AC 02/15 Atropine PO 1255 Famotidine 20 MG BID 02/15 1000 AC 02/15 IV 2236 Heparin Sodium 2,748 UNIT ONE ONE 02/15 1432 DC 02/15 (Porcine) IV 02/15 1433 1610 Heparin Sodium 25,000 UNIT Q24H 02/15 0515 AC 02/16 (Porcine) IV 0613 Sodium Chloride 500 ML Hydromorphone HCl 1 MG Q6P PRN 02/14 2315 AC IV Hydromorphone HCl 2 MG Q6P PRN 02/14 2215 AC 02/16 IV 0607 Magnesium Sulfate 1 GM Q2H 02/15 1915 DC 02/15 Dextrose/Water 100 ML IV 02/15 2314 2043 Pantoprazole Sodium 40 MG DAILY 02/15 1000 DC IV Potassium Chloride 10 MEQ Q1H 02/15 2345 DC 02/16 IV 02/16 0046 0214 Potassium Chloride 60 MEQ ONCE ONE 02/15 2345 DC 02/16 PO 02/15 2346 0009 Potassium Chloride 80 MEQ ONCE ONE 02/15 2330 CAN PO 02/15 2331 Potassium Chloride 10 MEQ Q1H 02/15 1000 DC 02/15 IV 02/15 1201 1611 Promethazine HCl 12.5 MG Q4-6 PRN PRN 02/15 0200 AC 02/16 IV 02/22 0159 0513 Sodium Chloride 1,000 ML .[id number] 02/14 2300 DC 02/15 IV 02/15 1219 0157 Last 24 Hrs of Lab/Gilbert Results Last 24 Hrs of Labs/Mics: Laboratory Tests 02/16/17 0500: Anion Gap 6, Estimated GFR > 60, Glucose 88, Calcium 8.9, Phosphorus 2.8, Magnesium 2.2, Total Bilirubin 0.6, AST 16, ALT 29, Albumin 2.8 L, CBC w Diff NO MAN DIFF REQ, RBC 4.05 L, MCV 82.4, MCH 26.8 L, RDW 14.6 H, MPV 8.6, Gran % 48.0, Lymphocytes % 38.6, Monocytes % 11.0 H, Eosinophils % 1.5, Basophils % 0.9, Absolute Granulocytes 2.8, Absolute Lymphocytes 2.2, Absolute Monocytes 0.6 , Absolute Eosinophils 0.1, Absolute Basophils 0.1, PUBS MCHC 32.5 L 02/15/17 2230: Anion Gap 7, Estimated GFR > 60, BUN/Creatinine Ratio 26.0 H, Magnesium 2.7 H 02/15/17 2030: APTT 69 H 02/15/17 2000: Sodium Cancelled, Potassium Cancelled, Chloride Cancelled, Carbon Dioxide Cancelled, Anion Gap Cancelled, BUN Cancelled, Creatinine Cancelled, BUN/ Creatinine Ratio Cancelled 02/15/17 1635: Troponin I 0.75 *H 02/15/17 1300: APTT 38 H Assessment/Plan Assessment: 67 year old woman with multiple medical problems significant for stage III rectal carinoma s/p resection/chemo/radiation, radiation proctitis, and multiple SBO s/p ileocecectomy seen for evaluation of chest/abdominal pain, nausea, and vomiting. Problem List: -ACS/NSTEMI -Gastroenteritis, improved -Hypertension -History of Stage III rectal carcinoma s/p resection/chemo/radiation -History of multiple SBO s/p ileocecectomy -Radiation proctitis Patient admits to feeling well and denies any further chest/abdominal pain. She did have an episode of nausea overnight that she felt was her baseline. She is continued on Heparin GGT / Statin / Aspirin. She remains hemodynamically stable. A cardiac catheterization will be pursued in the near future as per the recommendations of the Cardiology team. Heparin is to be discontinuned 48 hours after it was initiated. Lisinopril/Metoprolol started; TSH/Free T4/HbA1c returned normal. Plan: -ICU -Troponin: <0.01, 2.09, 1.26, 0.75 -Echo:EF > 65% with stage II diastolic dysfunction, mild concentric LVH, mild basal/proximal inferior wall hypokinesis -Heparin GGT -Aspirin 81mg PO Daily -Atorvastatin 40mg PO Daily -Lisinopril 2.5mg PO Daily, titrate up as needed -Metoprolol 6.25mg PO BID -Continue Lomotil/Pepcid -Antiemetics PRN with Phenergan -Pain Control with Acetaminophen/Dilaudid -Cardio following -Clear liquid diet, advance as tolerated -DVT PPx with Heparin GGT -FULL CODE -Cardiac Cath per Cardiology team Problem List: 1. Elevated troponin Pain Ratin Pain Location: None Pain Goal: Remain pain free Pain Plan: See assessment Tomorrow's Labs & Rationales: CBC BEP Consulting Request: Consulting Specialty: General Surgery FLORI SAVAGE 02/16/17 1121: Attending MD Review Statement Attending Statement Attending MD Statement: examined this patient, discuss w/resident/PA/ORDER CLERK, agreed w/resident/PA/ORDER CLERK, discussed with family, reviewed EMR data (avail), discussed with nursing, discussed with case mgmt, reviewed images, amended to note Attending Assessment/Plan: 67 o/f with multiple abdominal surgeries in past comes with chest pain, cardiology consulted, transferred from ICU to telemetry, Patient started on asa/ statin/anticoagulation/ileaan inhibitor/ b lars as per cardiology. Patient is chest pain free now. Cardiac catherterization as per cardiology. ECHO with preserved EF with inferior wall hypokinesis. continue telemetry, cardiology.
[2017-02-16 10:00] VITALS: BP 110/72
[2017-02-16 10:22] LABS: PTT 60 SEC (25-37)
--- NOTE | 2017-02-16 10:33 | PN- Cardiology ---
Subjective Subjective: Comfortable. No further chest discomfort. Does admit to some earlier abdominal discomfort and nausea but this resolved with Zofran and Dilauded. Sinus rhythm on monitor. Objective Vital Signs and I&Os Vital Signs Date Time Temp Pulse Resp B/P B/P Pulse O2 O2 Flow FiO2 Mean Ox Delivery Rate 02/16 0400 97 Room Air 02/16 0000 98.8 68 20 106/58 97 Nasal Cannula 02/16 0000 97 Room Air 02/15 2000 98 Room Air 02/15 1600 100.2 75 18 130/80 98 Room Air 02/15 1121 Room Air Room Air Intake & Output 02/16 1600 02/16 0800 02/16 0000 02/15 1600 02/15 0800 02/15 0000 Intake Total 361 1190 1609 0 Output Total 0 Balance 361 1190 1609 0 Intake, IV 191 710 769 Intake, Oral 170 480 840 0 Number 2 Bowel Movements Output, Urine 0 Patient 101 lb 100 lb Weight Weight Bed scale Measurement Method Physical Exam: Well-developed, well-nourished elderly female in no acute distress with nasal oxygen in place. Vital signs: See above. Neck: No JVD, no bruits. Lungs: Clear to auscultation bilaterally. Heart: S1, S2 with no murmur, gallop, rub appreciated. PMI fifth ICS at MCL. Abdomen: Soft, nontender, positive bowel sounds. Extremities: No cyanosis, clubbing, or edema. Current Medications: Current Medications Sig/Millicent Start time Last Medication Dose Route Stop Time Status Admin Acetaminophen 650 MG Q6P PRN 02/14 2215 AC PO Aspirin 81 MG DAILY 02/16 1000 AC 02/16 PO 0951 Atorvastatin Calcium 40 MG 1700 02/15 1700 AC 02/15 PO 1612 Diphenoxylate HCl/ 2.5 MG TID PRN 02/15 1245 AC 02/15 Atropine PO 1255 Famotidine 20 MG BID 02/15 1000 AC 02/16 IV 0952 Heparin Sodium 2,748 UNIT ONE ONE 02/15 1432 DC 02/15 (Porcine) IV 02/15 1433 1610 Heparin Sodium 25,000 UNIT Q24H 02/15 0515 AC 02/16 (Porcine) IV 0613 Sodium Chloride 500 ML Hydromorphone HCl 1 MG Q6P PRN 02/14 2315 AC IV Hydromorphone HCl 2 MG Q6P PRN 02/14 2215 AC 02/16 IV 0607 Magnesium Sulfate 1 GM Q2H 02/15 1915 DC 02/15 Dextrose/Water 100 ML IV 02/15 2314 2043 Potassium Chloride 10 MEQ Q1H 02/15 2345 DC 02/16 IV 02/16 0046 0214 Potassium Chloride 60 MEQ ONCE ONE 02/15 2345 DC 02/16 PO 02/15 2346 0009 Potassium Chloride 80 MEQ ONCE ONE 02/15 2330 CAN PO 02/15 2331 Potassium Chloride 10 MEQ Q1H 02/15 1000 DC 02/15 IV 02/15 1201 1611 Promethazine HCl 12.5 MG Q4-6 PRN PRN 02/15 0200 AC 02/16 IV 02/22 0159 0513 Sodium Chloride 1,000 ML .[id number] 02/14 2300 DC 02/15 IV 02/15 1219 0157 Results Last 48 Hrs of Labs/Mics: Laboratory Tests 02/16/17 0915: APTT Pending 02/16/17 0500: Anion Gap 6, Estimated GFR > 60, Glucose 88, Calcium 8.9, Phosphorus 2.8, Magnesium 2.2, Total Bilirubin 0.6, AST 16, ALT 29, Albumin 2.8 L, CBC w Diff NO MAN DIFF REQ, RBC 4.05 L, MCV 82.4, MCH 26.8 L, RDW 14.6 H, MPV 8.6, Gran % 48.0, Lymphocytes % 38.6, Monocytes % 11.0 H, Eosinophils % 1.5, Basophils % 0.9, Absolute Granulocytes 2.8, Absolute Lymphocytes 2.2, Absolute Monocytes 0.6 , Absolute Eosinophils 0.1, Absolute Basophils 0.1, PUBS MCHC 32.5 L 02/15/17 2230: Anion Gap 7, Estimated GFR > 60, BUN/Creatinine Ratio 26.0 H, Magnesium 2.7 H 02/15/17 2030: APTT 69 H 02/15/17 2000: Sodium Cancelled, Potassium Cancelled, Chloride Cancelled, Carbon Dioxide Cancelled, Anion Gap Cancelled, BUN Cancelled, Creatinine Cancelled, BUN/ Creatinine Ratio Cancelled 02/15/17 1635: Troponin I 0.75 *H 02/15/17 1300: APTT 38 H 02/15/17 0630: Anion Gap 11, Estimated GFR > 60, BUN/Creatinine Ratio 34.0 H, Magnesium 1.5 L , Troponin I 1.26 *H, CBC w Diff NO MAN DIFF REQ, RBC 4.64, MCV 82.3, MCH 26.5 L, RDW 14.3, MPV 9.3, Gran % 63.3, Lymphocytes % 23.9, Monocytes % 11.6 H, Eosinophils % 0.8, Basophils % 0.4, Absolute Granulocytes 5.4, Absolute Lymphocytes 2.0, Absolute Monocytes 1.0 H, Absolute Eosinophils 0.1, Absolute Basophils 0, PUBS MCHC 32.2 L 02/15/17 0025: Troponin I 2.09 *H 02/14/17 1626: Lactic Acid Cancelled 02/14/17 1400: Urine Opiates Screen 277.00, Methadone Screen < 40, Barbiturate Screen < 60, Ur Phencyclidine Scrn < 6.00, Amphetamines Screen < 100, U Benzodiazepines Scrn < 85, Urine Cocaine Screen < 50, Urine Cannabis Screen < 5.00, Urine Color YEL, Urine Clarity CLEAR, Urine pH 7.0, Ur Specific Garden 1.010, Urine Protein NEG, Urine Ketones NEG, Urine Nitrite NEG, Urine Bilirubin NEG, Urine Urobilinogen 0.2, Ur Leukocyte Esterase NEG, Ur Microscopic SEDIMENT EXAMINED, Urine RBC 1-3, Urine WBC RARE, Ur Epithelial Cells RARE, Urine Bacteria FEW H, Urine Hemoglobin TRACE-INTACT, Urine Glucose NEG 02/14/17 1340: Anion Gap 13, Estimated GFR > 60, BUN/Creatinine Ratio 32.0 H, Glucose 128 H, Lactic Acid 1.4, Calcium 10.2, Total Bilirubin 1.0, AST 21, ALT 29, Alkaline Phosphatase 131 H, Troponin I < 0.01, C-Reactive Prot, Quant < 0.5, Total Protein 7.4, Albumin 4.6, Globulin 2.8, Albumin/Globulin Ratio 1.6, Lipase 124, CBC w Diff NO MAN DIFF REQ, RBC 5.12, MCV 82.4, MCH 26.8 L, RDW 14.6 H, MPV 8.3, Gran % 77.1 H, Lymphocytes % 15.0 L, Monocytes % 7.1, Eosinophils % 0.5, Basophils % 0.3, Absolute Granulocytes 6.6 H, Absolute Lymphocytes 1.3, Absolute Monocytes 0.6, Absolute Eosinophils 0, Absolute Basophils 0, PUBS MCHC 32.5 L Microbiology 02/15 600 UPPER RESP: Surveillance Culture - COMP 02/15 600 GI: Surveillance Culture - COMP Recent Imaging Studies: CXR (02/15/2017): No evidence of pneumonia. Blunting of the left posterior costophrenic angle suggestive of small pleural effusion or pleural thickening. Echocardiogram (02/15/2017): Normal size left ventricle. Mild concentric left ventricular hypertrophy. Mild hypokinesis of basal inferior wall and proximal portion of mid inferior wall. No other obvious regional wall motion abnormalities. Normal left ventricular ejection fraction visually estimated at >65%. "pseudonormal" filling pattern of the left ventricle for age (stage 2 diastolic dysfunction). Normal right ventricular size and function. Normal atrial size. Trace mitral regurgitation. Trace aortic regurgitation. Mild tricuspid regurgitation. Right ventricular systolic pressure estimated at 34 mmHg. Assessment/Plan Assessment/Plan Small STEMI in this female with a history of hypertension and family history for coronary artery disease with small troponin bump that is trending downward and an echocardiogram reveals preserved left ventricular function. She has remained chest discomfort free and hemodynamically stable. Remains on IV coagulation and antiplatelet therapy. Recommendations: * Stable for transfer to telemetry. * Restart lisinopril at lower dosage i.e., 2.5 mg daily and titrate up as blood pressure allows. * And ZION inhibitor tolerated started on low-dose beta lars such as metoprolol 6.25 mg twice daily and titrate up as tolerated. * Continue statin & antiplatelet therapy indefinitely (ec ASA 81 mg daily) and anticoagulation for 48 hours total. Continue to check all stools for occult blood. * Check free T4, TSH, and glycosylated hemoglobin A1c. * Ultimately, would recommend cardiac catheterization with an eye towards revascularization. * DVT prophylaxis being addressed by anticoagulation for her acute coronary syndrome. Continue telemetry? Not applicable (In ICU.)
[2017-02-16 16:00] VITALS: BP 110/62
[2017-02-16 18:42] LABS: PTT 56 SEC (25-37)
[2017-02-16 18:46] VITALS: BP 128/70
[2017-02-16 22:00] VITALS: BP 116/60
[2017-02-17 04:13] LABS: ABSOLUTE BASOPHIL COUNT 0 /CUMM (0.0-0.2); ABSOLUTE EOSINOPHIL COUNT 0.1 /CUMM (0.0-0.7); ABSOLUTE GRANULOCYTE CT 3.1 /CUMM (1.4-6.5); ABSOLUTE LYMPH COUNT 1.9 /CUMM (1.2-3.4); ABSOLUTE MONOCYTE COUNT 0.5 /CUMM (0.10-0.60); BASOPHIL % 0.8 % (0.0-2.0); EOSINOPHIL % 2.3 % (0-5); GRANULOCYTE % 54.6 % (42.2-75.2); HEMATOCRIT 30.4 % (37-47); MEAN CORPUSCULAR HGB 26.8 PG (27.0-31.0); MEAN CORPUSCULAR HGB CONC 32.8 G/DL (33.0-37.0); MEAN CORPUSCULAR VOLUME 81.8 FL (81.0-99.0); PLATELET COUNT 241 /CUMM (130-400); RBC DISTRIBUTION WIDTH 14.1 % (11.5-14.5); RED BLOOD CELL CT 3.72 /CUMM (4.20-5.40); WHITE BLOOD CELL COUNT 5.8 /CUMM (4.8-10.8)
[2017-02-17 04:24] LABS: PTT 92 SEC (25-37)
[2017-02-17 07:33] VITALS: BP 98/62
[2017-02-17 12:16] LABS: PTT 82 SEC (25-37)
[2017-02-17 14:55] VITALS: BP 90/48
--- NOTE | 2017-02-17 17:14 | PN- Housestaff ---
EDMUNDO HOLMAN,ZAY 02/17/17 1714: Subjective Follow-up For: STEMI Complaints: pain scale (0-10) Tele-Events Since Last Visit: norsmal sinus rhythm 51-82. Subjective: Patient was examined in the morning and said she was feeling ok. Later in the day she is complaining of abdominal pain and has had another episode of chest pain. Review of Systems Constitutional: Reports: no symptoms. Cardiovascular: Reports: chest pain. Denies: edema, palpitations, syncope. Respiratory: Reports: no symptoms. Gastrointestinal: Reports: abdominal pain. Objective Last 24 Hrs of Vital Signs/I&O Vital Signs Date Time Temp Pulse Resp B/P B/P Pulse O2 O2 Flow FiO2 Mean Ox Delivery Rate 02/17 1833 98.4 82 18 9048 02/17 1455 98.4 82 18 97 Room Air 02/17 1040 58 102/58 02/17 1039 58 102/58 02/17 0900 Room Air 02/17 0733 98.4 58 18 98/62 97 Room Air 02/17 0000 Room Air Intake & Output 02/17 1600 02/17 0800 02/17 0000 Intake Total 440 400 Output Total 550 Balance -110 400 Intake, IV 140 Intake, Oral 300 400 Output, Urine 550 Physical Exam General Appearance: Alert, Oriented X3, Cooperative, Mild Distress Skin: No Rashes Skin Temp/Moisture Exam: Warm/Dry HEENT: PERRLA, EOMI, Mucous Membr. moist/pink Cardiovascular: Regular Rate, Normal S1, Normal S2, No Murmurs, Gallops, Rubs Lungs: Clear to Auscultation Abdomen: Normal Bowel Sounds, Soft, No Hepatospenomegaly Neurological: Normal Speech Extremities: Normal Pulses Current Medications: Current Medications Sig/Millicent Start time Last Medication Dose Route Stop Time Status Admin Acetaminophen 650 MG Q6P PRN 02/14 2215 DCD PO Aspirin 81 MG DAILY 02/16 1000 DCD 02/17 PO 1037 Atorvastatin Calcium 40 MG 1700 02/15 1700 DCD 02/17 PO 1648 Diphenoxylate HCl/ 2.5 MG TID PRN 02/15 1245 DCD 02/17 Atropine PO 1648 Famotidine 20 MG BID 02/15 1000 DCD 02/17 IV 1047 Heparin Sodium 25,000 UNIT Q24H 02/17 1715 DCD 02/17 (Porcine) IV 1720 Sodium Chloride 500 ML Heparin Sodium 25,000 UNIT Q24H 02/15 0515 DC 02/17 (Porcine) IV 02/17 0600 1048 Sodium Chloride 500 ML Hydromorphone HCl 1 MG Q6P PRN 02/14 2315 DCD 02/17 IV 1648 Hydromorphone HCl 2 MG Q6P PRN 02/14 2215 DCD 02/16 IV 0607 Lisinopril 2.5 MG DAILY 02/16 1203 DCD 02/17 PO 1039 Metoprolol Tartrate 6.25 MG BID 02/16 1203 DCD 02/17 PO 1040 Nitroglycerin 0.5 GM Q6 02/17 1800 FLD TOP Patient Medication 1 ED .STK-MED ONE 02/17 1430 FL Teaching ED 02/17 1431 Promethazine HCl 12.5 MG Q4-6 PRN PRN 02/15 0200 DCD 02/16 IV 02/22 0159 0513 Last 24 Hrs of Lab/Gilbert Results Last 24 Hrs of Labs/Mics: Laboratory Tests 02/17/17 1700: Troponin I 0.13 *H 02/17/17 1150: APTT 82 H 02/17/17 0930: APTT Cancelled 02/17/17 0345: Anion Gap 7, Estimated GFR > 60, BUN/Creatinine Ratio 27.5 H, APTT 92 H, CBC w Diff NO MAN DIFF REQ, RBC 3.72 L, MCV 81.8, MCH 26.8 L, RDW 14.1, MPV 9.0, Gran % 54.6, Lymphocytes % 33.1, Monocytes % 9.2, Eosinophils % 2.3, Basophils % 0.8, Absolute Granulocytes 3.1, Absolute Lymphocytes 1.9, Absolute Monocytes 0.5 , Absolute Eosinophils 0.1, Absolute Basophils 0, PUBS MCHC 32.8 L Assessment/Plan Assessment: 67 year old woman with multiple medical problems significant for stage III rectal carinoma s/p resection/chemo/radiation, radiation proctitis, and multiple SBO s/p ileocecectomy seen for evaluation of chest/abdominal pain, nausea, and vomiting. Patient found to have had a STEMI. CUCO risk score of 3 signaling revascularization. Patient was evaluated by snuff box finisher started on aspirin, statin, beta lars and IV heparin. Patient remained stable and the chest pain improved with Dilaudid. She was monitored in the ICU as her troponins trended down. Chest pain improved and she was moved out onto the floor with a plan to do elective cardiac cath as an outpatient. Echocardiogram showed type II diastolic dysfunction with EF of more than 65%. Mild hypokinesis of the basal inferior wall and proximal portion of mid inferior wall. She continues to have recurrent chest pain with nausea and vomiting on the floor. Problem List: -ACS/NSTEMI -Hypertension Plan: STEMI -Troponin: <0.01 --> 2.09, 1.26, 0.75 -Echo:EF > 65% with stage II diastolic dysfunction, mild concentric LVH, mild basal/proximal inferior wall hypokinesis -Aspirin 81mg PO Daily -Atorvastatin 40mg PO Daily -Lisinopril 2.5mg PO Daily, titrate up as needed -Metoprolol 6.25mg PO BID -Continue Lomotil/Pepcid -Antiemetics PRN with Phenergan -Pain Control with Acetaminophen/Dilaudid -TRANSFER PATIENT TO [facility] FOR EMERGENT REVASCULARIZATION IN LIGHT OF RECURRENT ATYPICAL CHEST PAIN: Give Nitro, restart heparin, load with clopidogrel 600mg. -EKGs negative and repeat troponins positive, but still trending downwards. Blood pressure is 104/54. Hypokalemia -2.9 02/15. Give kdur to good effect- now 3.5 -Clear liquid diet, advance as tolerated -DVT PPx with Heparin GGT -FULL CODE -Cardiac Cath per Cardiology team Problem List: 1. Elevated troponin 2. Myocardial infarction Pain Ratin Pain Location: chest and abdomen Pain Goal: Pain 4 or less Pain Plan: dilaudid and tylenol for pain Tomorrow's Labs & Rationales: patient is to be discharged to [facility] for catheterization DVT/Prophylaxis: pharmacological Consulting Request: Consulting Specialty: General Surgery MIHAELA LAGUNA MD 02/17/17 0714: Attending MD Review Statement Attending Statement Attending Statement: examined this patient, discuss w/resident/PA/PEDIATRICS TEACHER, agreed w/resident/PA/PEDIATRICS TEACHER, reviewed EMR data (avail), discussed with nursing, discussed with case mgmt, amended to note Attending Assessment/Plan: The patient was seen and discussed with house staff. Late in afternoon she developed recurrent abdominal discomfort with some chest heaviness. Dr. Sanchez came to evaluate and agreed need to transfer to [facility] for planned catheterization.
--- NOTE | 2017-02-17 17:18 | Patient Discharge Instructions ---
Discharge Instructions General Discharge Information You were seen/treated for: chest pain, nausea and Special Instructions: 1. please f/u with you pcp within 1 week of discharge. 2. please f/u with your communication lecturer within 1 week of discharge. Diet Recommended Diet: Heart Healthy Activity Full Activity/No Limits: No Acute Coronary Syndrome Inclusion Criteria At DC or during hospital stay patient has or had the following: ACS DIAGNOSIS Yes Discharge Core Measures Meds if any: Prescribed or Continued at Discharge ZION/ARB if EF <40% Yes Aspirin Yes Beta-Saravanan Yes Statin Yes Meds if any: NOT Prescribed or Continued at Discharge Congestive Heart Failure Inclusion Criteria At DC or during hospital stay patient has or had the following: CHF DIAGNOSIS No Discharge Core Measures Meds if any: Prescribed or Continued at Discharge Meds if any: NOT Prescribed or Continued at Discharge Cerebrovascular accident Inclusion Criteria At DC or during hospital stay patient has or had the following: CVA/TIA Diagnosis No Discharge Core Measures Meds if any: Prescribed or Continued at Discharge Meds if any: NOT Prescribed or Continued at Discharge Venous thromboembolism Inclusion Criteria VTE Diagnosis No VTE Type NONE VTE Confirmed by (Test) NONE Discharge Core Measures - Per Current guidelines, there needs to be overlap - treatment for the first 5 days of Warfarin therapy. - If discharged on Warfarin prior to 5 days of - overlap therapy, the patient will need to be - assessed for post discharge needs including - *Post discharge parental anticoagulation - *Warfarin and/or parental anticoagulation education - *Follow up date to check INR post discharge At least 5 days overlap therapy as Inpatient No Meds if any: Prescribed or Continued at Discharge Note: Overlap Therapy is Warfarin and Anticoagulant Meds if any: NOT Prescribed or Continued at Discharge
[2017-02-17] MEDS ORDERED: HEPARIN-D525000 UNIT IV (17:21)
--- NOTE | 2017-02-17 17:38 | Discharge Summary ---
Visit Information Visit Dates Admission Date: 02/15/17 Discharge Date: 02/17/17 Hospital Course Course Attending Physician: MIHAELA LAGUNA MD Primary Care Physician: KENNY RAO MD Consulting Request: Consulting Specialty: General Surgery Hospital Course: Mrs. Pavithra Oropeza is a 67-year-old female with a history of rectal carcinoma status post resection, chemotherapy, and radiation therapy 2001 -2002, hypertension, and a strong family history for coronary artery disease ( father s/p CABG in his early 60s) who presented to the ED 2 over the weekend , first on Thursday (02/13/2017) with nausea/vomiting and nothing by mouth/ abdominal pain/clamminess times 48 hours which improved after she was given Zofran and Dilauded with subsequent discharge and again on Thursday (02/14/2017) after she ate on arriving home with recurrent nausea/vomiting/abdominal pain, went to bed and was awakened around 6 a.m. not only with the nausea/vomiting/ abdominal pain but also severe ("10/10") chest pressure and shortness of breath that ultimately prompted return to the ED. She was again treated with Zofran and Dilauded, but the chest pain persisted and her troponin returned positive. Recurrent Chest Pain: At admission patient had active chest pain but no EKG changes. Troponins were initially negative but then started rising. Patient was evaluated by hoop bender tank started on aspirin, statin, beta lars and IV heparin. She likely had a NSTEMI Blood pressure was borderline and therefore beta lars and ZION for used cautiously. Promethazine was used for nausea and vomiting Patient remained stable and the chest pain improved with Dilaudid. Given low blood pressure nitroglycerin was not used. She was monitored in the ICU overnight and her troponins trended down. Chest pain improved and she was moved out onto the floor with a plan to do elective cardiac cath as an outpatient. Echocardiogram showed type II diastolic dysfunction with EF of more than 65%. Mild hypokinesis of the basal inferior wall and proximal portion of mid inferior wall.She continued to have recurrent chest pain with nausea and vomiting on the floor and the plan was taken to emergently to cardiac catheterization and therefore the patient is being transferred to [facility] for a cardiac catheterization. DVT prophylaxis IV heparin Full code Allergies: Coded Allergies: NO KNOWN ALLERGIES (09/07/15) Disposition Summary Disposition Principal Diagnosis: ReCurrent chest pain/ NSTEMI Additional Diagnosis: Nausea and vomiting Discharge Disposition: other general hospital Discharge Instructions General Discharge Information Code Status: Full Code Patient's Diet: Heart healthy Patient's Activity: As tolerated Follow-Up Instructions/Appts: 1. please f/u with you pcp within 1 week of discharge. 2. please f/u with your hoop bender tank within 1 week of discharge. Medications at Discharge Discharge Medications: Continue taking these medications: Ascorbate Calcium (Vitamin C) 500 MG TABLET 1 Tablet ORAL DAILY Comments: NOT GIVEN IN HOSPITAL Cholecalciferol (Vitamin D3) 1,000 UNIT TABLET 1 Tablet ORAL DAILY Comments: Last Taken: 12/09/16 Time: 9AM Vitamin E (Vitamin E) (Unknown Strength) CAPSULE Unknown Dose ORAL DAILY Comments: NOT GIVEN IN HOSPITAL Bacillus Coagulans/Inulin (Probiotic Formula Capsule) 1 BILLION CELL-250 MG CAPSULE 1 Capsule ORAL DAILY Comments: NOT GIVEN IN HOSPITAL Cyanocobalamin (Vitamin B-12) (Unknown Strength) TABLET Unknown Dose ORAL DAILY Comments: NOT GIVEN IN HOSPITAL Cranberry Extract (Cranberry) (Unknown Strength) CAPSULE Unknown Dose ORAL DAILY Comments: NOT GIVEN IN HOSPITAL [BLACK SERNA] 1 Capsule ORAL DAILY Comments: NOT GIVEN IN HOSPITAL Opium Tincture (Opium Tincture) 10 MG/ML (MORPHINE) TINCTURE 0.8 Milliliters ORAL 4 times daily as needed as needed for UNKNOWN Qty = 288 Comments: NOT GIVEN IN HOSPITAL Lisinopril (Lisinopril) 5 MG TABLET 1 Tablet ORAL DAILY Qty = 90 Comments: Last Taken: 12/09/16 Time: 9AM Diphenoxylate HCl/Atropine (Lomotil 2.5-0.025 MG Tablet) 2.5 MG-0.025 MG TABLET 4 Tablet ORAL TWICE DAILY Qty = 240 Comments: NOT GIVEN IN HOSPITAL Zolpidem Tartrate (Zolpidem Tartrate) 5 MG TABLET 1 Tablet ORAL Every night Qty = 30 Comments: Last Taken: 12/08/16 Time: 10PM Ferrous Sulfate (Ferrous Sulfate) 325 MG (65 MG IRON) TABLET 1 Tablet ORAL DAILY Comments: NOT GIVEN IN HOSPITAL Calcium Carbonate/Vitamin D3 (Os-Cachorro 500+D3 Caplet) 500 MG-200 TABLET 1 Tablet ORAL DAILY Comments: NOT GIVEN IN HOSPITAL Ondansetron (Zofran Odt) 4 MG TAB.RAPDIS 1 Tablet SUBLINGUAL THREE TIMES DAILY as needed for nausea Qty = 10 Hydromorphone HCl (Dilaudid) 2 MG TABLET 1 Tablet ORAL 2 x Daily as needed as needed for pain Qty = 10 Potassium Chloride (K-Tab ER) 20 MEQ TABLET.ER 1 Tablet ORAL EVERY 24 HOURS Qty = 3 Start taking the following new medications: Heparin Sodium,Porcine/D5w (Heparin-D5w 25,000 Unit/250 Ml) 25,000 UNIT/250 ML ( 100 UNIT/ML) IV.SOLN 1 1ML INTRAVEN EVERY 24 HOURS Days = 7 No Refills Copies To: HIRA HOLMAN,OPLA Guzman Attending MD Review Statement Documenting Attending: MIHAELA LAGUNA MD Other Findings: The patient was seen and discussed with Dr. Sanchez. Transferring to [facility] for cardiac catheterization with Dr. Driscoll.
--- NOTE | 2017-02-17 17:48 | PN- Cardiology ---
Subjective Subjective: Mrs. Oropeza began experiencing chest discomfort earlier and notified the staff approximately 30 minutes ago. She is also now complaining of some shortness of breath. Objective Vital Signs and I&Os Vital Signs Date Time Temp Pulse Resp B/P B/P Pulse O2 O2 Flow FiO2 Mean Ox Delivery Rate 02/17 1455 98.4 82 18 90/48 97 Room Air 02/17 1040 58 102/58 02/17 1039 58 102/58 02/17 0900 Room Air 02/17 0733 98.4 58 18 98/62 97 Room Air 02/17 0000 Room Air 02/16 2200 99.1 74 18 116/60 98 Room Air 02/16 2135 122/68 02/16 1846 98.9 67 18 128/70 99 Room Air Intake & Output 02/17 1600 02/17 0802/17 0000 02/16 1600 02/16 0000 Intake Total 440 400 830 315 1541 Output Total 550 Balance -110 400 483 757 3759 Intake, IV 140 114 191 710 Intake, Oral 300 400 600 170 480 Number 2 Bowel Movements Output, Urine 550 Physical Exam: Well-developed, well-nourished elderly female in no acute distress with nasal oxygen in place. Vital signs: See above. Neck: No JVD, no bruits. Lungs: Clear to auscultation bilaterally. Heart: S1, S2 with no murmur, gallop, rub appreciated. PMI fifth ICS at MCL. Abdomen: Soft, nontender, positive bowel sounds. Extremities: No cyanosis, clubbing, or edema. Current Medications: Current Medications Sig/Millicent Start time Last Medication Dose Route Stop Time Status Admin Acetaminophen 650 MG Q6P PRN 02/14 2215 AC PO Aspirin 81 MG DAILY 02/16 1000 AC 02/17 PO 1037 Atorvastatin Calcium 40 MG 1700 02/15 1700 AC 02/17 PO 1648 Diphenoxylate HCl/ 2.5 MG TID PRN 02/15 1245 AC 02/17 Atropine PO 1648 Famotidine 20 MG BID 02/15 1000 AC 02/17 IV 1047 Heparin Sodium 25,000 UNIT Q24H 02/17 1715 AC 02/17 (Porcine) IV 1720 Sodium Chloride 500 ML Heparin Sodium 5,000 UNIT .STK-MED ONE 02/16 2110 DC (Porcine) IV 02/16 2111 Heparin Sodium 1,400 UNIT ONCE ONE 02/16 2045 TN 02/16 (Porcine) IV 02/16 Heparin Sodium 25,000 UNIT Q24H 02/15 0515 TN 02/17 (Porcine) IV 02/17 0600 1048 Sodium Chloride 500 ML Hydromorphone HCl 1 MG Q6P PRN 02/14 2315 02/17 IV 1648 Hydromorphone HCl 2 MG Q6P PRN 02/14 2215 02/16 IV 0607 Lisinopril 2.5 MG DAILY 02/16 1203 02/17 PO 1039 Metoprolol Tartrate 6.25 MG BID 02/16 1203 02/17 PO 1040 Nitroglycerin 0.5 GM Q6 02/17 1800 TOP Patient Medication 1 ED .STK-MED ONE 02/17 1430 TN Teaching ED 02/17 1431 Promethazine HCl 12.5 MG Q4-6 PRN PRN 02/15 0200 AC 02/16 IV 02/22 0159 0513 Results Last 48 Hrs of Labs/Mics: Laboratory Tests 02/17/17 1700: Troponin I Pending 02/17/17 1150: APTT 82 H 02/17/17 0930: APTT Cancelled 02/17/17 0345: Anion Gap 7, Estimated GFR > 60, BUN/Creatinine Ratio 27.5 H, APTT 92 H, CBC w Diff NO MAN DIFF REQ, RBC 3.72 L, MCV 81.8, MCH 26.8 L, RDW 14.1, MPV 9.0, Gran % 54.6, Lymphocytes % 33.1, Monocytes % 9.2, Eosinophils % 2.3, Basophils % 0.8, Absolute Granulocytes 3.1, Absolute Lymphocytes 1.9, Absolute Monocytes 0.5 , Absolute Eosinophils 0.1, Absolute Basophils 0, PUBS MCHC 32.8 L 02/16/17 1655: APTT 56 H 02/16/17 0915: APTT 60 H 02/16/17 0500: Anion Gap 6, Estimated GFR > 60, Glucose 88, Hemoglobin A1c 5.6, Calcium 8.9, Phosphorus 2.8, Magnesium 2.2, Total Bilirubin 0.6, AST 16, ALT 29, Albumin 2.8 L, TSH 1.220, Free T4 1.63, CBC w Diff NO MAN DIFF REQ, RBC 4.05 L, MCV 82.4, MCH 26.8 L, RDW 14.6 H, MPV 8.6, Gran % 48.0, Lymphocytes % 38.6, Monocytes % 11.0 H, Eosinophils % 1.5, Basophils % 0.9, Absolute Granulocytes 2.8, Absolute Lymphocytes 2.2, Absolute Monocytes 0.6, Absolute Eosinophils 0.1, Absolute Basophils 0.1, PUBS MCHC 32.5 L 02/15/17 2230: Anion Gap 7, Estimated GFR > 60, BUN/Creatinine Ratio 26.0 H, Magnesium 2.7 H 02/15/17 2030: APTT 69 H 02/15/17 2000: Sodium Cancelled, Potassium Cancelled, Chloride Cancelled, Carbon Dioxide Cancelled, Anion Gap Cancelled, BUN Cancelled, Creatinine Cancelled, BUN/ Creatinine Ratio Cancelled Recent Imaging Studies: ECG (02/17/2017): Sinus rhythm, probable inferior wall myocardial infarction that is possibly acute with subtle 1/2 mm segment elevation in leads II, III, aVF. Assessment/Plan Assessment/Plan Small STEMI in this female with a history of hypertension and family history for coronary artery disease with small troponin elevation that had been trending downward, but who again began having chest discomfort with some subtle electrocardiographic inferior wall ST segment elevation this afternoon. The situation was discussed with our interventionalist (Jose David Driscoll M.D., PhD) and the plan will be for emergent transfer to [facility] for cardiac catheterization with an eye towards revascularization. This plan was discussed with Mrs. Oropeza and she is in agreement with our recommendation for cardiac catheterization. Recommendations: * Call [facility] to initiate transfer with Jose David Driscoll M.D., PhD as the accepting physician. * Restart IV heparin. * Load with clopidogrel total 600 mg. * Continue on the rest of her cardiac medications as her blood pressure tolerates. * DVT prophylaxis being addressed by anticoagulation for her acute coronary syndrome. Continue telemetry? Yes
[2017-02-17 18:33] VITALS: BP 90/48
== END 2017-02-17 19:01 | disposition short-term general hospital (02) | DRG 281 ==
LOC: ERH 13:01 → ERHI 18:32 → ENRESERV 21:06 → ENTRNSPT 21:27 → EDTRNSPTSTS 21:29 → CRI 21:37 → 2NB 21:41 → CMPTRNSPT 21:52 → CRI 02-15 05:38 → 1NO 02-15 05:52 → CRI 02-15 10:32 → 1NO 02-16 18:40 → ENPENDDIS 02-17 18:21 → 1NO 02-17 19:01
PROVIDERS: Emergency Medicine; Internal Medicine Interventional Cardiology; Physician Assistant Medical; Student in an Organized Health Care Education/Training Program; ADMIT Internal Medicine
DX: I21.3 ST elevation (STEMI) myocardial infarction of unspecified site (principal); R64 Cachexia; Z68.1 Body mass index [BMI] 19.9 or less, adult; I10 Essential (primary) hypertension; Z85.048 Personal history of other malignant neoplasm of rectum, rectosigmoid junction, and anus; K52.9 Noninfective gastroenteritis and colitis, unspecified; E87.6 Hypokalemia; K62.7 Radiation proctitis; Y84.2 Radiological procedure and radiotherapy as the cause of abnormal reaction of the patient, or of later complication, without mention of misadventure at the time of the procedure; Z82.49 Family history of ischemic heart disease and other diseases of the circulatory system; Z86.711 Personal history of pulmonary embolism; Z86.718 Personal history of other venous thrombosis and embolism
CPT/HCPCS: 1NSP; CCU; 36415; 74000; 80307; 81001; 82436; 93005; 93010; 93306; 96361; 96374; 96375; 96376; J1644; J1650; J2405; J2550; J3490

== ENCOUNTER 2017-10-30 19:09 | Inpatient (IN) | payer OTHER ==
[~2017-10-30] VITALS: Ht 160 cm; Wt 45.0 kg
[~2017-10-30 19:09] MED LIST changes: +ASPIRIN EC325 M2 PO; +DAIRY DIGES9000 UNIT PO; +GATTEX5 MG SC; +HEPARIN-D525000 UNIT IV; +LEVSIN-SL0.125 MG SL; +POTASSIUM CHLO20 ME2 PO; +PROAIR HFA8.5 GM INH; +TRANSDERM-SCOP1 EACH TOP; +TRAZODONE HCL50 M1 PO
[2017-10-30 19:51] LABS: ABSOLUTE BASOPHIL COUNT 0.1 /CUMM (0.0-0.2); ABSOLUTE EOSINOPHIL COUNT 0.1 /CUMM (0.0-0.7); ABSOLUTE GRANULOCYTE CT 9.8 /CUMM (1.4-6.5); ABSOLUTE LYMPH COUNT 1.7 /CUMM (1.2-3.4); ABSOLUTE MONOCYTE COUNT 0.8 /CUMM (0.10-0.60); BASOPHIL % 0.6 % (0.0-2.0); EOSINOPHIL % 0.7 % (0-5); GRANULOCYTE % 79.2 % (42.2-75.2); HEMATOCRIT 39.7 % (37-47); MEAN CORPUSCULAR HGB 28.3 PG (27.0-31.0); MEAN CORPUSCULAR HGB CONC 32.8 G/DL (33.0-37.0); MEAN CORPUSCULAR VOLUME 86.5 FL (81.0-99.0); MEAN PLATELET VOLUME 8.3 FL (7.4-10.4); PLATELET COUNT 393 /CUMM (130-400); RBC DISTRIBUTION WIDTH 14.5 % (11.5-14.5); RED BLOOD CELL CT 4.59 /CUMM (4.20-5.40); WHITE BLOOD CELL COUNT 12.3 /CUMM (4.8-10.8)
[2017-10-30 19:58] LABS: PT 12.8 SEC (9.4-12.5)
--- NOTE | 2017-10-30 20:54 | ED GI/GU/ABDOMINAL COMPLAINT ---
History of Present Illness General Chief Complaint: Nausea, Vomiting, Diarrhea Stated Complaint: "BEEN THROWING UP FOR 3 HOURS" Source: patient Exam Limitations: no limitations Vital Signs & Intake/Output Vital Signs & Intake/Output Vital Signs Date Time Temp Pulse Resp B/P B/P Pulse O2 O2 Flow FiO2 Mean Ox Delivery Rate 10/31 0035 98.2 72 18 133/78 97 Room Air 10/30 2318 78 18 144/80 97 Room Air 10/30 1922 120 24 173/116 96 ED Intake and Output 10/31 0000 10/30 1200 Intake Total 1000 Output Total Balance 1000 Intake, IV 1000 Patient 106 lb Weight Allergies Coded Allergies: NO KNOWN ALLERGIES (09/07/15) Reconcile Medications Aspirin (Ecotrin*) 81 MG TABLET.DR 1 TAB PO DAILY HEART HEALTH (Reported) Bifidobacterium Infantis (Align) 10.5 MG (10 MILLION CELL) TAB.CHEW 1 TAB PO DAILY PROBIOTIC (Reported) [BLACK SERNA] 1 CAP PO DAILY SUPPLEMENT (Reported) Cholecalciferol (Vitamin D3) 1,000 UNIT TABLET 1 TAB PO DAILY VITAMIN SUPPORT (Reported) Cranberry Extract (Cranberry) (Unknown Strength) CAPSULE 1 CAP PO DAILY SUPPLEMENT (Reported) Diphenoxylate HCl/Atropine (Lomotil 2.5-0.025 MG Tablet) 2.5 MG-0.025 MG TABLET 8 TAB PO DAILY DIARRHEA (Reported) Lactase (Dairy Digestive) (Unknown Strength) TABLET 2 TAB PO DAILY DIGESTIVE AID (Reported) Lisinopril 5 MG TABLET 1 TAB PO DAILY HEART (Reported) Opium Tincture 10 MG/ML (MORPHINE) TINCTURE 2 ML PO DAILY PRN DAILY (Reported ) Potassium Chloride 20 MEQ TAB.ER.PRT 1 TAB PO DAILY hypokalemia Teduglutide (Gattex) (Unknown Strength) KIT 1 SYR SC AT BEDTIME BOWEL MELE ( Reported) Trazodone HCl 50 MG TABLET 1 TAB PO QHS SLEEP (Reported) Vitamin E (Unknown Strength) CAPSULE 1 CAP PO DAILY VITAMIN SUPPORT (Reported ) Triage Note: PER PRT VOMITIING SINCE 3PM PER PT HX OF SBO SAW DR HOOKS ON THURSDAY GIVEN XIFAXAN TID FOR DIARRHEA(CHRONIC) TOOK IT LAST NIGHT BEEN VOMITING X 3 HRS. VOMITIING IN TRIAGE BILIOUS MATERIAL Triage Nurses Notes Reviewed? yes ? n Is pt currently ? No HPI: 67 yo woman h/o sbo developed sudden bilious vomiting this afternoon at approximately 330pm. "I vomited everything out... this is just like when I had a small bowel obstruction like last time." She has loose stool, but no BM since beginning her vomiting episodes at 3:30pm. She has no fever, chills, chest pain, shortness of breath. She is otherwise well. Past History Travel History Traveled to [place] past 21 day No Medical History Any Pertinent Medical History? 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: miscarriage, OOPHORECTOMY History of MRSA: No History of VRE: No History of CDIFF: No Influenza Vaccine: 06/10/17 Surgical History Surgical History: colon resection (2001), hysterectomy, right subclavian Port-A- C enucleation LEFT eye bunions ileostomy reversal 2003 laparotomy, lysis of adhesions, revision of anastomosis, ventral hernia repair 01/11/15 ILEECTOMY, LYSIS OF ADHESION Psychosocial History Who do you live with Son Services at Home None What is your primary language Amharic Tobacco Use: Never used Family History Family History, If Any: MOTHER FH: CAD (coronary artery disease) FH: ovarian cancer FATHER FH: CAD (coronary artery disease) FATHER (CAD s/p bipass age 69). BROTHER Hx Contributory? No Review of Systems Review of Systems Constitutional: Reports: no symptoms. EENTM: Reports: no symptoms. Respiratory: Reports: no symptoms. Cardiovascular: Reports: no symptoms. GI: Reports: no symptoms. Genitourinary: Reports: no symptoms. Musculoskeletal: Reports: no symptoms. Skin: Reports: no symptoms. Neurological/Psychological: Reports: no symptoms. Hematologic/Endocrine: Reports: no symptoms. Immunologic/Allergic: Reports: no symptoms. All Other Systems: Reviewed and Negative Physical Exam Physical Exam General Appearance: well developed/nourished, moderate distress Head: atraumatic, normal appearance Eyes: Bilateral: normal appearance. Ears, Nose, Throat, Mouth: hearing grossly normal, moist mucous membrane Neck: normal inspection, supple, full range of motion Respiratory: normal breath sounds, chest non-tender, no respiratory distress, quiet respiration, lungs clear Cardiovascular: regular rate/rhythm Gastrointestinal: tympanimic, distant bowel sounds, distended, minimally tender w/o rebound. Back: normal inspection Extremities: normal range of motion Neurologic/Psych: no motor/sensory deficits, awake, alert, oriented x 3 Skin: intact, normal color, warm/dry Core Measures ACS in differential dx? No Sepsis Present: No Sepsis Focused Exam Completed? No Progress Differential Diagnosis: sbo vs other. Plan of Care: Orders Procedure Date/time Status Nothing by Mouth 10/31 B Active [id number] VIEWS 11/01 799 Active CBC WITHOUT DIFFERENTIAL 10/31 599 Active BASIC ELECTROLYTES PLUS BUN&CR 10/31 599 Active Patient Data 10/30 2321 Active Vital Signs 10/30 2321 Active Saline Lock 10/31 2155 Active Misc Message 10/31 2155 Active ED Holding Orders 10/31 2155 Active Admit to inpatient 10/31 2155 Active Vital Signs 10/30 215 Active Code Status 10/30 215 Active Intake & Output 10/31 2127 Active Add-on Test (ER Only) 10/30 2054 Active EKG 10/30 2054 Active PROTHROMBIN TIME 10/30 1941 Complete LIPASE 10/30 194 Complete LACTIC ACID 10/30 1941 Complete COMPREHENSIVE METABOLIC PANEL 10/30 1941 Complete CBC WITHOUT DIFFERENTIAL 10/30 1941 Complete AMYLASE 10/30 1941 Complete TROPONIN LEVEL 10/31 1939 Complete Current Medications Sig/Millicent Start time Last Medication Dose Stop Time Status Admin Trazodone HCl 50 MG AT BEDTIME 10/31 2200 UNVr (Desyrel) Famotidine 20 MG BID 10/31 1000 UNVr (Pepcid) Lisinopril 5 MG DAILY 10/31 1000 AC (Prinivil) Potassium Chloride 20 MEQ DAILY 10/31 1000 UNVr (K-Dur) Heparin Sodium 5,000 UNIT Q8 10/31 0600 UNVr (Porcine) Ondansetron HCl 4 MG ONCE ONE 10/31 0045 UNVr (Zofran) 10/31 0046 Potassium Chloride 20 MEQ Q10H 10/30 2345 AC (KCL 20MEQ in 1/2NS 1000ML) Dextrose/Sodium 1,000 ML Chloride (D5W-1/2 Normal Saline 1000ML) Acetaminophen 1,000 MG Q6P PRN 10/30 2329 UNVr (Ofirmev) N/A 1 UNIT (No Carrier) Morphine Sulfate 4 MG Q4P PRN 10/30 2329 AC (Morphine) Morphine Sulfate 6 MG Q4P PRN 10/30 2329 AC (Morphine) Ondansetron HCl 4 MG Q6P PRN 10/30 2329 AC (Zofran) Laboratory Tests 10/30/172241: Lactic Acid Cancelled 10/30/170: Anion Gap 14, Estimated GFR > 60, BUN/Creatinine Ratio 24.0, Glucose 114 H, Lactic Acid 1.1, Calcium 10.1, Total Bilirubin 0.6, AST 20, ALT 29, Alkaline Phosphatase 143 H, Troponin I < 0.01, Total Protein 7.3, Albumin 4.2, Globulin 3.1, Albumin/Globulin Ratio 1.4, Amylase 43, Lipase 202, PT 12.8 H, INR 1.17, CBC w Diff NO MAN DIFF REQ, RBC 4.59, MCV 86.5, MCH 28.3, MCHC 32.8 L, RDW 14.5 , MPV 8.3, Gran % 79.2 H, Lymphocytes % 13.4 L, Monocytes % 6.1, Eosinophils % 0.7, Basophils % 0.6, Absolute Granulocytes 9.8 H, Absolute Lymphocytes 1.7, Absolute Monocytes 0.8 H, Absolute Eosinophils 0.1, Absolute Basophils 0.1 Diagnostic Imaging: Viewed by Me: CT Scan. Discussed w/RAD: CT Scan. Radiology Impression: PATIENT: DILIP BUCHANAN PRESENT AGE: 67 PATIENT ACCOUNT NO: [id number] : 49 LOCATION: [facility] ORDERING PHYSICIAN: Darwin Edouard MD SERVICE DATE: 10/30/17 EXAM TYPE: CAT - CT ABD & PELVIS W/O IV CONTRAS EXAMINATION: CT ABDOMEN AND PELVIS WITHOUT CONTRAST CLINICAL INFORMATION: Vomiting COMPARISON: 06/28/2017 and earlier TECHNIQUE: Multidetector volumetric imaging was performed from the lung bases through the pubic symphysis. Sagittal and coronal reformatted images were obtained on the technologist workstation. Total exam dose-length product 222 mGy-cm FINDINGS: The lack of intravenous contrast limits evaluation of the solid visceral organs including the liver, spleen, pancreas, and kidneys. LUNG BASES: The visualized lung bases are unremarkable. LIVER, GALLBLADDER, AND BILIARY TREE: Well-circumscribed water density likely simple cysts are again seen in the left lobe of the liver. Lack of intravenous contrast limits further evaluation. Gallbladder moderately distended. No gallbladder wall thickening or pericholecystic fluid. No biliary ductal dilatation. PANCREAS: Limited non- contrast evaluation is normal. No leticia-pancreatic fluid. SPLEEN: Limited non- contrast evaluation is normal. ADRENAL GLANDS: Normal; no adrenal mass. KIDNEYS AND URETERS: Limited non-contrast evaluation is normal. No hydronephrosis, hydroureter, or calculi seen. No perinephric stranding. GASTROINTESTINAL TRACT: The stomach is distended with fluid. There is a paucity of abdominal fat which limits evaluation. There is also extensive streak artifact in the pelvis from a metallic object adjacent the right hip on the activities director scouting radiograph. There are multiple dilated loops of small bowel, several of which have fecalized small bowel contents, for example small bowel loops in the left abdomen dilated up to 3 cm. The exact transition point is uncertain as there appear to be multiple intervening areas with normal caliber but there are fecalized small bowel contents. There appears to be a suture chain in the region of the sigmoid colon. Additional sutures are seen in the right colon. There is stool throughout the colon. No definite colonic wall thickening. ABDOMINAL WALL: No hernia seen. LYMPH NODES: No pathologically enlarged lymph nodes in the abdomen or pelvis. VASCULAR: Normal caliber abdominal aorta. BLADDER: Not well seen. PELVIC VISCERA : Not well seen. OSSEOUS STRUCTURES: No acute or suspicious osseous abnormalities. There are degenerative changes of the lumbar spine. Grade 1 anterolisthesis L4 on L5. IMPRESSION: Findings are similar to the prior study, perhaps to a lesser degree. There are dilated loops of small bowel with fecalized small bowel contents consistent with a small bowel obstruction. The precise transition point is not identified. There is stool throughout the colon is well with sutures suggesting prior surgery of the rectum and right colon. The appearance could represent a moderate to high-grade though incomplete small bowel obstruction. The patient may benefit from a study with IV contrast for further anatomic delineation. Correlation with clinical history would be helpful as well. DICTATED BY: Jose Bender MD DATE/TIME DICTATED:10/30/172124 AUTOMOBILE UPHOLSTERER:AGA DATE/TIME TRANSCRIBED:10/30/172124 CONFIDENTIAL, DO NOT COPY WITHOUT APPROPRIATE AUTHORIZATION. <Electronically signed in Other Vendor System> SIGNED BY: Jose Bender MD 10/30/172146 Initial ED EKG: nsr, no acute changes. Departure Departure Disposition: STILL A PATIENT Condition: Stable Clinical Impression Primary Impression: Small bowel obstruction Referrals: Malena Alejandre MD (PCP/Family) Departure Forms: Customer Survey General Discharge Information Admission Note Spoke With: Ezekiel Gordon DO Documentation of Exam: Documentation of any treatments & extenuating circumstances including Concerns Regarding Discharge (functional status, medication knowledge or non-compliance, living conditions, etc.) that warrant an admission rather than observation: pt with small bowel obstruction. pt declines ng tube. pt merits bowel rest, iv fluids, iv pain meds, antiemetics.
--- NOTE | 2017-10-30 21:47 | CT SCAN REPORT ---
EXAMINATION: CT ABDOMEN AND PELVIS WITHOUT CONTRAST CLINICAL INFORMATION: Vomiting COMPARISON: 06/28/2017 and earlier TECHNIQUE: Multidetector volumetric imaging was performed from the lung bases through the pubic symphysis. Sagittal and coronal reformatted images were obtained on the technologist workstation. Total exam dose-length product 222 mGy-cm FINDINGS: The lack of intravenous contrast limits evaluation of the solid visceral organs including the liver, spleen, pancreas, and kidneys. LUNG BASES: The visualized lung bases are unremarkable. LIVER, GALLBLADDER, AND BILIARY TREE: Well-circumscribed water density likely simple cysts are again seen in the left lobe of the liver. Lack of intravenous contrast limits further evaluation. Gallbladder moderately distended. No gallbladder wall thickening or pericholecystic fluid. No biliary ductal dilatation. PANCREAS: Limited non-contrast evaluation is normal. No leticia-pancreatic fluid. SPLEEN: Limited non-contrast evaluation is normal. ADRENAL GLANDS: Normal; no adrenal mass. KIDNEYS AND URETERS: Limited non-contrast evaluation is normal. No hydronephrosis, hydroureter, or calculi seen. No perinephric stranding. GASTROINTESTINAL TRACT: The stomach is distended with fluid. There is a paucity of abdominal fat which limits evaluation. There is also extensive streak artifact in the pelvis from a metallic object adjacent the right hip on the teacher's assistant radiograph. There are multiple dilated loops of small bowel, several of which have fecalized small bowel contents, for example small bowel loops in the left abdomen dilated up to 3 cm. The exact transition point is uncertain as there appear to be multiple intervening areas with normal caliber but there are fecalized small bowel contents. There appears to be a suture chain in the region of the sigmoid colon. Additional sutures are seen in the right colon. There is stool throughout the colon. No definite colonic wall thickening. ABDOMINAL WALL: No hernia seen. LYMPH NODES: No pathologically enlarged lymph nodes in the abdomen or pelvis. VASCULAR: Normal caliber abdominal aorta. BLADDER: Not well seen. PELVIC VISCERA: Not well seen. OSSEOUS STRUCTURES: No acute or suspicious osseous abnormalities. There are degenerative changes of the lumbar spine. Grade 1 anterolisthesis L4 on L5. IMPRESSION: Findings are similar to the prior study, perhaps to a lesser degree. There are dilated loops of small bowel with fecalized small bowel contents consistent with a small bowel obstruction. The precise transition point is not identified. There is stool throughout the colon is well with sutures suggesting prior surgery of the rectum and right colon. The appearance could represent a moderate to high-grade though incomplete small bowel obstruction. The patient may benefit from a study with IV contrast for further anatomic delineation. Correlation with clinical history would be helpful as well.
[2017-10-30] MEDS ORDERED: ASPIRIN EC81 M1 PO (23:03)
[2017-10-30] MEDS ORDERED: ALIGN10.5 MG PO (23:08)
[2017-10-30] MEDS ORDERED: LOMOTIL 2.5-0.1 EACH PO (23:12)
[2017-10-30] MEDS ORDERED: OPIUM TINC10 MG/1 ML PO (23:14)
--- NOTE | 2017-10-30 23:45 | History & Physical Pre-Op ---
Michaelle Whitehead 10/30/17 0044: General Information and HPI MD Statement: I have seen and personally examined DILIP BUCHANAN and documented this H& P. The patient is a 67 year old F who presented with a patient stated chief complaint of abdominal pain, N/V. Source of Information: patient, old records Exam Limitations: no limitations History of Present Illness: Patient is a 67-year-old female with history of colon cancer, status post resection, chemotherapy and radiation in [id number]. She has a long-standing history of recurrent bowel obstructions and chronic diarrhea. Patient reported to the ED this evening with complaints of severe abdominal pain 10 out of 10, nausea, and large volume emesis (filled up a small trash can) 3 hours prior to admission. She states that she saw Dr. Palomino on Thursday for a routine visit and was started on Xifaxan for chronic diarrhea, which she feels may have prompted her symptoms. She also takes Lomotil and opium tincture on a regular basis to alleviate symptoms of chronic diarrhea. Prior to this admission, patient was feeling well for a few months and was happy that she had gained a few pounds. Workup performed in the ED revealed CT evidence of moderate to high -grade small bowel obstruction with fecalization of the small bowel. She does have a history of ileocecectomy in 2014. At this time, pain levels have improved with morphine, currently 5/10. She is refusing nasogastric tube because she states that she is "completely empty." Otherwise denies headache, dizziness, chest pain, shortness of breath, constipation, oliguria. Last bowel movement was yesterday and appetite has been poor all day. Allergies/Medications Allergies: Coded Allergies: NO KNOWN ALLERGIES (09/07/15) Home Med list Aspirin (Ecotrin*) 81 MG TABLET.DR 1 TAB PO DAILY HEART HEALTH (Reported) Bifidobacterium Infantis (Align) 10.5 MG (10 MILLION CELL) TAB.CHEW 1 TAB PO DAILY PROBIOTIC (Reported) [BLACK SERNA] 1 CAP PO DAILY SUPPLEMENT (Reported) Cholecalciferol (Vitamin D3) 1,000 UNIT TABLET 1 TAB PO DAILY VITAMIN SUPPORT (Reported) Cranberry Extract (Cranberry) (Unknown Strength) CAPSULE 1 CAP PO DAILY SUPPLEMENT (Reported) Diphenoxylate HCl/Atropine (Lomotil 2.5-0.025 MG Tablet) 2.5 MG-0.025 MG TABLET 8 TAB PO DAILY DIARRHEA (Reported) Lactase (Dairy Digestive) (Unknown Strength) TABLET 2 TAB PO DAILY DIGESTIVE AID (Reported) Lisinopril 5 MG TABLET 1 TAB PO DAILY HEART (Reported) Opium Tincture 10 MG/ML (MORPHINE) TINCTURE 2 ML PO DAILY PRN DAILY (Reported ) Potassium Chloride 20 MEQ TAB.ER.PRT 1 TAB PO DAILY hypokalemia Teduglutide (Gattex) (Unknown Strength) KIT 1 SYR SC AT BEDTIME BOWEL MELE ( Reported) Trazodone HCl 50 MG TABLET 1 TAB PO QHS SLEEP (Reported) Vitamin E (Unknown Strength) CAPSULE 1 CAP PO DAILY VITAMIN SUPPORT (Reported ) Past History Medical History Neurological: NONE EENT: LT.EYE ENUCLEATION Cardiovascular: hypertension, myocardial infarction, JANUARY 2017 Respiratory: pulmonary embolism (- and DVT s/p completion of AC) Gastrointestinal: umbilical hernia, SMALL BOWEL OBSTRUCTIONS Hepatic: NONE Renal: NONE Musculoskeletal: osteoarthritis, BUNIONS Psychiatric: NONE Endocrine: NONE Cancer(s): colon/rectal cancer (s/p chemo, xrt, resection), 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/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 BROTHER Psychosocial History Who Do You Live With? child Services at Home None Functional Ability ADLs Independent: dressing, eating, toileting, bathing. IADLs Independent: shopping, housework, finances, food prep, telephone, transportation , medication admin. Review of Systems Review of Systems: Positive for abdominal pain, nausea, vomiting, and chronic diarrhea. Negative for fever, chills, sweating, headache, dizziness, chest pain, shortness of breath, constipation, rectal bleeding, dysuria, oliguria. Exam & Diagnostic Data Last 24 Hrs of Vital Signs/I&O Vital Signs Date Time Temp Pulse Resp B/P B/P Pulse O2 O2 Flow FiO2 Mean Ox Delivery Rate 10/31 0035 98.2 72 18 133/78 97 Room Air 10/30 2318 78 18 144/80 97 Room Air 10/30 1922 120 24 173/116 96 Intake & Output 10/31 0800 10/31 0000 10/30 1600 Intake Total 1000 Output Total Balance 1000 Intake, IV 1000 Patient 106 lb Weight Physical Exam: Gen.: Patient is awake and alert. No acute distress. She appears thin. Cardiac: Regular Pulmonary: Lungs are clear bilaterally. Abdomen: Soft and mildly distended. There is mild generalized tenderness, with some guarding, but no rebound tenderness. Hypoactive bowel sounds are heard. Old well-healed midline scar is present. Last 24 Hrs of Labs/Gilbert: Laboratory Tests 10/30/17 2242: Lactic Acid Cancelled 10/30/17 1940: Anion Gap 14, Estimated GFR > 60, BUN/Creatinine Ratio 24.0, Glucose 114 H, Lactic Acid 1.1, Calcium 10.1, Total Bilirubin 0.6, AST 20, ALT 29, Alkaline Phosphatase 143 H, Troponin I < 0.01, Total Protein 7.3, Albumin 4.2, Globulin 3.1, Albumin/Globulin Ratio 1.4, Amylase 43, Lipase 202, PT 12.8 H, INR 1.17, CBC w Diff NO MAN DIFF REQ, RBC 4.59, MCV 86.5, MCH 28.3, MCHC 32.8 L, RDW 14.5 , MPV 8.3, Gran % 79.2 H, Lymphocytes % 13.4 L, Monocytes % 6.1, Eosinophils % 0.7, Basophils % 0.6, Absolute Granulocytes 9.8 H, Absolute Lymphocytes 1.7, Absolute Monocytes 0.8 H, Absolute Eosinophils 0.1, Absolute Basophils 0.1 Diagnostic Data Other Results CT scan of the abdomen and pelvis revealed: Findings are similar to the prior study, perhaps to a lesser degree. There are dilated loops of small bowel with fecalized small bowel contents consistent with a small bowel obstruction. The precise transition point is not identified. There is stool throughout the colon is well with sutures suggesting prior surgery of the rectum and right colon. The appearance could represent a moderate to high-grade though incomplete small bowel obstruction. The patient may benefit from a study with IV contrast for further anatomic delineation. Correlation with clinical history would be helpful as well. Assessment/Plan Assessment/Plan: Patient is 59-year-old female with history of rectal cancer and a long-standing history of diarrhea and recurrent small bowel obstructions, who presents with moderate to high-grade small bowel obstruction. Her symptoms this time seemed to have been precipitated by initiation of Xifaxan this week, although she is also on several other meds for diarrhea. Plan: -Admit to Dr. Gordon's service on the general medical floor. -Conservative management of bowel obstruction with bowel rest (npo except meds), IV fluids, and serial abdominal exams. Patient is refusing a nasogastric tube, which is reasonable since she has not vomited in a couple of hours. -Multiview x-ray of the abdomen in the morning to monitor progress. -Pain control with morphine IV as needed. -Replete potassium. -Dr. Gordon is aware and agrees with the plan. As Ranked By This Provider Problem List: 1. Small bowel obstruction Ezekiel Gordon DO 10/31/17 1059: Attending MD Review Statement Attending Statement Attending MD Statement: examined this patient, discuss w/resident/PA/INSTRUCTOR PAINTING, agreed w/resident/PA/INSTRUCTOR PAINTING, discussed with family, reviewed EMR data (avail), reviewed images Attending Assessment/Plan: Patient seen and examined, agree with above. Recurrent SBO, persistent N/V today , refused NGT last night. AVSS. UO ok. Abd-soft, distended, mild discomfort. Labs reviewed. CT c/w SBO. NPO/IVF, patient agreeable to NGT now, will continue conservative management for now.
[2017-10-31 00:57] VITALS: BP 160/90
[2017-10-31 06:51] VITALS: BP 152/76
[2017-10-31 09:03] LABS: ABSOLUTE BASOPHIL COUNT 0 /CUMM (0.0-0.2); ABSOLUTE EOSINOPHIL COUNT 0.2 /CUMM (0.0-0.7); ABSOLUTE GRANULOCYTE CT 4.5 /CUMM (1.4-6.5); ABSOLUTE LYMPH COUNT 1.1 /CUMM (1.2-3.4); ABSOLUTE MONOCYTE COUNT 0.5 /CUMM (0.10-0.60); BASOPHIL % 0.4 % (0.0-2.0); EOSINOPHIL % 2.7 % (0-5); GRANULOCYTE % 71.1 % (42.2-75.2); MEAN CORPUSCULAR HGB 28.8 PG (27.0-31.0); MEAN CORPUSCULAR HGB CONC 33.2 G/DL (33.0-37.0); MEAN CORPUSCULAR VOLUME 86.8 FL (81.0-99.0); PLATELET COUNT 271 /CUMM (130-400); RBC DISTRIBUTION WIDTH 14.6 % (11.5-14.5); RED BLOOD CELL CT 3.65 /CUMM (4.20-5.40); WHITE BLOOD CELL COUNT 6.3 /CUMM (4.8-10.8)
[2017-10-31 12:43] LABS: HEMATOCRIT 31.6 % (37-47)
--- NOTE | 2017-10-31 13:33 | RADIOLOGY REPORT ---
EXAMINATION: XR PORTABLE CHEST CLINICAL INFORMATION: Please evaluate NG tube placement. COMPARISON: Chest radiograph 06/28/2017. TECHNIQUE: Portable frontal view of the chest was obtained. FINDINGS: There is a nasogastric catheter within the stomach. The lungs are grossly clear without consolidation, edema, or effusion. There is no pneumothorax. The cardiomediastinal silhouette appears normal. There are advanced degenerative changes at the shoulder joints. IMPRESSION: NG tube in the stomach.
--- NOTE | 2017-10-31 13:59 | PN- General Surgery ---
Subjective Subjective: Patient was admitted last night with recurrent small bowel obstruction. She initially declined an NG tube, but continued to have nausea throughout the night , followed by emesis in the morning. Symptoms were not resolved with Zofran or Phenergan. She was later agreeable to the NG tube, which was placed without complication just before noon today. No gastric contents were aspirated, but placement was confirmed with chest x-ray. Patient was also seen by Dr. Gordon this morning. Objective Vital Signs and I&Os Vital Signs Date Time Temp Pulse Resp B/P B/P Pulse O2 O2 Flow FiO2 Mean Ox Delivery Rate 10/31 650 97.7 70 16 152/76 96 Room Air 10/31 0236 98 Room Air 10/31 0057 98.1 70 16 160/90 97 Room Air 10/31 0035 98.2 72 18 133/78 97 Room Air 10/30 2318 78 18 144/80 97 Room Air 10/30 1922 120 24 173/116 96 Intake & Output 10/31 1600 10/31 0810/31 0000 10/30 1600 10/31 0700 10/30 0000 Intake Total 420 1000 Output Total 400 Balance 20 1000 Intake, IV 420 1000 Intake, Oral 0 Number 0 Bowel Movements Output, Urine 400 Patient 99 lb 4.99 oz 106 lb Weight Weight Bed scale Measurement Method Physical Exam: Gen.: Patient is awake and alert. No acute distress, but she is uncomfortable. Cardiac: Regular Pulmonary: Lungs are clear bilaterally. Abdomen: Soft and mildly distended. She has vague tenderness throughout. Hypoactive bowel sounds were heard. No significant changes in abdominal exam in comparison to yesterday. Results Last 48 Hours of Labs: Laboratory Tests 10/31 10/30 0730 2242 Chemistry Sodium (137 - 145 mmol/L) 141 Potassium (3.5 - 5.1 mmol/L) 3.0 L Chloride (98 - 107 mmol/L) 103 Carbon Dioxide (22 - 30 mmol/L) 30 Anion Gap (5 - 16) 9 BUN (7 - 17 mg/dL) 13 Creatinine (0.5 - 1.0 mg/dL) 0.4 L Estimated GFR (>60 ml/min) > 60 BUN/Creatinine Ratio (7 - 25 %) 32.5 H Lactic Acid Cancelled Magnesium (1.6 - 2.3 mg/dL) 1.3 L Hematology CBC w Diff NO MAN DIFF REQ WBC (4.8 - 10.8 /CUMM) 6.3 RBC (4.20 - 5.40 /CUMM) 3.65 L Hgb (12.0 - 16.0 G/DL) 10.5 L Hct (37 - 47 %) 31.6 L MCV (81.0 - 99.0 FL) 86.8 MCH (27.0 - 31.0 PG) 28.8 MCHC (33.0 - 37.0 G/DL) 33.2 RDW (11.5 - 14.5 %) 14.6 H Plt Count (130 - 400 /CUMM) 271 MPV (7.4 - 10.4 FL) 9.0 Gran % (42.2 - 75.2 %) 71.1 Lymphocytes % (20.5 - 51.1 %) 17.8 L Monocytes % (1.7 - 9.3 %) 8.0 Eosinophils % (0 - 5 %) 2.7 Basophils % (0.0 - 2.0 %) 0.4 Absolute Granulocytes (1.4 - 6.5 /CUMM) 4.5 Absolute Lymphocytes (1.2 - 3.4 /CUMM) 1.1 L Absolute Monocytes (0.10 - 0.60 /CUMM) 0.5 Absolute Eosinophils (0.0 - 0.7 /CUMM) 0.2 Absolute Basophils (0.0 - 0.2 /CUMM) 0 04/ 1940 Chemistry Sodium (137 - 145 mmol/L) 144 Potassium (3.5 - 5.1 mmol/L) 3.1 L Chloride (98 - 107 mmol/L) 99 Carbon Dioxide (22 - 30 mmol/L) 31 H Anion Gap (5 - 16) 14 BUN (7 - 17 mg/dL) 12 Creatinine (0.5 - 1.0 mg/dL) 0.5 Estimated GFR (>60 ml/min) > 60 BUN/Creatinine Ratio (7 - 25 %) 24.0 Glucose (65 - 99 mg/dL) 114 H Lactic Acid (0.7 - 2.1 mmol/L) 1.1 Calcium (8.4 - 10.2 mg/dL) 10.1 Total Bilirubin (0.2 - 1.3 mg/dL) 0.6 AST (14 - 36 U/L) 20 ALT (9 - 52 U/L) 29 Alkaline Phosphatase (<127 U/L) 143 H Troponin I (< 0.11 ng/ml) < 0.01 Total Protein (6.3 - 8.2 g/dL) 7.3 Albumin (3.5 - 5.0 g/dL) 4.2 Globulin (1.9 - 4.2 gm/dL) 3.1 Albumin/Globulin Ratio (1.1 - 2.2 %) 1.4 Amylase (30 - 110 U/L) 43 Lipase (23 - 300 U/L) 202 Coagulation PT (9.4 - 12.5 SEC) 12.8 H INR (0.90 - 1.19) 1.17 Hematology CBC w Diff NO MAN DIFF REQ WBC (4.8 - 10.8 /CUMM) 12.3 H RBC (4.20 - 5.40 /CUMM) 4.59 Hgb (12.0 - 16.0 G/DL) 13.0 Hct (37 - 47 %) 39.7 MCV (81.0 - 99.0 FL) 86.5 MCH (27.0 - 31.0 PG) 28.3 MCHC (33.0 - 37.0 G/DL) 32.8 L RDW (11.5 - 14.5 %) 14.5 Plt Count (130 - 400 /CUMM) 393 MPV (7.4 - 10.4 FL) 8.3 Gran % (42.2 - 75.2 %) 79.2 H Lymphocytes % (20.5 - 51.1 %) 13.4 L Monocytes % (1.7 - 9.3 %) 6.1 Eosinophils % (0 - 5 %) 0.7 Basophils % (0.0 - 2.0 %) 0.6 Absolute Granulocytes (1.4 - 6.5 /CUMM) 9.8 H Absolute Lymphocytes (1.2 - 3.4 /CUMM) 1.7 Absolute Monocytes (0.10 - 0.60 /CUMM) 0.8 H Absolute Eosinophils (0.0 - 0.7 /CUMM) 0.1 Absolute Basophils (0.0 - 0.2 /CUMM) 0.1 Assessment/Plan Assessment/Plan Pt is a 67-year-old female with a history of rectal cancer, status post chemo and radiation many years ago, with subsequent resulting chronic diarrhea, who is now hospital day #2 with a recurrent small bowel obstruction. Patient's symptoms were not improving this morning, so an NG tube was placed. Plan: -Continue conservative management with nothing by mouth and IV fluid hydration. -Nasogastric tube to low wall suction for decompression. -Serial abdominal exams. -Repeat abdominal x-ray in the morning. -Replete electrolytes as needed. Replacement ordered for low potassium and mag today. -Pepcid for GI prophylaxis, renally adjusted dose. -Subcutaneous heparin and Alps for DVT prophylaxis. Core Measures Venous Thromboembolism VTE Risk Factors Age>40 No Mechanical VTE Prophylaxis d/t N/A MechProphylax Ordered No VTE Pharm Prophylaxis d/t NA PharmProphylax ordered
[2017-10-31 14:22] VITALS: BP 148/74
--- NOTE | 2017-10-31 15:58 | RADIOLOGY REPORT ---
EXAMINATION: XR ABDOMEN MULTIPLE VIEWS CLINICAL INDICATION: Follow-up small bowel obstruction. COMPARISON: CT abdomen pelvis 03/01/2018. TECHNIQUE: 2 views of the abdomen. FINDINGS: No dilated loops of large or small bowel are demonstrated. There is a relative possibility of bowel gas. No evidence of pneumoperitoneum or portal venous gas. No suspicious abdominal calcification. Pelvic phleboliths noted. Chronic flattening and cartilage space narrowing of the left femoral head. Moderate to severe degenerative arthropathy at the right hip. IMPRESSION: Unremarkable bowel gas pattern. No dilated loops of bowel demonstrated.
[2017-10-31 19:45] VITALS: BP 180/90
[2017-10-31 22:06] VITALS: BP 160/84
[2017-11-01 06:33] VITALS: BP 154/82
--- NOTE | 2017-11-01 10:50 | PN- General Surgery ---
Subjective Subjective: pt in bed, still with abd pain, specifically in the LLQ. Upset about having to get gastrograffin study again. says that last time she had it, it caused significant uncontrollable diarrhea that was so bad she had to be moved out of her room and she had incontinence of stool on the table in radiology. We were able to reach a compromise to only give 2 units of the gastrograffin instead of the 4 that she had last time. Objective Vital Signs and I&Os Vital Signs Date Time Temp Pulse Resp B/P B/P Pulse O2 O2 Flow FiO2 Mean Ox Delivery Rate 11/01 632 97.6 72 18 154/82 95 Room Air 10/31 2206 98.0 72 18 160/84 96 Room Air 10/31 1945 98.1 74 20 180/90 97 Room Air 10/31 1422 97.9 82 18 148/74 98 Intake & Output 11/01 1600 11/01 0800 11/01 0000 10/31 1600 10/31 0800 10/31 0000 Intake Total 700 400 832 096 8259 Output Total 1200 150 400 Balance -500 250 149 27 0544 Intake, IV 700 400 043 415 8368 Intake, Oral 0 0 0 Number 0 0 0 Bowel Movements Output, 450 150 Gastric Drainage Output, Urine 750 400 Patient 99 lb 4.99 oz 106 lb Weight Weight Bed scale Measurement Method Physical Exam: gen- NAD but upset about current condition resp- clear cardiac- RRR abd- ND, soft, tender in LLQ, no rebound or gaurding NGT in place- 450cc of output overnight shift Current Medications: Current Medications Sig/Millicent Start time Last Medication Dose Route Stop Time Status Admin Acetaminophen 1,000 MG Q6P PRN 10/30 2330 AC 11/01 N/A 1 UNIT IV 0743 Famotidine 20 MG 1000 10/31 1000 AC 11/01 IV 1019 Heparin Sodium 5,000 UNIT Q8 10/31 0600 AC 10/31 (Porcine) SC 2129 Lisinopril 5 MG DAILY 10/31 1000 AC PO Magnesium Sulfate 1 GM Q2H 10/31 1415 DC 10/31 Dextrose/Water 100 ML IV 10/31 1814 1637 Morphine Sulfate 4 MG Q4P PRN 10/31 0900 AC 10/31 IV 1642 Morphine Sulfate 6 MG Q4P PRN 10/31 0900 AC 11/01 IV 0815 Ondansetron HCl 4 MG Q6P PRN 10/30 2330 AC 11/01 IV 1019 Phenol 2 SPRAY Q2P PRN 11/01 1045 AC EXT Potassium Chloride 10 MEQ Q1H 10/31 1415 DC 10/31 IV 10/31 1616 2129 Potassium Chloride 20 MEQ DAILY 10/31 1000 AC PO Potassium Chloride 20 MEQ Q10H 10/31 0100 AC 10/31 Dextrose/Sodium 1,000 ML IV 1419 Chloride Trazodone HCl 50 MG AT BEDTIME 10/31 220 AC PO Trimethobenzamide HCl 200 MG TID PRN 10/31 2330 AC 10/31 IM 2324 Results Last 48 Hours of Labs: Laboratory Tests 11/01 Chemistry Sodium (137 - 145 mmol/L) 139 141 Potassium (3.5 - 5.1 mmol/L) 3.5 3.0 L Chloride (98 - 107 mmol/L) 101 103 Carbon Dioxide (22 - 30 mmol/L) 29 30 Anion Gap (5 - 16) 9 9 BUN (7 - 17 mg/dL) 5 L 13 Creatinine (0.5 - 1.0 mg/dL) 0.4 L 0.4 L Estimated GFR (>60 ml/min) > 60 > 60 BUN/Creatinine Ratio (7 - 25 %) 12.5 32.5 H Magnesium (1.6 - 2.3 mg/dL) 1.7 1.3 L Troponin I (< 0.11 ng/ml) < 0.01 Hematology CBC w Diff NO MAN DIFF REQ WBC (4.8 - 10.8 /CUMM) 6.3 RBC (4.20 - 5.40 /CUMM) 3.65 L Hgb (12.0 - 16.0 G/DL) 10.5 L Hct (37 - 47 %) 31.6 L MCV (81.0 - 99.0 FL) 86.8 MCH (27.0 - 31.0 PG) 28.8 MCHC (33.0 - 37.0 G/DL) 33.2 RDW (11.5 - 14.5 %) 14.6 H Plt Count (130 - 400 /CUMM) 271 MPV (7.4 - 10.4 FL) 9.0 Gran % (42.2 - 75.2 %) 71.1 Lymphocytes % (20.5 - 51.1 %) 17.8 L Monocytes % (1.7 - 9.3 %) 8.0 Eosinophils % (0 - 5 %) 2.7 Basophils % (0.0 - 2.0 %) 0.4 Absolute Granulocytes (1.4 - 6.5 /CUMM) 4.5 Absolute Lymphocytes (1.2 - 3.4 /CUMM) 1.1 L Absolute Monocytes (0.10 - 0.60 /CUMM) 0.5 Absolute Eosinophils (0.0 - 0.7 /CUMM) 0.2 Absolute Basophils (0.0 - 0.2 /CUMM) 0 10/30 10/30 2242 1940 Chemistry Sodium (137 - 145 mmol/L) 144 Potassium (3.5 - 5.1 mmol/L) 3.1 L Chloride (98 - 107 mmol/L) 99 Carbon Dioxide (22 - 30 mmol/L) 31 H Anion Gap (5 - 16) 14 BUN (7 - 17 mg/dL) 12 Creatinine (0.5 - 1.0 mg/dL) 0.5 Estimated GFR (>60 ml/min) > 60 BUN/Creatinine Ratio (7 - 25 %) 24.0 Glucose (65 - 99 mg/dL) 114 H Lactic Acid (0.7 - 2.1 mmol/L) Cancelled 1.1 Calcium (8.4 - 10.2 mg/dL) 10.1 Total Bilirubin (0.2 - 1.3 mg/dL) 0.6 AST (14 - 36 U/L) 20 ALT (9 - 52 U/L) 29 Alkaline Phosphatase (<127 U/L) 143 H Troponin I (< 0.11 ng/ml) < 0.01 Total Protein (6.3 - 8.2 g/dL) 7.3 Albumin (3.5 - 5.0 g/dL) 4.2 Globulin (1.9 - 4.2 gm/dL) 3.1 Albumin/Globulin Ratio (1.1 - 2.2 %) 1.4 Amylase (30 - 110 U/L) 43 Lipase (23 - 300 U/L) 202 Coagulation PT (9.4 - 12.5 SEC) 12.8 H INR (0.90 - 1.19) 1.17 Hematology CBC w Diff NO MAN DIFF REQ WBC (4.8 - 10.8 /CUMM) 12.3 H RBC (4.20 - 5.40 /CUMM) 4.59 Hgb (12.0 - 16.0 G/DL) 13.0 Hct (37 - 47 %) 39.7 MCV (81.0 - 99.0 FL) 86.5 MCH (27.0 - 31.0 PG) 28.3 MCHC (33.0 - 37.0 G/DL) 32.8 L RDW (11.5 - 14.5 %) 14.5 Plt Count (130 - 400 /CUMM) 393 MPV (7.4 - 10.4 FL) 8.3 Gran % (42.2 - 75.2 %) 79.2 H Lymphocytes % (20.5 - 51.1 %) 13.4 L Monocytes % (1.7 - 9.3 %) 6.1 Eosinophils % (0 - 5 %) 0.7 Basophils % (0.0 - 2.0 %) 0.6 Absolute Granulocytes (1.4 - 6.5 /CUMM) 9.8 H Absolute Lymphocytes (1.2 - 3.4 /CUMM) 1.7 Absolute Monocytes (0.10 - 0.60 /CUMM) 0.8 H Absolute Eosinophils (0.0 - 0.7 /CUMM) 0.1 Absolute Basophils (0.0 - 0.2 /CUMM) 0.1 Assessment/Plan Assessment/Plan 67yo F with recurrent SBO, hx of abdominal surgeries, now with NGT in place. plan for gastrograffin study this morning chloraseptic spray for throat irritation from NGT PRN Cont npo and NGT, to be clamped until after study is compete encourage ambulation Core Measures Venous Thromboembolism VTE Risk Factors Age>40 No Mechanical VTE Prophylaxis d/t N/A MechProphylax Ordered No VTE Pharm Prophylaxis d/t NA PharmProphylax ordered
[2017-11-01 14:40] VITALS: BP 138/88
--- NOTE | 2017-11-01 17:44 | RADIOLOGY REPORT ---
EXAMINATION: XR ABDOMEN MULTIPLE VIEWS CLINICAL INDICATION: Follow-up 6 hours status post Gastrografin. COMPARISON: Abdominal radiography 10/31/2017. TECHNIQUE: 2 views of the abdomen. FINDINGS: Enteric tube terminates within the stomach, with side port overlying the expected location of the gastroesophageal junction. Contrast is demonstrated within the colon. No dilated loops of bowel. No evidence of pneumoperitoneum. Significant degenerative changes of the bilateral hips with chronic flattening/deformity of the left femoral head. IMPRESSION: Contrast demonstrated within the colon argues against small bowel obstruction.
[2017-11-01 22:23] VITALS: BP 140/80
[2017-11-02 05:43] VITALS: BP 130/84
--- NOTE | 2017-11-02 07:36 | PN- General Surgery ---
See Addendum Subjective Subjective: HD #1 with SBO, resolving. Had BM last night after gastrografin administration. NGT removed. Clear liquid diet ordered, yet to have this morning. Ambulating without assistance. Voiding spontaneously. 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 The next morning awoke with severe abdominal pain/discomfort/nausea. Objective Vital Signs and I&Os Vital Signs Date Time Temp Pulse Resp B/P B/P Pulse O2 O2 Flow FiO2 Mean Ox Delivery Rate 11/02 542 97.9 69 20 130/84 96 Room Air 11/01 2223 98.1 69 19 140/80 95 Room Air 11/01 1440 98.2 81 18 138/88 95 Room Air Intake & Output 11/02 0000 11/01 1600 11/01 0000 10/31 1600 Intake Total 240 800 700 400 700 Output Total 100 1200 150 200 Balance 240 700 -500 250 500 Intake, IV 800 700 400 700 Intake, Oral 240 0 0 Number 1 0 0 Bowel Movements Output, 100 450 150 200 Gastric Drainage Output, Urine 750 Physical Exam: Gen: AAOx3 in NAD Cor: S1+S2+ Lungs: CTA faye Abd: soft, NT, ND, +BS x4 Ext: no edema or calf tenderness to faye lower extremities. Current Medications: Current Medications Sig/Millicent Start time Last Medication Dose Route Stop Time Status Admin Acetaminophen 1,000 MG .STK-MED ONE 11/01 1752 DC IV 11/01 175 Acetaminophen 1,000 MG Q6P PRN 10/30 2330 AC 11/01 N/A 1 UNIT IV 1759 Famotidine 20 MG 1000 10/31 1000 AC 11/01 IV 1019 Heparin Sodium 5,000 UNIT Q8 10/31 06 AC 11/02 (Porcine) SC 0611 Lisinopril 5 MG DAILY 10/31 1000 AC PO Melatonin 5 MG AT BEDTIME 11/01 2200 AC 11/01 PO 2106 Morphine Sulfate 4 MG Q4P PRN 10/31 0900 AC 10/31 IV 1642 Morphine Sulfate 6 MG Q4P PRN 10/31 0900 AC 11/01 IV 2102 Ondansetron HCl 4 MG Q6P PRN 10/30 2330 AC 11/01 IV 1621 Phenol 2 SPRAY Q2P PRN 11/01 1045 AC 11/01 EXT 1205 Potassium Chloride 20 MEQ DAILY 10/31 1000 AC PO Potassium Chloride 20 MEQ Q10H 10/31 0100 AC 11/01 Dextrose/Sodium 1,000 ML IV 2340 Chloride Trazodone HCl 50 MG AT BEDTIME 10/31 2200 AC 11/01 PO 2107 Trimethobenzamide HCl 200 MG TID PRN 10/31 2330 AC 10/31 IM 2324 Results Last 48 Hours of Labs: Laboratory Tests 11/02 11/01 10/31 0705 0755 2009 Chemistry Sodium (137 - 145 mmol/L) Pending 139 Potassium (3.5 - 5.1 mmol/L) Pending 3.5 Chloride (98 - 107 mmol/L) Pending 101 Carbon Dioxide (22 - 30 mmol/L) Pending 29 Anion Gap (5 - 16) Pending 9 BUN (7 - 17 mg/dL) Pending 5 L Creatinine (0.5 - 1.0 mg/dL) Pending 0.4 L Estimated GFR (>60 ml/min) > 60 BUN/Creatinine Ratio (7 - 25 %) Pending 12.5 Magnesium (1.6 - 2.3 mg/dL) Pending 1.7 Troponin I (< 0.11 ng/ml) < 0.01 Recent Imaging Studies: EXAMINATION: XR ABDOMEN MULTIPLE VIEWS CLINICAL INDICATION: Follow-up 6 hours status post Gastrografin. COMPARISON: Abdominal radiography 10/31/2017. TECHNIQUE: 2 views of the abdomen. FINDINGS: Enteric tube terminates within the stomach, with side port overlying the expected location of the gastroesophageal junction. Contrast is demonstrated within the colon. No dilated loops of bowel. No evidence of pneumoperitoneum. Significant degenerative changes of the bilateral hips with chronic flattening/deformity of the left femoral head. IMPRESSION: Contrast demonstrated within the colon argues against small bowel obstruction. Assessment/Plan Assessment/Plan A: 67 yo female with recurrent SBOs admitted on 11/01/17 with SBO (NGT output totaled 700 ml -bilious drainage) now s/p gastrografin administration with abdominal xray not consistent with SBO as contrast reaches colon; AVSs Plan: Continue clear liquids. ?advance later today if tolerates. OOB and ambulate. HSQ for DVT ppx. Core Measures Venous Thromboembolism VTE Risk Factors Age>40 No Mechanical VTE Prophylaxis d/t N/A MechProphylax Ordered No VTE Pharm Prophylaxis d/t NA PharmProphylax ordered
--- NOTE | 2017-11-02 07:39 | PN- Student ---
Subjective Subjective: PATIENT STATES SHE IS FEELING WELL, NO OVERNIGHT EVENTS. REPORTS ONE SMALL BM LAST NIGHT, NO FLATUS. REPORTS HUNGER AT THIS TIME AND DENIES N/V SINCE NGT REMOVAL. DENIES CP, SOB, ABDOMINAL PAIN, FEVER AND CHILLS. Objective Objective: Vital Signs Date Time Temp Pulse Resp B/P B/P Pulse O2 O2 Flow FiO2 Mean Ox Delivery Rate 11/02 1357 98.2 74 20 120/60 97 Room Air 11/02 1009 76 134/76 11/02 0543 97.9 69 20 130/84 96 Room Air 11/01 2223 98.1 69 19 140/80 95 Room Air Intake & Output 11/02 1600 11/02 0800 11/02 0000 Intake Total 1320 240 240 Output Total 400 Balance 920 240 240 Intake, IV 600 Intake, Oral 720 240 240 Number 1 1 Bowel Movements Output, Urine 400 Patient 99 lb 4.99 oz Weight GENERAL: RESTING COMFORTABLY IN BED, NAD ABDOMEN: SOFT, NT, ND, NORMOACTIVE BOWELSOUNDS THROUGHOUT CARDIAC: RRR, NO MRG PULM: CTAB, NO ACCESSORY MUSCLE USAGE LOWER EXTREMITIES: NO EDMEA OR ERYTHEMA, GROSS MOTOR AND SENSORY FUNCTION INTACT , 2+ DP PULSE B/L Laboratory Tests 11/02 0705 Chemistry Sodium (137 - 145 mmol/L) 139 Potassium (3.5 - 5.1 mmol/L) 3.9 Chloride (98 - 107 mmol/L) 102 Carbon Dioxide (22 - 30 mmol/L) 29 Anion Gap (5 - 16) 8 BUN (7 - 17 mg/dL) 7 Creatinine (0.5 - 1.0 mg/dL) 0.4 L Estimated GFR (>60 ml/min) > 60 BUN/Creatinine Ratio (7 - 25 %) 17.5 Magnesium (1.6 - 2.3 mg/dL) 1.7 Recent Imaging Studies: EXAMINATION: XR ABDOMEN MULTIPLE VIEWS CLINICAL INDICATION: Follow-up 6 hours status post Gastrografin. COMPARISON: Abdominal radiography 10/31/2017. TECHNIQUE: 2 views of the abdomen. FINDINGS: Enteric tube terminates within the stomach, with side port overlying the expected location of the gastroesophageal junction. Contrast is demonstrated within the colon. No dilated loops of bowel. No evidence of pneumoperitoneum. Significant degenerative changes of the bilateral hips with chronic flattening/deformity of the left femoral head. IMPRESSION: Contrast demonstrated within the colon argues against small bowel obstruction. Assessment/Plan Assessment: 67 Y/O FEMALE, HD #3 FOR CONSERVATIVE MANAGEMENT OF SBO. IMAGING INDACTES SBO HAS RESOLVED, BOWEL FUNCTION HAS RETURNED, TOLERATING ORAL DIET WELL. Plan: OOB TOLERATED FULL LIQUID DIET, ADVANCE TOLERATED PPX: SQH, PNEUMATIC COMPRESSION DEVICES, OOB D/C PLANNING
[2017-11-02 13:57] VITALS: BP 120/60
[2017-11-02 22:41] VITALS: BP 110/60
--- NOTE | 2017-11-03 07:29 | PN- General Surgery ---
Subjective Subjective: Patient doing well this morning. She reports that she feels improved from her bowel obstruction. She has some mid left abdominal discomfort that she reports is very mild compared to her initial symptoms. She's been passing flatus and having bowel movements, and denies any eructations or hiccups. She's been ambulating, voiding, and tolerating a full liquid diet. Patient denies any other issues or complaints Objective Vital Signs and I&Os Vital Signs Date Time Temp Pulse Resp B/P B/P Pulse O2 O2 Flow FiO2 Mean Ox Delivery Rate 11/02 2241 98.6 80 18 110/60 96 Room Air 11/02 1357 98.2 74 20 120/60 97 Room Air 11/02 1009 76 134/76 Intake & Output 11/03 0000 11/02 1600 11/02 0000 11/01 1600 Intake Total 1320 240 240 800 Output Total 400 100 Balance 920 240 240 700 Intake, IV 600 800 Intake, Oral 720 240 240 Number 1 1 Bowel Movements Output, 100 Gastric Drainage Output, Urine 400 Patient 99 lb 4.99 oz Weight Physical Exam: General: A, A, NAD Abdomen: S, NT, ND Extremities: No clubbing, cyanosis or edema Current Medications: Current Medications Sig/Millicent Start time Last Medication Dose Route Stop Time Status Admin Acetaminophen 1,000 MG Q6P PRN 10/30 2330 AC 11/01 N/A 1 UNIT IV 1759 Famotidine 20 MG 1000 10/31 1000 AC 11/02 IV 1009 Heparin Sodium 5,000 UNIT Q8 10/31 06 AC 11/02 (Porcine) SC 1343 Lisinopril 5 MG DAILY 10/31 1000 AC 11/02 PO 1009 Melatonin 5 MG AT BEDTIME 11/01 2200 AC 11/02 PO 2116 Morphine Sulfate 4 MG Q4P PRN 10/31 0900 AC 11/03 IV 0045 Morphine Sulfate 6 MG Q4P PRN 10/31 0900 AC 11/01 IV 2102 Ondansetron HCl 4 MG Q6P PRN 10/30 2330 AC 11/01 IV 1621 Patient Medication 1 ED ONE ONE 11/02 1445 DC Teaching ED 11/02 1446 Phenol 2 SPRAY Q2P PRN 11/01 1045 AC 11/01 EXT 1205 Potassium Chloride 20 MEQ DAILY 10/31 1000 AC 11/02 PO 1009 Potassium Chloride 20 MEQ Q10H 10/31 0100 AC 11/02 Dextrose/Sodium 1,000 ML IV 211 Chloride Trazodone HCl 50 MG AT BEDTIME 10/31 2199 AC 11/02 PO 211 Trimethobenzamide HCl 200 MG TID PRN 10/31 2330 AC 10/31 IM 2324 Results Last 48 Hours of Labs: Laboratory Tests 11/02 11/01 0705 0755 Chemistry Sodium (137 - 145 mmol/L) 139 139 Potassium (3.5 - 5.1 mmol/L) 3.9 3.5 Chloride (98 - 107 mmol/L) 102 101 Carbon Dioxide (22 - 30 mmol/L) 29 29 Anion Gap (5 - 16) 8 9 BUN (7 - 17 mg/dL) 7 5 L Creatinine (0.5 - 1.0 mg/dL) 0.4 L 0.4 L Estimated GFR (>60 ml/min) > 60 > 60 BUN/Creatinine Ratio (7 - 25 %) 17.5 12.5 Magnesium (1.6 - 2.3 mg/dL) 1.7 1.7 Assessment/Plan Assessment/Plan This is a 67-year-old female with history of colon cancer, status post resection , chemotherapy and radiation in [id number] who has a long-standing history of recurrent bowel obstructions and chronic diarrhea who has been admitted to the surgical service with a recurrent sbo, now resolved with conservative management. Plan is to advance to a low residue diet and if she tolerates this, the patient will be to be discharged to home with plans to follow-up with Dr. Gordon. In the meantime I have encouraged ambulation, incentive spirometry, turn, cough, and deep breathing techniques. She is ordered for GI and DVT prophylaxis as well as when necessary analgesics and antiemetics. Continue home medications. Case has been discussed with Dr. Gordon who is in agreement with the plan of care. Problem List: 1. Small bowel obstruction due to adhesions Core Measures Venous Thromboembolism VTE Risk Factors Age>40 No Mechanical VTE Prophylaxis d/t N/A MechProphylax Ordered No VTE Pharm Prophylaxis d/t NA PharmProphylax ordered
[2017-11-03 08:37] VITALS: BP 122/64
--- NOTE | 2017-11-03 08:50 | Patient Discharge Instructions ---
Discharge Instructions General Discharge Information You were seen/treated for: Small Bowel Obstruction You had these procedures: none Watch for these problems: recurrence of symptoms, abdominal pain, nausea, vomiting, excessive diarrhea, or no bowel movements Diet Continue normal diet: Yes Recommended Diet: Low Residue Activity Full Activity/No Limits: Yes Activity Self Limited: Yes Acute Coronary Syndrome Inclusion Criteria At DC or during hospital stay patient has or had the following: ACS DIAGNOSIS No Discharge Core Measures Meds if any: Prescribed or Continued at Discharge Meds if any: NOT Prescribed or Continued at Discharge Congestive Heart Failure Inclusion Criteria At DC or during hospital stay patient has or had the following: CHF DIAGNOSIS No Discharge Core Measures Meds if any: Prescribed or Continued at Discharge Meds if any: NOT Prescribed or Continued at Discharge Cerebrovascular accident Inclusion Criteria At DC or during hospital stay patient has or had the following: CVA/TIA Diagnosis No Discharge Core Measures Meds if any: Prescribed or Continued at Discharge Meds if any: NOT Prescribed or Continued at Discharge Venous thromboembolism Inclusion Criteria VTE Diagnosis No VTE Type NONE VTE Confirmed by (Test) NONE Discharge Core Measures - Per Current guidelines, there needs to be overlap - treatment for the first 5 days of Warfarin therapy. - If discharged on Warfarin prior to 5 days of - overlap therapy, the patient will need to be - assessed for post discharge needs including - *Post discharge parental anticoagulation - *Warfarin and/or parental anticoagulation education - *Follow up date to check INR post discharge At least 5 days overlap therapy as Inpatient No Meds if any: Prescribed or Continued at Discharge Note: Overlap Therapy is Warfarin and Anticoagulant Meds if any: NOT Prescribed or Continued at Discharge
[2017-11-03 09:04] VITALS: BP 122/62
--- NOTE | 2017-11-03 09:06 | Surgical Discharge Summary ---
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 BROTHER Psychosocial History Where Do You Live? Home Who Do You Live With? Son Services at Home: None What is Your Primary Language? Slovenian Review of Systems: as per hpi Physical Exam: General: A, A, NAD Abdomen: S, NT, ND Extremities: No clubbing, cyanosis or edema Hospital Course Course Attending Physician: Ezekiel Gordon DO Primary Care Physician: Hill HOLMAN,[facility] Course: Patient is a 67-year-old female with history of colon cancer, status post resection, chemotherapy and radiation in [id number]. She has a long-standing history of recurrent bowel obstructions and chronic diarrhea. Patient reported to the ED this evening with complaints of severe abdominal pain 10 out of 10, nausea, and large volume emesis (filled up a small trash can) 3 hours prior to admission. She states that she saw Dr. Palomino on Thursday for a routine visit and was started on Xifaxan for chronic diarrhea, which she feels may have prompted her symptoms. She also takes Lomotil and opium tincture on a regular basis to alleviate symptoms of chronic diarrhea. Prior to this admission, patient was feeling well for a few months and was happy that she had gained a few pounds. Workup performed in the ED revealed CT evidence of moderate to high -grade small bowel obstruction with fecalization of the small bowel. She does have a history of ileocecectomy in 2014. At this time, pain levels have improved with morphine, currently 5/10. She is refusing nasogastric tube because she states that she is "completely empty." Otherwise denies headache, dizziness, chest pain, shortness of breath, constipation, oliguria. Last bowel movement was yesterday and appetite has been poor all day. Workup was obtainted and revealed a moderate to high-grade small bowel obstruction. Her symptoms this time seemed to have been precipitated by initiation of Xifaxan this week, although she is also on several other meds for diarrhea. She was admitted to the surgical service and intiated on conservative management including npo and IVF, serial labs and abdominal exams/x-rays. NGT was placed on HOD#1 after she initially refused it. On HOD#2 she underwent a gastrograffin study which demonstrated contrast within the colon which argues against a small bowel obstruction. At this point in time NGT was removed and diet was readvanced in a stepwise fashion as tolerated. She had return of bowel function after the gastrograffin study which continued through discharge. At time of discharge she was ambulating, voiding, and tolerating a low residue diet. Plan is for the patient to be discharged home and follow up with Dr. Gordon in 1-2 weeks as an outpatient. Full details of her hospital course and discharge instructions can be found in her electronic chart. Complications: none Allergies: Coded Allergies: NO KNOWN ALLERGIES (09/07/15) Significant Procedures: none Disposition Summary Disposition Principal Diagnosis: sbo Additional Diagnosis: none Discharge Disposition: home or self care Discharge Instructions General Discharge Information Code Status: Full Code Patient's Diet: regular low residue Patient's Activity: as tolerated Follow-Up Instructions/Appts: please see electronic dc instructions Medications at Discharge Discharge Medications: Continue taking these medications: Cholecalciferol (Vitamin D3) 1,000 UNIT TABLET 1 Tablet ORAL DAILY Comments: Last Taken: 12/09/16 Time: 9AM Vitamin E (Vitamin E) (Unknown Strength) CAPSULE 1 Capsule ORAL DAILY Comments: NOT GIVEN IN HOSPITAL Cranberry Extract (Cranberry) (Unknown Strength) CAPSULE 1 Capsule ORAL DAILY Comments: NOT GIVEN IN HOSPITAL [BLACK SERNA] 1 Capsule ORAL DAILY Comments: NOT GIVEN IN HOSPITAL Lisinopril (Lisinopril) 5 MG TABLET 1 Tablet ORAL DAILY Qty = 90 Comments: Last Taken:02/17/17 Time:9AM 2.5MG Potassium Chloride (Potassium Chloride) 20 MEQ TAB.ER.PRT 1 Tablet ORAL DAILY Qty = 30 Trazodone HCl (Trazodone HCl) 50 MG TABLET 1 Tablet ORAL TAKE AT BEDTIME Qty = 90 Lactase (Dairy Digestive) (Unknown Strength) TABLET 2 Tablet ORAL DAILY Teduglutide (Gattex) (Unknown Strength) KIT 1 Syringe Inject into fatty tissue AT BEDTIME Aspirin (Ecotrin*) 81 MG TABLET.DR 1 Tablet ORAL DAILY Bifidobacterium Infantis (Align) 10.5 MG (10 MILLION CELL) TAB.CHEW 1 Tablet ORAL DAILY Diphenoxylate HCl/Atropine (Lomotil 2.5-0.025 MG Tablet) 2.5 MG-0.025 MG TABLET 8 Tablet ORAL DAILY Qty = 240 Opium Tincture (Opium Tincture) 10 MG/ML (MORPHINE) TINCTURE 2 Milliliters ORAL DAILY as needed for DAILY Qty = 96 Copies To: Ezekiel Gordon DO; Hill HOLMAN,Malena
== END 2017-11-03 14:51 | DRG 390 ==
LOC: ERH 19:09 → ERHI 21:56 → 2NA 21:56 → EDBEDREQ 23:46 → ENRESERV 10-31 00:26 → 2NA 10-31 00:41 → ENPENDDIS 11-03 08:54 → ENTRNSPT 11-03 14:35 → 2NA 11-03 14:51 → EDTRNSPT 11-03 15:17 → EDTRNSPTSTS 11-03 15:17 → CMPTRNSPT 11-03 15:39
PROVIDERS: Pediatrics; Physician Assistant Surgical
PROC: 0D9670Z Drainage of Stomach with Drainage Device, Via Natural or Artificial Opening (ICD-10-PCS; principal; 2017-10-31)
DX: K56.600 Partial intestinal obstruction, unspecified as to cause (principal); I25.2 Old myocardial infarction; K52.89 Other specified noninfective gastroenteritis and colitis; R11.0 Nausea; T36.6X5A Adverse effect of rifampicins, initial encounter; R10.84 Generalized abdominal pain; Z85.038 Personal history of other malignant neoplasm of large intestine; Z90.49 Acquired absence of other specified parts of digestive tract; Z92.21 Personal history of antineoplastic chemotherapy; Z92.3 Personal history of irradiation; Z90.722 Acquired absence of ovaries, bilateral; M19.90 Unspecified osteoarthritis, unspecified site; Z86.718 Personal history of other venous thrombosis and embolism
CPT/HCPCS: 2NASP; ERO; 36592; 71045; 74021; 74176; 82436; 93005; 93010; 96374; 96375; J0131; J1644; J2405; J2550; J3250; J3480; J7042

== ENCOUNTER 2017-12-05 17:28 | Emergency (ER) | payer OTHER ==
[~2017-12-05] VITALS: Ht 160 cm; Wt 45.4 kg
[~2017-12-05 17:28] MED LIST changes: +ALIGN10.5 MG PO; +ASPIRIN EC81 M1 PO
[2017-12-05 18:08] LABS: ABSOLUTE BASOPHIL COUNT 0.1 /CUMM (0.0-0.2); ABSOLUTE EOSINOPHIL COUNT 0.1 /CUMM (0.0-0.7); ABSOLUTE GRANULOCYTE CT 6.9 /CUMM (1.4-6.5); ABSOLUTE LYMPH COUNT 1.7 /CUMM (1.2-3.4); ABSOLUTE MONOCYTE COUNT 0.6 /CUMM (0.10-0.60); BASOPHIL % 0.6 % (0.0-2.0); EOSINOPHIL % 0.8 % (0-5); GRANULOCYTE % 73.7 % (42.2-75.2); HEMATOCRIT 38.6 % (37-47); MEAN CORPUSCULAR HGB 28.6 PG (27.0-31.0); MEAN CORPUSCULAR HGB CONC 33.1 G/DL (33.0-37.0); MEAN CORPUSCULAR VOLUME 86.5 FL (81.0-99.0); MEAN PLATELET VOLUME 7.7 FL (7.4-10.4); PLATELET COUNT 368 /CUMM (130-400); RBC DISTRIBUTION WIDTH 15.1 % (11.5-14.5); RED BLOOD CELL CT 4.46 /CUMM (4.20-5.40); WHITE BLOOD CELL COUNT 9.4 /CUMM (4.8-10.8)
--- NOTE | 2017-12-05 20:52 | ED GI/GU/ABDOMINAL COMPLAINT ---
History of Present Illness General Chief Complaint: Nausea, Vomiting, Diarrhea Stated Complaint: VOMITING Source: patient, old records Exam Limitations: no limitations Vital Signs & Intake/Output Vital Signs & Intake/Output Vital Signs Date Time Temp Pulse Resp B/P B/P Pulse O2 O2 Flow FiO2 Mean Ox Delivery Rate 12/05 2309 97.9 80 18 144/72 97 Room Air Room Air 12/05 2141 98.3 83 18 161/74 100 Room Air 12/05 1741 97.2 84 16 141/83 98 Room Air ED Intake and Output 12/06 0000 12/05 1200 Intake Total 1000 Output Total Balance 1000 Intake, IV 1000 Patient 99 lb 15.99 oz Weight Weight Reported by Patient Measurement Method Allergies Coded Allergies: NO KNOWN ALLERGIES (09/07/15) Reconcile Medications Aspirin (Ecotrin*) 81 MG TABLET.DR 1 TAB PO DAILY HEART HEALTH (Reported) Bifidobacterium Infantis (Align) 10.5 MG (10 MILLION CELL) TAB.CHEW 1 TAB PO DAILY PROBIOTIC (Reported) [BLACK SERNA] 1 CAP PO DAILY SUPPLEMENT (Reported) Cholecalciferol (Vitamin D3) 1,000 UNIT TABLET 1 TAB PO DAILY VITAMIN SUPPORT (Reported) Cranberry Extract (Cranberry) (Unknown Strength) CAPSULE 1 CAP PO DAILY SUPPLEMENT (Reported) Diphenoxylate HCl/Atropine (Lomotil 2.5-0.025 MG Tablet) 2.5 MG-0.025 MG TABLET 8 TAB PO DAILY DIARRHEA (Reported) Lactase (Dairy Digestive) (Unknown Strength) TABLET 2 TAB PO DAILY DIGESTIVE AID (Reported) Lisinopril 5 MG TABLET 1 TAB PO DAILY HEART (Reported) Ondansetron (Zofran Odt) 4 MG TAB.RAPDIS 1 TAB SL TID PRN nausea Opium Tincture 10 MG/ML (MORPHINE) TINCTURE 2 ML PO DAILY PRN DAILY (Reported ) Potassium Chloride 20 MEQ TAB.ER.PRT 1 TAB PO DAILY hypokalemia Teduglutide (Gattex) (Unknown Strength) KIT 1 SYR SC AT BEDTIME BOWEL MELE ( Reported) Trazodone HCl 50 MG TABLET 1 TAB PO QHS SLEEP (Reported) Vitamin E (Unknown Strength) CAPSULE 1 CAP PO DAILY VITAMIN SUPPORT (Reported ) Triage Note: PT PRESENTS TO THE ER C/ VOMITTING. PT STATES THAT SHE WAS GETTING HER NAILS DONE AND GOT NAUSEOUS AND STARTED VOMITTING BILE.. PT STATES THAT SHE WAS HER October AND WAS ADMITTED FOR BOWEL OBSTRUCTION.. PT STATES THAT THE SYMPTOMS ARE THE SAME.. PT STATES THAT SHE HAS ABD PAIN LOWER ABD 7/10 Triage Nurses Notes Reviewed? yes ? N Is pt currently ? No Onset: Abrupt Duration: hour(s): Timing: single episode today Quality/Severity: severe Severity Numbers: 7 Location: LOWER ABDOMEN Prior Abdominal Problems: similar symptoms HPI: 67YO female with hx of SBO, colon CA s/p colectomy, HTN, ID presents to ED complaining of abrupt onset nausea and vomiting occuring prior to arrival. Patient states that she was on a nail salon getting her nails done when she had nausea and bilious vomiting. Patient reports bilateral lower abdominal pain described as 7/10. Patient states her current symptoms feel similar to previous episodes of small bowel extraction. Patient had a small bowel obstruction in October for which she was admitted for 4 days, had NG tube, did not require surgery. Patient has chronic diarrhea, last bowel movement this morning. She has been passing flatus. (Ashtyn ALBERTS,Allie Womack) Past History Travel History Traveled to [place] past 21 day No Medical History Any Pertinent Medical History? 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, OOPHORECTOMY History of MRSA: No History of VRE: No History of CDIFF: No Influenza Vaccine: 06/10/17 Surgical History Surgical History: colon resection (2001), hysterectomy, 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 BROTHER Hx Contributory? No (Allie Miranda) Review of Systems Review of Systems Constitutional: Reports: no symptoms. EENTM: Reports: no symptoms. Respiratory: Reports: no symptoms. Cardiovascular: Reports: no symptoms. GI: Reports: see HPI. Genitourinary: Reports: no symptoms. Musculoskeletal: Reports: no symptoms. Skin: Reports: no symptoms. Neurological/Psychological: Reports: no symptoms. Hematologic/Endocrine: Reports: no symptoms. Immunologic/Allergic: Reports: no symptoms. All Other Systems: Reviewed and Negative (Ashtyn ALBERTS,Allie Womack) Physical Exam Physical Exam General Appearance: well developed/nourished, no apparent distress, alert, awake Head: atraumatic, normal appearance Eyes: Bilateral: normal appearance. Ears, Nose, Throat, Mouth: hearing grossly normal Neck: normal inspection, supple, full range of motion Respiratory: normal breath sounds, no respiratory distress, lungs clear Cardiovascular: regular rate/rhythm Gastrointestinal: normal bowel sounds, soft, no organomegaly, mild bilateral lower abdominal tenderness Back: normal inspection, normal range of motion Extremities: normal range of motion Neurologic/Psych: awake, alert, oriented x 3 Skin: intact, normal color, warm/dry Core Measures ACS in differential dx? No Sepsis Present: No Sepsis Focused Exam Completed? No (Allie Miranda) Progress Differential Diagnosis: appendicitis, bowel obstruction, diverticulitis, gastritis, hepatitis, ischemic bowel, inflamm bowel dis, perforated viscous, SBO Plan of Care: Orders Procedure Date/time Status LIPASE 12/05 1741 Complete LACTIC ACID 12/05 174 Complete COMPREHENSIVE METABOLIC PANEL 12/05 1741 Complete CBC WITHOUT DIFFERENTIAL 12/05 174 Complete AMYLASE 12/05 1741 Complete Laboratory Tests 12/05/17 2041: Lactic Acid Cancelled 12/05/17 1757: Anion Gap 12, Estimated GFR > 60, BUN/Creatinine Ratio 37.5 H, Glucose 82, Lactic Acid 0.6 L, Calcium 9.5, Total Bilirubin 0.6, AST 21, ALT 27, Alkaline Phosphatase 122, Total Protein 7.0, Albumin 4.2, Globulin 2.8, Albumin/Globulin Ratio 1.5, Amylase 48, Lipase 70, CBC w Diff NO MAN DIFF REQ, RBC 4.46, MCV 86.5 , MCH 28.6, MCHC 33.1, RDW 15.1 H, MPV 7.7, Gran % 73.7, Lymphocytes % 18.0 L, Monocytes % 6.9, Eosinophils % 0.8, Basophils % 0.6, Absolute Granulocytes 6.9 H, Absolute Lymphocytes 1.7, Absolute Monocytes 0.6, Absolute Eosinophils 0.1, Absolute Basophils 0.1 No SBO seen on CT scan. Patient reports some improvement following IV fluids and pain medication. Patient is now tolerating PO. Patient feels ready to go home at this time. Vital signs are stable, she is in no acute distress. Patient was given strict return precautions. The patient agrees with the plan of care. Diagnostic Imaging: Viewed by Me: CT Scan. Discussed w/RAD: CT Scan. Radiology Impression: PATIENT: DILIP BUCHANAN PRESENT AGE: 67 PATIENT ACCOUNT NO: [id number] : 49 LOCATION: [facility] ORDERING PHYSICIAN: Allie ALBERTS SERVICE DATE: 12/05/17 EXAM TYPE: CAT - CT ABD & PELVIS W IV CONTRAST EXAMINATION: CT ABDOMEN AND PELVIS WITH CONTRAST CLINICAL INFORMATION: Rule out SBO and hernia. Nausea and vomiting. COMPARISON: CT of the abdomen and pelvis 10/30/2017. TECHNIQUE: Multidetector volumetric imaging was performed of the abdomen and pelvis following IV administration of 95 mL of Optiray 320 intravenous contrast. Sagittal and coronal reformatted images were obtained on the technologist's workstation. DLP: 268 mGy-cm FINDINGS: LUNG BASES: The visualized lung bases are unremarkable. LIVER, GALLBLADDER, AND BILIARY TREE: Hypoattenuating lesions throughout the liver are again identified the largest in the left lobe measuring 3.5 cm likely representing cysts. No intrahepatic ductal dilatation. The gallbladder is unremarkable with no evidence of radiopaque gallstones, gallbladder wall thickening, or obvious pericholecystic inflammatory changes. PANCREAS: Within normal limits. The main pancreatic duct measures up to 3 mm in the head. SPLEEN: Unremarkable. ADRENAL GLANDS: Unremarkable. KIDNEYS AND URETERS: Subcentimeter cyst in the lower pole left kidney. No hydronephrosis, nephrolithiasis, or mass. BLADDER: Unremarkable. GASTROINTESTINAL TRACT: There is fluid within the stomach. Anastomotic sutures are noted within the ascending colon and within the rectum. There is mild perirectal thickening which is nonspecific. There is fluid within nondistended loops of small bowel. There is liquid stool within the ascending and transverse colon. No bowel dilatation or transition point. No evidence of obstruction. The appendix is not seen. ABDOMINAL WALL: No significant hernia is appreciated. LYMPH NODES: Reactive appearing lymph nodes in the inguinal regions bilaterally. VASCULAR: Mild atheromatous changes in the abdominal aorta and its branch vessels. PELVIC VISCERA: No pelvic mass. OSSEOUS STRUCTURES: Multilevel degenerative changes in the lumbar spine. No acute fracture. There are severe degenerative changes at the left more than right hip joints. There is marked flattening and remodeling of the left femoral head and acetabulum. IMPRESSION: - No evidence of bowel obstruction. Liquid stool is present within the ascending and transverse colon. - Nonspecific fluid within nondistended loops of small bowel. - Sutures are present within the right colon and in the rectum. Mild perirectal thickening is present which is a nonspecific finding. DICTATED BY: Cody Ragsdale MD DATE/ TIME DICTATED:12/05/172212 SECTION 8 PROPERTY MANAGER:AGA DATE/TIME TRANSCRIBED: 12/05/172212 CONFIDENTIAL, DO NOT COPY WITHOUT APPROPRIATE AUTHORIZATION. < Electronically signed in Other Vendor System> SIGNED BY: Cody Ragsdale MD 12/05/172229 Initial ED EKG: none (Ashtyn ALBERTS,Allie Womack) Departure Departure Disposition: HOME OR SELF CARE Condition: Stable Clinical Impression Primary Impression: Abdominal pain Qualifiers: Abdominal location: lower abdomen, unspecified Qualified Code: R10.30 - Lower abdominal pain, unspecified Secondary Impressions: Nausea & vomiting Qualifiers: Vomiting type: bilious vomiting Qualified Code: R11.14 - Bilious vomiting Referrals: Malena Alejandre MD (PCP/Family) Additional Instructions: Take Zofran as prescribed as needed for nausea. Follow-up with your primary care doctor. Return if worsening symptoms or concerns. Please note that there might be incidental findings in your evaluation that are unrelated to the current emergency department visit. Please notify your primary care doctor about this emergency department visit in order to obtain and review all of the testing performed so that these incidental findings can be monitored as needed. If you had an x-ray performed, please understand that some fractures may not be seen on the initial set of x-rays. If your symptoms persist you might need a repeat set of x-rays to check for such a fracture. If you had a laceration evaluated, please understand that foreign bodies such as glass or wood may not be visible to the naked eye or on plain x-rays. If the wound becomes red, swollen, increasingly more painful or if there is any drainage from the wound, please have it reevaluated by a physician for the possibility of a retained foreign body. If you're unable to follow up as outlined in the discharge instructions please return to the emergency department. Thank you for choosing the [facility] Emergency Department for your care. It was a pleasure to serve you today. Departure Forms: Customer Survey General Discharge Information Prescriptions: Current Visit Scripts Ondansetron (Zofran Odt) 1 TAB SL TID PRN nausea #10 TAB (Ashtyn ALBERTS,Allie Womack) PA/RECEPTIONIST CLERK Co-Sign Statement Statement: ED Attending supervision documentation- x I saw and evaluated the patient. I have also reviewed all the pertinent lab results and diagnostic results. I agree with the findings and the plan of care as documented in the PA's/RECEPTIONIST CLERK's documentation. [] I have reviewed the ED Record and agree with the PA's/RECEPTIONIST CLERK's documentation. [] Additions or exceptions (if any) to the PAs/RECEPTIONIST CLERK's note and plan are summarized below: [] (Rosangela HOLMAN,Parviz)
--- NOTE | 2017-12-05 22:30 | CT SCAN REPORT ---
EXAMINATION: CT ABDOMEN AND PELVIS WITH CONTRAST CLINICAL INFORMATION: Rule out SBO and hernia. Nausea and vomiting. COMPARISON: CT of the abdomen and pelvis 10/30/2017. TECHNIQUE: Multidetector volumetric imaging was performed of the abdomen and pelvis following IV administration of 95 mL of Optiray 320 intravenous contrast. Sagittal and coronal reformatted images were obtained on the technologist's workstation. DLP: 268 mGy-cm FINDINGS: LUNG BASES: The visualized lung bases are unremarkable. LIVER, GALLBLADDER, AND BILIARY TREE: Hypoattenuating lesions throughout the liver are again identified the largest in the left lobe measuring 3.5 cm likely representing cysts. No intrahepatic ductal dilatation. The gallbladder is unremarkable with no evidence of radiopaque gallstones, gallbladder wall thickening, or obvious pericholecystic inflammatory changes. PANCREAS: Within normal limits. The main pancreatic duct measures up to 3 mm in the head. SPLEEN: Unremarkable. ADRENAL GLANDS: Unremarkable. KIDNEYS AND URETERS: Subcentimeter cyst in the lower pole left kidney. No hydronephrosis, nephrolithiasis, or mass. BLADDER: Unremarkable. GASTROINTESTINAL TRACT: There is fluid within the stomach. Anastomotic sutures are noted within the ascending colon and within the rectum. There is mild perirectal thickening which is nonspecific. There is fluid within nondistended loops of small bowel. There is liquid stool within the ascending and transverse colon. No bowel dilatation or transition point. No evidence of obstruction. The appendix is not seen. ABDOMINAL WALL: No significant hernia is appreciated. LYMPH NODES: Reactive appearing lymph nodes in the inguinal regions bilaterally. VASCULAR: Mild atheromatous changes in the abdominal aorta and its branch vessels. PELVIC VISCERA: No pelvic mass. OSSEOUS STRUCTURES: Multilevel degenerative changes in the lumbar spine. No acute fracture. There are severe degenerative changes at the left more than right hip joints. There is marked flattening and remodeling of the left femoral head and acetabulum. IMPRESSION: - No evidence of bowel obstruction. Liquid stool is present within the ascending and transverse colon. - Nonspecific fluid within nondistended loops of small bowel. - Sutures are present within the right colon and in the rectum. Mild perirectal thickening is present which is a nonspecific finding.
[2017-12-05] MEDS ORDERED: ZOFRAN ODT4 M1 SL (22:46)
[2017-12-05 23:09] VITALS: BP 144/72
== END 2017-12-05 23:26 ==
LOC: ERH 17:28
PROVIDERS: Physician Assistant Medical
DX: R11.2 Nausea with vomiting, unspecified (principal); R10.32 Left lower quadrant pain; R10.31 Right lower quadrant pain
CPT/HCPCS: 74177; 96361; 96374; 96375; 96376; J2405